=== PATIENT | male | born 1935 | race Caucasian/White ===

== ENCOUNTER 2022-10-13 12:07 | Outpatient (OUT) | payer MEDICARE, SELFPAY ==
[2022-10-13 13:53] LABS: Free T3 1.81 pg/mL (2.18-3.98); Thyroid Stimulating Hormone 1.445 uIU/mL (0.358-3.740)
== END 2022-10-13 12:08 | disposition home or self-care (01) ==
LOC: LAB 12:11
PROVIDERS: PCP Family Medicine; Visit Provider Family Medicine
DX: E03.9 Hypothyroidism, unspecified (principal)
CPT/HCPCS: 36415; 84436; 84443; 84481

== ENCOUNTER 2022-12-01 14:29 | Outpatient (OUT) | payer MEDICARE, SELFPAY ==
[2022-12-01 14:53] LABS: Hematocrit 41.9 % (42.0-54.0); Hemoglobin 13.8 g/dL (14.0-18.0); Mean Corpuscular HGB Conc 32.9 g/dL (29.9-35.2); Mean Corpuscular Hemoglobin 32.2 pg (25.9-34.0); Mean Corpuscular Volume 97.7 fL (80.0-94.0); Mean Platelet Volume 10.1 fL (9.5-13.5); Platelet Count 169 10^3/uL (150-450); Red Blood Count 4.29 10^6/uL (4.70-6.10); Red Cell Distribution Width 13.3 % (11.0-15.0); White Blood Count 6.1 10^3/uL (4.0-11.0)
[2022-12-01 15:03] LABS: Band Neutrophils Absolute 0.2 10^3/uL (0.0-0.3)
[2022-12-01 15:04] LABS: Eosinophils Absolute Manual 0.12 10^3/uL (0.00-0.70); Monocytes Absolute Manual 0.85 10^3/uL (0.30-0.80); Segmented Neut Absolute Manual 3.17 10^3/uL (1.4-6.5)
[2022-12-01 16:21] LABS: Alanine Aminotransferase 28 U/L (16-63); Albumin Globulin Ratio 0.9; Albumin Level 3.6 g/dL (3.4-5.0); Alkaline Phosphatase 71 U/L (46-116); Anion Gap 14.4; Aspartate Amino Transferase 17 U/L (15-37); BUN Creatinine Ratio 18.4; Bilirubin Total 0.7 mg/dL (0.2-1.0); Calcium 8.8 mg/dL (8.5-10.1); Carbon Dioxide 24.6 mmol/L (21.0-32.0); Chloride 104 mmol/L (98-107); Estimated GFR (African America >60 (>=60); Estimated GFR (Non-African Ame >60 (>=60); Globulin 3.9 g/dL; Glucose 80 mg/dL (74-106); Sodium 139 mmol/L (136-145); Thyroid Stimulating Hormone 0.729 uIU/mL (0.358-3.740); Total Protein 7.5 g/dL (6.4-8.2)
== END 2022-12-01 14:30 | disposition home or self-care (01) ==
LOC: LAB 14:29
PROVIDERS: PCP Family Medicine; Visit Provider Family Medicine
DX: E78.5 Hyperlipidemia, unspecified (principal); E03.9 Hypothyroidism, unspecified; I11.0 Hypertensive heart disease with heart failure; I50.30 Unspecified diastolic (congestive) heart failure
CPT/HCPCS: 36415; 80053; 83880; 84439; 84443; 85027

== ENCOUNTER 2023-01-19 14:24 | Outpatient (OUT) | payer MEDICARE, SELFPAY ==
[2023-01-19 14:51] LABS: Hematocrit 41.1 % (42.0-54.0); Mean Corpuscular HGB Conc 34.1 g/dL (29.9-35.2); Mean Corpuscular Hemoglobin 32.9 pg (25.9-34.0); Mean Corpuscular Volume 96.7 fL (80.0-94.0); Mean Platelet Volume 10.3 fL (9.5-13.5); Platelet Count 187 10^3/uL (150-450); Red Blood Count 4.25 10^6/uL (4.70-6.10); Red Cell Distribution Width 13.5 % (11.0-15.0); White Blood Count 6.5 10^3/uL (4.0-11.0)
[2023-01-19 15:13] LABS: Alanine Aminotransferase 27 U/L (16-63); Albumin Level 3.5 g/dL (3.4-5.0); Alkaline Phosphatase 73 U/L (46-116); Anion Gap 11.6; Aspartate Amino Transferase 19 U/L (15-37); BUN Creatinine Ratio 15.5; Bilirubin Total 0.6 mg/dL (0.2-1.0); Carbon Dioxide 25.6 mmol/L (21.0-32.0); Chloride 107 mmol/L (98-107); Estimated GFR (African America 57 (>=60); Estimated GFR (Non-African Ame 47 (>=60); Globulin 3.6 g/dL; Glucose 100 mg/dL (74-106); Potassium 4.2 mmol/L (3.5-5.1); Sodium 140 mmol/L (136-145); Total Protein 7.1 g/dL (6.4-8.2)
[2023-01-19 15:42] LABS: Erythrocyte Sedimentation Rate 37 mm/hr (<=20)
[2023-01-19 16:26] LABS: Band Neutrophils Absolute 0.1 10^3/uL (0.0-0.3); Metamyelocytes Absolute Manual 0.13; Monocytes Absolute Manual 0.32 10^3/uL (0.30-0.80); Segmented Neut Absolute Manual 4.55 10^3/uL (1.4-6.5)
== END 2023-01-19 14:25 | disposition home or self-care (01) ==
LOC: LAB 14:24
PROVIDERS: Visit Provider Internal Medicine Rheumatology
DX: M05.79 Rheumatoid arthritis with rheumatoid factor of multiple sites without organ or systems involvement (principal); M15.0 Primary generalized (osteo)arthritis; Z79.899 Other long term (current) drug therapy
CPT/HCPCS: 36415; 80053; 85027; 85652

== ENCOUNTER 2023-06-27 11:01 | Outpatient (OUT) | payer MEDICARE, SELFPAY ==
[2023-06-27 11:14] LABS: Hematocrit 44.4 % (42.0-54.0); Hemoglobin 14.4 g/dL (14.0-18.0); Mean Corpuscular HGB Conc 32.4 g/dL (29.9-35.2); Mean Corpuscular Hemoglobin 32.2 pg (25.9-34.0); Mean Corpuscular Volume 99.3 fL (80.0-94.0); Mean Platelet Volume 10.2 fL (9.5-13.5); Platelet Count 187 10^3/uL (150-450); Red Blood Count 4.47 10^6/uL (4.70-6.10); Red Cell Distribution Width 13.3 % (11.0-15.0); White Blood Count 6.4 10^3/uL (4.0-11.0)
[2023-06-27 11:23] LABS: Erythrocyte Sedimentation Rate 31 mm/hr (<=20)
[2023-06-27 12:11] LABS: Alanine Aminotransferase 29 U/L (16-63); Albumin Globulin Ratio 1.1; Albumin Level 3.7 g/dL (3.4-5.0); Alkaline Phosphatase 72 U/L (46-116); Anion Gap 14.2; Aspartate Amino Transferase 20 U/L (15-37); BUN Creatinine Ratio 19.6; Bilirubin Total 0.5 mg/dL (0.2-1.0); Calcium 9.2 mg/dL (8.5-10.1); Carbon Dioxide 24.9 mmol/L (21.0-32.0); Chloride 107 mmol/L (98-107); Creatine Kinase 217 U/L (39-308); Estimated GFR (African America >60 (>=60); Estimated GFR (Non-African Ame >60 (>=60); Globulin 3.5 g/dL; Glucose 80 mg/dL (74-106); Potassium 4.1 mmol/L (3.5-5.1); Sodium 142 mmol/L (136-145); Total Protein 7.2 g/dL (6.4-8.2)
[2023-06-27 13:31] LABS: Lymphocytes Absolute Manual 2.62 10^3/uL (1.20-3.80); Metamyelocytes Absolute Manual 0.12; Monocytes Absolute Manual 0.64 10^3/uL (0.30-0.80)
== END 2023-06-27 11:02 | disposition home or self-care (01) ==
LOC: LAB 11:01
PROVIDERS: Visit Provider Internal Medicine Rheumatology
DX: M15.0 Primary generalized (osteo)arthritis (principal); M48.10 Ankylosing hyperostosis [Forestier], site unspecified; Z79.899 Other long term (current) drug therapy
CPT/HCPCS: 36415; 80053; 82550; 85007; 85027; 85652

== ENCOUNTER 2023-07-10 13:02 | Inpatient (IN) | payer MEDICARE, SELFPAY ==
[2023-07-10] VITALS (28 sets, daily range): BP systolic 90–119; BP diastolic 57–73; PULSE 97–140; TEMP 36.2–36.7; O2SAT 87–98; BMI 25.0
--- OUTSIDE RECORDS SUMMARY | 2023-07-10 13:13 | XMS_ITS | CCD ---
Author Organization [facility] Care Team Providers Care Medical Scheduler Name Role Phone NATASHA, DR REAVES Consulting Unavailable KAUR, DR REAVES Attending Unavailable HOY ., DR PARRA Primary Care Unavailable KAUR, DR REAVES Admitting Unavailable MISC, DR GAINES Consulting Unavailable KAUR, DR REAVES Attending Unavailable KAUR, DR REAVES Admitting Unavailable HOY ., DR PARRA Primary Care Unavailable HOY ., DR PARRA Primary Care Unavailable HAY ., DR DESOUZA Admitting Unavailable HAY ., DR DESOUZA Consulting Unavailable HAY ., DR DESOUZA Attending Unavailable KNABE, CELESTE Consulting Unavailable KAUR, DR REAVES Attending Unavailable KAUR, DR JELLY Ruizitting Unavailable HOY ., DR PARRA Primary Care Unavailable KAUR, DR REAVES Attending Unavailable KAUR, DR REAVES Admitting Unavailable HOY ., DR PARRA Primary Care Unavailable KAUR, DR REAVES Consulting Unavailable Problems Active Problems Problem Classification Problem Date Documented Date Episodic/Chronic Chronic kidney disease (1 source) Chronic kidney disease, stage 2 (mild); Translations: [CHRONIC KIDNEY DISEASE STAGE 2 MILD] Onset: 2 Chronic Chronic obstructive pulmonary disease and bronchiectasis (1 source) Emphysema, unspecified; Translations: [EMPHYSEMA UNSPECIFIED] Onset: 2 Chronic Coronary atherosclerosis and other heart disease (2 sources) Old myocardial infarction; Translations: [Atherosclerotic heart disease of [place] coronary artery without angina pectoris] Onset: 2 Chronic Disorders of lipid metabolism (1 source) Pure hypercholesterolemia, unspecified; Translations: [PURE HYPERCHOLESTEROLEMIA UNSPEC] Onset: 2 Chronic Hyperplasia of prostate (1 source) Benign prostatic hyperplasia without lower urinary tract symptoms; Translations: [BENIGN PROSTATIC HYPRPLASIA WO LUTS] Onset: 2 Chronic Osteoarthritis (2 sources) Primary generalized (osteo)arthritis; Translations: [Unspecified osteoarthritis, unspecified site] Onset: 2 Chronic Other aftercare (1 source) Other long term care administrator (current) drug therapy; Translations: [OTH NURSE SANE CURRENT DRUG THERAPY] Onset: 3 Episodic Other ear and sense organ disorders (1 source) Unspecified hearing loss, right ear; Translations: [UNSPECIFIED HEARING LOSS RIGHT EAR] Onset: 2 Chronic Rheumatoid arthritis and related disease (5 sources) Rheumatoid arthritis with rheumatoid factor of multiple sites without organ or systems involvement; Translations: [Rheumatoid arthritis, unspecified] Onset: 2 Chronic Thyroid disorders (1 source) Hypothyroidism, unspecified; Translations: [HYPOTHYROIDISM UNSPECIFIED] Onset: 2 Chronic Past or Other Problems Problem Classification Problem Date Documented Da te Episodic/Chronic Coronary atherosclerosis and other heart disease (1 source) Presence of aortocoronary bypass graft; Translations: [PRESENCE AORTOCORONARY BYPASS GRAFT] Onset: 03-15-2022 Episodic Deficiency and other anemia (1 source) Iron deficiency anemia, unspecified; Translations: [IRON DEFICIENCY ANEMIA UNSPECIFIED] Onset: 03-15-2022 Episodic E Codes: Fall (1 source) Fall (on) (from) unspecified stairs and steps, initial encounter; Translations: [FALL ON FROM UNS STAIRS STEPS INIT] Onset: 03-15-2022 Episodic Other aftercare (1 source) USP (current) use of aspirin; Translations: [ASSISTED CURRENT USE OF ASPIRIN] Onset: 03-15-2022 Episodic Other non-traumatic joint disorders (3 sources) Pain in right knee; Translations: [PAIN IN RIGHT KNEE] Onset: 03-13-2022 Episodic Screening and history of mental health and substance abuse codes (1 source) Personal history of nicotine dependence; Translations: [PERSONAL HISTORY OF NICOTINE DEPEND] Onset: 03-15-2022 Episodic Superficial injury; contusion (2 sources) Contusion of right knee, initial encounter; Translations: [Abrasion, right knee, initial encounter] Onset: 03-15-2022 Episodic Results Test Name Value Interpretation Reference Range Facility CBC W MANUAL DIFFon 08-13-19 ATYPICAL LYMPH # Normal [facility] Comment on above: Performed By: #### C RUSS #### [facility] [address] [place] [address] Dr. Jasbir Ocampo ATYPICAL LYMPH % Normal [facility] Comment on above: Performed By: #### C BCKELLY #### [facility] [address] [place] [address] Dr. Jasbir Ocampo BAND # 0.0 103/ul Normal 0.0-0.3 [facility] Comment on above: Performed By: #### C BCKELLY #### [facility] [address] [place] [address] Dr. Jasbir Ocampo BAND % 0 % Normal 0-5 [facility] Comment on above: Performed By: #### C RUSS #### [facility] [address] [place] [address] Dr. Jasbir Ocampo BASOM # 0.00 103/ul Normal 0.00-0.10 [facility] Comment on above: Performed By: #### C RUSS #### [facility] [address] [place] [address] Dr. Jasbir Ocampo BASOM % 0.0 % Critically low 0.2-2.0 [facility] Comment on above: Performed By: #### C RUSS #### [facility] [address] [place] [address] Dr. Jasbir Ocampo BLAST # Normal [facility] Comment on above: Performed By: #### C RUSS #### [facility] [address] [place] [address] Dr. Jasbir Ocampo BLAST % Normal [facility] Comment on above: Performed By: #### C RUSS #### [facility] [address] [place] [address] Dr. Jasbir Ocampo CORRECTED WBC Normal 4.0-11.0 [facility] Comment on above: Performed By: #### C RUSS #### [facility] [address] [place] [address] Dr. Jasbir Ocampo EOS # 0.05 103/ul Normal 0.00-0.70 [facility] Comment on above: Performed By: #### C RUSS #### [facility] [address] [place] [address] Dr. Jasbir Ocampo EOS% 1.0 % Normal 0.9-7.0 [facility] Comment on above: Performed By: #### C RUSS #### [facility] [address] [address] [address] Jasbir Ocampo HCT 42.5 % Normal 42.0-54.0 [facility] Comment on above: Performed By: #### C RUSS #### [facility] [address] [address] [address] Jasbir Ocampo HGB 14.2 g/dl Normal 14.0-18.0 [facility] Comment on above: Performed By: #### C RUSS #### [facility] [address] [address] [address] Jasbir Ocampo LYMPHM # 2.02 103/ul Normal 1.20-3.80 [facility] Comment on above: Performed By: #### C RUSS #### [facility] [address] [place] [address] Dr. Jasbir Ocampo LYMPHM% 43.0 % Normal 20.5-60.0 [facility] Comment on above: Performed By: #### C RUSS #### [facility] [address] [place] [address] Dr. Jasbir Ocampo MCH 32.1 pg Normal 25.9-34.0 [facility] Comment on above: Performed By: #### C RUSS #### [facility] [address] [place] [address] Dr. Jasbir Ocampo MCHC 33.4 g/dl Normal 29.9-35.2 [facility] Comment on above: Performed By: #### C RUSS #### [facility] [address] [place] [address] Dr. Jasbir Ocampo MCV 96.2 fL Critically high 80.0-94.0 [facility] Comment on above: Performed By: #### C RUSS #### [facility] [address] [place] [address] Dr. Jasbir Ocampo METAMYELOCYTE # Normal [facility] Comment on above: Performed By: #### C RUSS #### [facility] [address] [place] [address] Dr. Jasbir Ocampo METAMYELOCYTE % Normal [facility] Comment on above: Performed By: #### C BCMAN #### [facility] [address] [address] [address] Jasbir Ocampo MONOM# 0.09 103/ul Critically low 0.30-0.80 [facility] Comment on above: Performed By: #### C BCMAN #### [facility] [address] [address] [address] Jasbir Ocampo MONOM% 2.0 % Normal 1.7-12.0 [facility] Comment on above: Performed By: #### C BCMAN #### [facility] [address] [address] [address] Jasbir Ocampo MPV 9.8 fL Normal 9.5-13.5 [facility] Comment on above: Performed By: #### C RUSS #### [facility] [address] [place] [address] Dr. Jasbir Ocampo MYELOCYTE # Normal [facility] Comment on above: Performed By: #### C BCKELLY #### [facility] [address] [address] [address] Jasbir Ocampo MYELOCYTE % Normal [facility] Comment on above: Performed By: #### C BCKELLY #### [facility] [address] [place] [address] Dr. Jasbir Ocampo NRBC Normal [facility] Comment on above: Performed By: #### C RUSS #### [facility] [address] [place] [address] Dr. Jasbir Ocampo PLT 171 103/ul Normal 150-450 [facility] Comment on above: Performed By: #### C BCMAN #### [facility] [address] [address] [address] Jasbir Ocampo RBC 4.42 106/ul Critically low 4.70-6.10 [facility] Comment on above: Performed By: #### C BCKELLY #### [facility] [address] [place] [address] Dr. Jasbir Ocampo RDW 13.4 % Normal 11.0-15.0 [facility] Comment on above: Performed By: #### C BCMAN #### [facility] [address] [address] [address] Jasbir Ocampo SEG # 2.54 103/ul Normal 1.40-6.50 [facility] Comment on above: Performed By: #### C BCMAN #### [facility] [address] [place] [address] Dr. Jasbir Ocampo SEG % 54.0 % Normal 43.0-75.0 [facility] Comment on above: Performed By: #### C BCMAN #### [facility] [address] [place] [address] Dr. Jasbir Ocampo WBC 4.7 103/ul Normal 4.0-11.0 [facility] Comment on above: Performed By: #### C RUSS #### [facility] [address] [place] [address] Dr. Jasbir Ocampo PROF 14(COMP METB)on 023 Albumin [Mass/Vol] 3.5 g/dL Normal 3.4-5.0 [facility] Comment on above: Performed By: #### C MP, CK #### [facility] [address] [place] [address] Dr. Jasbir Ocampo Albumin/Globulin [Mass ratio] 0.9 {ratio} Normal [facility] Comment on above: Performed By: #### C MP, CK #### [facility] [address] [place] [address] Dr. Jasbir Ocampo ALP [Catalytic activity/Vol] 71 U/L Normal 46-116 [facility] Comment on above: Performed By: #### C MP, CK #### [facility] [address] [place] [address] Dr. Jasbir Ocampo ALT [Catalytic activity/Vol] 32 U/L Normal 16-63 [facility] Comment on above: Performed By: #### C MP, CK #### [facility] [address] [place] [address] Dr. Jasbir Ocampo Anion gap [Moles/Vol] 11.2 mmol/L Normal [facility] Comment on above: Performed By: #### C MP, CK #### [facility] [address] [address] [address] Jasbir Ocampo AST [Catalytic activity/Vol] 21 U/L Normal 15-37 [facility] Comment on above: Performed By: #### C MP, CK #### [facility] [address] [address] [address] Jasbir Ocampo Bilirubin [Mass/Vol] 0.6 mg/dL Normal 0.2-1.0 [facility] Comment on above: Performed By: #### C MP, CK #### [facility] [address] [address] [address] Jasbir Ocampo Calcium [Mass/Vol] 8.7 mg/dL Normal 8.5-10.1 [facility] Comment on above: Performed By: #### C MP, CK #### [facility] [address] [address] [address] Jasbir Ocampo Chloride [Moles/Vol] 104 mmol/L Normal 98-107 [facility] Comment on above: Performed By: #### C MP, CK #### [facility] [address] [address] [address] Jasbir Ocampo CO2 [Moles/Vol] 26.9 mmol/L Normal 21.0-32.0 [facility] Comment on above: Performed By: #### C MP, CK #### [facility] [address] [address] [address] Jasbir Ocampo Creatinine [Mass/Vol] 1.21 mg/dL Normal 0.70-1.30 [facility] Comment on above: Performed By: #### C MP, CK #### [facility] [address] [address] [address] Jasbir Ocampo EGFR-AF SAO TOMEAN >60 Normal >=60 [facility] Comment on above: Performed By: #### C MP, CK #### [facility] [address] [address] [address] Jasbir Ocampo EGFR-NON AF SAO TOMEAN 57 mL/min/1.73m2 Critically low >=60 [facility] Comment on above: Performed By: #### C MP, CK #### [facility] [address] [address] [address] Jasbir Ocampo Globulin (S) [Mass/Vol] 3.7 g/dL Normal [facility] Comment on above: Performed By: #### C MP, CK #### [facility] [address] [address] [address] Jasbir Ocampo Glucose [Mass/Vol] 86 mg/dL Normal 74-106 [facility] Comment on above: Performed By: #### C MP, CK #### [facility] [address] [address] [address] Jasbir Ocampo Potassium [Moles/Vol] 4.1 mmol/L Normal 3.5-5.1 [facility] Comment on above: Performed By: #### C MP, CK #### [facility] [address] [address] [address] Jasbir Ocampo Protein [Mass/Vol] 7.2 g/dL Normal 6.4-8.2 [facility] Comment on above: Performed By: #### C MP, CK #### [facility] [address] [address] [address] Jasbir Ocampo Sodium [Moles/Vol] 138 mmol/L Normal 136-145 [facility] Comment on above: Performed By: #### C MP, CK #### [facility] [address] [address] [address] Jasbir Ocampo Urea nitrogen [Mass/Vol] 18.0 mg/dL Normal 7.0-18.0 [facility] Comment on above: Performed By: #### C MP, CK #### [facility] [address] [address] [address] Jasbir Ocampo Urea nitrogen/Creatinine [Mass ratio] 14.9 mg/mg Normal [facility] Comment on above: Performed By: #### C MP, CK #### [facility] [address] [address] [address] Jasbir Ocampo SED RATE [facility] 2022 SED RATE 13 mm/hr Normal <=20 [facility] Comment on above: Performed By: #### S EDR #### [facility] [address] [address] [address] Jasbir Ocampo XR KNEE RT 4V or >on 022 XR KNEE RT 4V or > EXAM: XR KNEE RT 4V or > HISTORY: Right knee injury. The technologist notes state pain and abrasion following a fall. COMPARISON: None. TECHNIQUE: 4 view right knee series performed. FINDINGS: The bony structures are osteopenic. There is no fracture. There is chondrocalcinosis and mild tricompartmental degenerative changes. There is no joint effusion at the knee. There is mild soft tissue swelling anterior to the knee. IMPRESSION: There is no acute fracture. Mild soft tissue swelling anterior to the knee. Electronically authenticated by: CELESTE CREWS Date: 2022-03-13 11:27 Normal [facility] CBC AUTO DIFFon 03-11-2022 BASO # 0.0 103/ul Normal 0.0-0.1 [facility] Comment on above: Performed By: #### C BC #### [facility] [address] [place] [address] Dr. Jasbir Ocampo Basophils/100 WBC (Bld) 0.5 % Normal 0.2-2.0 [facility] Comment on above: Performed By: #### C BC #### [facility] [address] [place] [address] Dr. Jasbir Ocampo EO # 0.2 103/ul Normal 0.0-0.7 [facility] Comment on above: Performed By: #### C BC #### [facility] [address] [place] [address] Dr. Jasbir Ocampo Eosinophils/100 WBC (Bld) 2.8 % Normal 0.9-7.0 [facility] Comment on above: Performed By: #### C BC #### [facility] [address] [place] [address] Dr. Jasbir Ocampo Erythrocyte distribution width (RBC) [Ratio] 14.0 % Normal 11.0-15.0 [facility] Comment on above: Performed By: #### C BC #### [facility] [address] [address] [address] Jasbir Ocampo Hematocrit (Bld) [Volume fraction] 42.8 % Normal 42.0-54.0 [facility] Comment on above: Performed By: #### C BC #### [facility] [address] [place] [address] Dr. Jasbir Ocampo Hemoglobin (Bld) [Mass/Vol] 14.1 g/dL Normal 14.0-18.0 [facility] Comment on above: Performed By: #### C BC #### [facility] [address] [place] [address] Dr. Jasbir Ocampo IG # 0.04 10e3/ul Critically high 0.00-0.03 [facility] Comment on above: Performed By: #### C BC #### [facility] [address] [place] [address] Dr. Jasbir Ocampo IG % 0.7 % Critically high 0.0-0.5 [facility] Comment on above: Performed By: #### C BC #### [facility] [address] [place] [address] Dr. Jasbir Ocampo LYMPH # 2.5 103/ul Normal 1.2-3.8 [facility] Comment on above: Performed By: #### C BC #### [facility] [address] [place] [address] Dr. Jasbir Ocampo Lymphocytes/100 WBC (Bld) 44.1 % Normal 20.5-60.0 [facility] Comment on above: Performed By: #### C BC #### [facility] [address] [place] [address] Dr. Jasbir Ocampo MANUAL DIFF REQ NO Normal [facility] Comment on above: Performed By: #### C BC #### [facility] [address] [place] [address] Dr. Jasbir Ocampo MCH (RBC) [Entitic mass] 31.2 pg Normal 25.9-34.0 [facility] Comment on above: Performed By: #### C BC #### [facility] [address] [place] [address] Dr. Jasbir Ocampo MCHC (RBC) [Mass/Vol] 32.9 g/dL Normal 29.9-35.2 [facility] Comment on above: Performed By: #### C BC #### [facility] [address] [place] [address] Dr. Jasbir Ocampo MCV (RBC) [Entitic vol] 94.7 fL Critically high 80.0-94.0 [facility] Comment on above: Performed By: #### C BC #### [facility] [address] [place] [address] Dr. Jasbir Ocampo MONO # 0.5 103/ul Normal 0.3-0.8 [facility] Comment on above: Performed By: #### C BC #### [facility] [address] [place] [address] Dr. Jasbir Ocampo Monocytes/100 WBC (Bld) 7.8 % Normal 1.7-12.0 [facility] Comment on above: Performed By: #### C BC #### [facility] [address] [place] [address] Dr. Jasbir Ocampo NEUT # 2.5 103/ul Normal 1.4-6.5 [facility] Comment on above: Performed By: #### C BC #### [facility] [address] [place] [address] Dr. Jasbir Ocampo Neutrophils/100 WBC (Bld) 44.1 % Normal 43.0-75.0 [facility] Comment on above: Performed By: #### C BC #### [facility] [address] [place] [address] Dr. Jasbir Ocampo Platelet mean volume (Bld) [Entitic vol] 10.3 fL Normal 9.5-13.5 [facility] Comment on above: Performed By: #### C BC #### [facility] [address] [place] [address] Dr. Jasbir Ocampo PLT 238 103/ul Normal 150-450 [facility] Comment on above: Performed By: #### C BC #### [facility] [address] [place] [address] Dr. Jasbir Ocampo RBC 4.52 106/ul Critically low 4.70-6.10 [facility] Comment on above: Performed By: #### C BC #### [facility] [address] [place] [address] Dr. Jasbir Ocampo WBC 5.7 103/ul Normal 4.0-11.0 [facility] Comment on above: Performed By: #### C BC #### [facility] [address] [place] [address] Dr. Jasbir Ocampo CPKon 03-11-2022 CK [Catalytic activity/Vol] 130 U/L Normal 39-308 [facility] Comment on above: Performed By: #### C MP, CK #### [facility] [address] [place] [address] Dr. Jasbir Ocampo PROF 14(COMP METB)on 022 Albumin [Mass/Vol] 3.3 g/dL Critically low 3.4-5.0 [facility] Comment on above: Performed By: #### C MP, CK #### [facility] [address] [place] [address] Dr. Jasbir Ocampo Albumin/Globulin [Mass ratio] 0.8 {ratio} [facility] Comment on above: Performed By: #### C MP, CK #### [facility] [address] [place] [address] Dr. Jasbir Ocampo ALP [Catalytic activity/Vol] 74 U/L Normal 46-116 [facility] Comment on above: Performed By: #### C MP, CK #### [facility] [address] [place] [address] Dr. Jasbir Ocampo ALT [Catalytic activity/Vol] 22 U/L Normal 16-63 [facility] Comment on above: Performed By: #### C MP, CK #### [facility] [address] [place] [address] Dr. Jasbir Ocampo Anion gap [Moles/Vol] 11.5 mmol/L Normal [facility] Comment on above: Performed By: #### C MP, CK #### [facility] [address] [place] [address] Dr. Jasbir Ocampo AST [Catalytic activity/Vol] 20 U/L Normal 15-37 [facility] Comment on above: Performed By: #### C MP, CK #### [facility] [address] [place] [address] Dr. Jasbir Ocampo Bilirubin [Mass/Vol] 0.5 mg/dL Normal 0.2-1.0 [facility] Comment on above: Performed By: #### C MP, CK #### [facility] [address] [place] [address] Dr. Jasbir Ocampo Calcium [Mass/Vol] 8.8 mg/dL Normal 8.5-10.1 [facility] Comment on above: Performed By: #### C MP, CK #### [facility] [address] [place] [address] Dr. Jasbir Ocampo Chloride [Moles/Vol] 102 mmol/L Normal 98-107 [facility] Comment on above: Performed By: #### C MP, CK #### [facility] [address] [place] [address] Dr. Jasbir Ocampo CO2 [Moles/Vol] 27.5 mmol/L Normal 21.0-32.0 [facility] Comment on above: Performed By: #### C MP, CK #### [facility] [address] [place] [address] Dr. Jasbir Ocampo Creatinine [Mass/Vol] 0.99 mg/dL Normal 0.70-1.30 [facility] Comment on above: Performed By: #### C MP, CK #### [facility] [address] [place] [address] Dr. Jasbir Ocampo EGFR-AF SAO TOMEAN >60 Normal >=60 [facility] Comment on above: Performed By: #### C MP, CK #### [facility] [address] [place] [address] Dr. Jasbir Ocampo EGFR-NON AF SAO TOMEAN >60 Normal >=60 [facility] Comment on above: Performed By: #### C MP, CK #### [facility] [address] [place] [address] Dr. Jasbir Ocampo Globulin (S) [Mass/Vol] 4.1 g/dL Normal [facility] Comment on above: Performed By: #### C MP, CK #### [facility] [address] [place] [address] Dr. Jasbir Ocampo Glucose [Mass/Vol] 90 mg/dL Normal 74-106 [facility] Comment on above: Performed By: #### C MP, CK #### [facility] [address] [address] [address] Jasbir Ocampo Potassium [Moles/Vol] 4.0 mmol/L Normal 3.5-5.1 [facility] Comment on above: Performed By: #### C MP, CK #### [facility] [address] [place] [address] Dr. Jasbir Ocampo Protein [Mass/Vol] 7.4 g/dL Normal 6.4-8.2 [facility] Comment on above: Performed By: #### C MP, CK #### [facility] [address] [place] [address] Dr. Jasbir Ocampo Sodium [Moles/Vol] 137 mmol/L Normal 136-145 [facility] Comment on above: Performed By: #### C MP, CK #### [facility] [address] [place] [address] Dr. Jasbir Ocampo Urea nitrogen [Mass/Vol] 21.0 mg/dL Critically high 7.0-18.0 [facility] Comment on above: Performed By: #### C MP, CK #### [facility] [address] [place] [address] Dr. Jasbir Ocampo Urea nitrogen/Creatinine [Mass ratio] 21.2 mg/mg Normal [facility] Comment on above: Performed By: #### C MP, CK #### [facility] [address] [place] [address] Dr. Jasbir Ocampo SED RATE [facility] 2021 SED RATE 43 mm/hr Critically high <=20 [facility] Comment on above: Performed By: #### S EDR #### [facility] [address] [place] [address] Dr. Jasbir Ocampo CBC AUTO DIFFon 10-28-2021 BASO # 0.0 103/ul Normal 0.0-0.1 [facility] Comment on above: Performed By: #### C MP, CK #### [facility] [address] [place] [address] Dr. Jasbir Ocampo Basophils/100 WBC (Bld) 0.6 % Normal 0.2-2.0 [facility] Comment on above: Performed By: #### C MP, CK #### [facility] [address] [place] [address] Dr. Jasbir Ocampo EO # 0.1 103/ul Normal 0.0-0.7 [facility] Comment on above: Performed By: #### C MP, CK #### [facility] [address] [place] [address] Dr. Jasbir Ocampo Eosinophils/100 WBC (Bld) 2.3 % Normal 0.9-7.0 [facility] Comment on above: Performed By: #### C MP, CK #### [facility] [address] [place] [address] Dr. Jasbir Ocampo Erythrocyte distribution width (RBC) [Ratio] 13.7 % Normal 11.0-15.0 [facility] Comment on above: Performed By: #### C MP, CK #### [facility] [address] [place] [address] Dr. Jasbir Ocampo Hematocrit (Bld) [Volume fraction] 41.8 % Critically low 42.0-54.0 [facility] Comment on above: Performed By: #### C MP, CK #### [facility] [address] [place] [address] Dr. Jasbir Ocampo Hemoglobin (Bld) [Mass/Vol] 13.8 g/dL Critically low 14.0-18.0 [facility] Comment on above: Performed By: #### C MP, CK #### [facility] [address] [place] [address] Dr. Jasbir Ocampo IG # 0.02 10e3/ul Normal 0.00-0.03 [facility] Comment on above: Performed By: #### C MP, CK #### [facility] [address] [place] [address] Dr. Jasbir Ocampo IG % 0.4 % Normal 0.0-0.5 [facility] Comment on above: Performed By: #### C MP, CK #### [facility] [address] [place] [address] Dr. Jasbir Ocampo LYMPH # 1.8 103/ul Normal 1.2-3.8 [facility] Comment on above: Performed By: #### C MP, CK #### [facility] [address] [place] [address] Dr. Jasbir Ocampo Lymphocytes/100 WBC (Bld) 36.7 % Normal 20.5-60.0 [facility] Comment on above: Performed By: #### C MP, CK #### [facility] [address] [place] [address] Dr. Jasbir Ocampo MANUAL DIFF REQ NO Normal [facility] Comment on above: Performed By: #### C MP, CK #### [facility] [address] [place] [address] Dr. Jasbir Ocampo MCH (RBC) [Entitic mass] 31.9 pg Normal 25.9-34.0 [facility] Comment on above: Performed By: #### C MP, CK #### [facility] [address] [place] [address] Dr. Jasbir Ocampo MCHC (RBC) [Mass/Vol] 33.0 g/dL Normal 29.9-35.2 [facility] Comment on above: Performed By: #### C MP, CK #### [facility] [address] [place] [address] Dr. Jasbir Ocampo MCV (RBC) [Entitic vol] 96.8 fL Critically high 80.0-94.0 [facility] Comment on above: Performed By: #### C MP, CK #### [facility] [address] [place] [address] Dr. Jasbir Ocampo MONO # 0.4 103/ul Normal 0.3-0.8 [facility] Comment on above: Performed By: #### C MP, CK #### [facility] [address] [address] [address] Jasbir Ocampo Monocytes/100 WBC (Bld) 9.0 % Normal 1.7-12.0 [facility] Comment on above: Performed By: #### C MP, CK #### [facility] [address] [address] [address] Jasbir Ocampo NEUT # 2.5 103/ul Normal 1.4-6.5 [facility] Comment on above: Performed By: #### C MP, CK #### [facility] [address] [place] [address] Dr. Jasbir Ocampo Neutrophils/100 WBC (Bld) 51.0 % Normal 43.0-75.0 [facility] Comment on above: Performed By: #### C MP, CK #### [facility] [address] [place] [address] Dr. Jasbir Ocampo Platelet mean volume (Bld) [Entitic vol] 10.0 fL Normal 9.5-13.5 [facility] Comment on above: Performed By: #### C MP, CK #### [facility] [address] [place] [address] Dr. Jasbir Ocampo PLT 192 103/ul Normal 150-450 [facility] Comment on above: Performed By: #### C MP, CK #### [facility] [address] [address] [address] Jasbir Ocampo RBC 4.32 106/ul Critically low 4.70-6.10 [facility] Comment on above: Performed By: #### C MP, CK #### [facility] [address] [place] [address] Dr. Jasbir Ocampo WBC 4.9 103/ul Normal 4.0-11.0 [facility] Comment on above: Performed By: #### C MP, CK #### [facility] [address] [place] [address] Dr. Jasbir Ocampo CPKon 10-28-2021 CK [Catalytic activity/Vol] 163 U/L Normal 39-308 [facility] Comment on above: Performed By: #### C MP, CK #### [facility] [address] [address] [address] Jasbir Ocampo PROF 14(COMP METB)on 022 Albumin [Mass/Vol] 3.6 g/dL Normal 3.4-5.0 [facility] Comment on above: Performed By: #### C MP, CK #### [facility] [address] [place] [address] Dr. Jasbir Ocampo Albumin/Globulin [Mass ratio] 1.1 {ratio} Normal [facility] Comment on above: Performed By: #### C MP, CK #### [facility] [address] [place] [address] Dr. Jasbir Ocampo ALP [Catalytic activity/Vol] 71 U/L Normal 46-116 [facility] Comment on above: Performed By: #### C MP, CK #### [facility] [address] [place] [address] Dr. Jasbir Ocampo ALT [Catalytic activity/Vol] 24 U/L Normal 16-63 [facility] Comment on above: Performed By: #### C MP, CK #### [facility] [address] [place] [address] Dr. Jasbir Ocampo Anion gap [Moles/Vol] 14.2 mmol/L Normal [facility] Comment on above: Performed By: #### C MP, CK #### [facility] [address] [place] [address] Dr. Jasbir Ocampo AST [Catalytic activity/Vol] 17 U/L Normal 15-37 [facility] Comment on above: Performed By: #### C MP, CK #### [facility] [address] [place] [address] Dr. Jasbir Ocampo Bilirubin [Mass/Vol] 0.6 mg/dL Normal 0.2-1.0 [facility] Comment on above: Performed By: #### C MP, CK #### [facility] [address] [place] [address] Dr. Jasbir Ocampo Calcium [Mass/Vol] 8.9 mg/dL Normal 8.5-10.1 [facility] Comment on above: Performed By: #### C MP, CK #### [facility] [address] [address] [address] Jasbir Ocampo Chloride [Moles/Vol] 105 mmol/L Normal 98-107 [facility] Comment on above: Performed By: #### C MP, CK #### [facility] [address] [address] [address] Jasbir Ocampo CO2 [Moles/Vol] 23.5 mmol/L Normal 21.0-32.0 [facility] Comment on above: Performed By: #### C MP, CK #### [facility] [address] [address] [address] Jasbir Ocampo Creatinine [Mass/Vol] 1.14 mg/dL Normal 0.70-1.30 [facility] Comment on above: Performed By: #### C MP, CK #### [facility] [address] [place] [address] Dr. Jasbir Ocampo EGFR-AF SAO TOMEAN >60 Normal >=60 [facility] Comment on above: Performed By: #### C MP, CK #### [facility] [address] [place] [address] Dr. Jasbir Ocampo EGFR-NON AF SAO TOMEAN >60 Normal >=60 [facility] Comment on above: Performed By: #### C MP, CK #### [facility] [address] [address] [address] Jasbir Ocampo Globulin (S) [Mass/Vol] 3.4 g/dL Normal [facility] Comment on above: Performed By: #### C MP, CK #### [facility] [address] [address] [address] Jasbir Ocampo Glucose [Mass/Vol] 91 mg/dL Normal 74-106 [facility] Comment on above: Performed By: #### C MP, CK #### [facility] [address] [address] [address] Jasbir Ocampo Potassium [Moles/Vol] 4.7 mmol/L Normal 3.5-5.1 [facility] Comment on above: Performed By: #### C MP, CK #### [facility] [address] [address] [address] Jasbir Ocampo Protein [Mass/Vol] 7.0 g/dL Normal 6.4-8.2 [facility] Comment on above: Performed By: #### C MP, CK #### [facility] [address] [address] [address] Jasbir Ocampo Sodium [Moles/Vol] 138 mmol/L Normal 136-145 [facility] Comment on above: Performed By: #### C MP, CK #### [facility] [address] [address] [address] Jasbir Ocampo Urea nitrogen [Mass/Vol] 20.0 mg/dL Critically high 7.0-18.0 [facility] Comment on above: Performed By: #### C MP, CK #### [facility] [address] [address] [address] Jasbir Ocampo Urea nitrogen/Creatinine [Mass ratio] 17.5 mg/mg Normal [facility] Comment on above: Performed By: #### C MP, CK #### [facility] [address] [address] [address] Jasbir Ocampo SED RATE [facility] 2021 SED RATE 11 mm/hr Normal <=20 [facility] Comment on above: Performed By: #### S EDR #### [facility] [address] [address] [address] Jasbir Ocampo Ambulatory Clinical Summaryo n 10-28-2020 Ambulatory Clinical Summary {[id number] Normal [facility] General Surgery Office/Clini c Noteon 10-28-2020 General Surgery Office/Clinic Note Chief Complaint post operative follow up HPI Staff 12 day post operative follow up post in-office excisional biopsy left axilla. Denies bleeding or drainage. Sutures intact. History of Present Illness 12 days s/p excision epidermal cyst left axilla, doing well; denies pain or drainage; pathology consistent with epidermal cyst. Review of Systems ROS - Provider Constitutional: no fever, no sweats, no weight loss. Eyes: yes glasses, no blurred vision, no visual loss. ENMT: no dentures, no hoarseness, no swallowing difficulties, no hearing loss, no ear infection(s), no nose bleeds. Cardiovascular: normal blood pressure, no chest pain, regular heartbeat, no heart murmur. Respiratory: no shortness of breath, no cough, no asthma, no wheezing. Gastrointestinal: no nausea, no vomiting, no diarrhea, no constipation, no blood in stool, no change in bowel habits, no abdominal pain, no hepatitis. Genitourinary: no kidney stones, no urine infection, no dysuria. Musculoskeletal: mild pain, no weakness. Skin: no changing moles, no rash, no skin lumps. Neurologic: no seizures, no epilepsy, no headache. Psychiatric: no emotional or psychiatric problem. Heme/Lymph: no bleeding problems, no anemia, no blood clots, no transfusions. Allergy/Immunologic: no swollen lymph nodes/glands, no IV drug abuse. Other: Additional ROS info: Except as noted in the above Review of Systems and in the History of Present Illness, all other systems have been reviewed and are negative or noncontributory. Physical Exam Vitals & Measurements T: 36.6 ?C (Temporal Artery) skin: incision healing well, no erythema or drainage. Assessment/Plan 1. Infected sebaceous cyst (L72.3: Sebaceous cyst) doing well, sutures removed, follow up as needed; call with problems/questions. Follow-up No qualifying data available Problem List/Past Medical History Ongoing Arteriosclerotic heart disease Back pain, thoracic Benign prostatic hyperplasia Cervicalgia COPD mixed type DJD (degenerative joint disease) Dysphagia Furuncle of left axilla Hearing loss Hyperlipidemia Hypothyroid Infected sebaceous cyst Ischemic cardiomyopathy Lupus arthritis Paroxysmal SVT (supraventricular tachycardia) Spondylosis, lumbosacral Trigger finger, left Historical Acute myocardial infarction Procedure/Surgical History Excisional biopsy (10/16/2020), Colonoscopy (03/24/2016), EGD (esophagogastroduodeno scopy) gastric outlet reduction (03/24/2016), Appendectomy, Arthroscopy of knee, Heart procedure, I and D, Inguinal hernia, Tonsillectomy. Medications aspirin 81 mg Chew Tab, 81 mg= 1 tab(s), Oral, Daily doxycycline monohydrate 100 mg oral tablet, 100 mg= 1 tab(s), Oral, BID Glucosamine Chondroitin, Oral, Daily levothyroxine 112 mcg (0.112 mg) oral capsule, 112 mcg= 1 cap(s), Oral, Daily Multi Vitamin+ pantoprazole 40 mg Oral EC Tab, 40 mg= 1 tab(s), Oral, Daily simvastatin 40 mg Tab, 40 mg= 1 tab(s), Oral, Once a day (at bedtime) Symbicort 160/4.5 inhalation aerosol with adapter, 2 puff(s), Inhalation, BID Ultram 50 mg Tab, 50 mg= 1 tab(s), Oral, q6hr, PRN Allergies No Known Allergies Social History Substance Abuse - Denies Substance Abuse, 10/10/2020 Tobacco Former smoker, quit more than 30 days ago Tobacco Use:. Never Smokeless Tobacco Use:. Cigarettes, 10/28/2020 Family History Family history is negative Normal [facility] Comment on above: Result Comment: Elec tronically Signed By: QING LAYTON, Wolf Rainey.karthikeyan\Date and Time Signed: 10/28/20 13:11 EDT Pathology Noteon 10-21-2020 Pathology Note [id number] 0CD:127 Normal [facility] Ambulatory Clinical Summaryo n 10-16-2020 Ambulatory Clinical Summary {[id number] Normal [facility] General Surgery Office/Clini c Noteon 10-16-2020 General Surgery Office/Clinic Note HPI Staff Presents for excisional biopsy sebaceous cyst left axilla. History of Present Illness patient here for excision of sebaceous cyst left axilla; no change since recent evaluation. Review of Systems ROS - Provider Constitutional: no fever, no sweats, no weight loss. Eyes: no glasses, no blurred vision, no visual loss. ENMT: no dentures, no hoarseness, no swallowing difficulties, no hearing loss, no ear infection(s), no nose bleeds. Cardiovascular: normal blood pressure, no chest pain, regular heartbeat, no heart murmur. Respiratory: no shortness of breath, no cough, no asthma, no wheezing. Gastrointestinal: no nausea, no vomiting, no diarrhea, no constipation, no blood in stool, no change in bowel habits, no abdominal pain, no hepatitis. Genitourinary: no kidney stones, no urine infection, no dysuria. Musculoskeletal: moderate pain, no weakness. Skin: no changing moles, no rash, yes skin lumps. Neurologic: no seizures, no epilepsy, no headache. Psychiatric: no emotional or psychiatric problem. Heme/Lymph: no bleeding problems, no anemia, no blood clots, no transfusions. Allergy/Immunologic: no swollen lymph nodes/glands, no IV drug abuse. Other: Additional ROS info: Except as noted in the above Review of Systems and in the History of Present Illness, all other systems have been reviewed and are negative or noncontributory. Physical Exam skin: 2 cm sebaceous cyst left axilla Procedure patient brought to the procedure room, placed in the supine position; area prepped and draped; area anesthetized with 1% lidocaine; lesion excised down to subcutaneous fat; total length 2.5 cm; closed with interrupted 4-0 nylon sutures; tolerated well; ebl<3 ml. Assessment/Plan 1. Infected sebaceous cyst (L72.3: Sebaceous cyst) Follow-up No qualifying data available Problem List/Past Medical History Ongoing Arteriosclerotic heart disease Back pain, thoracic Benign prostatic hyperplasia Cervicalgia COPD mixed type DJD (degenerative joint disease) Dysphagia Furuncle of left axilla Hearing loss Hyperlipidemia Hypothyroid Infected sebaceous cyst Ischemic cardiomyopathy Lupus arthritis Paroxysmal SVT (supraventricular tachycardia) Spondylosis, lumbosacral Trigger finger, left Historical Acute myocardial infarction Procedure/Surgical History Colonoscopy (03/24/2016), EGD (esophagogastroduodeno scopy) gastric outlet reduction (03/24/2016), Appendectomy, Arthroscopy of knee, Heart procedure, I and D, Inguinal hernia, Tonsillectomy. Medications aspirin 81 mg Chew Tab, 81 mg= 1 tab(s), Oral, Daily Cipro 500 mg Tab, 500 mg= 1 tab(s), Oral, q12hr doxycycline monohydrate 100 mg oral tablet, 100 mg= 1 tab(s), Oral, BID Glucosamine Chondroitin, Oral, Daily levothyroxine 112 mcg (0.112 mg) oral capsule, 112 mcg= 1 cap(s), Oral, Daily Multi Vitamin+ pantoprazole 40 mg Oral EC Tab, 40 mg= 1 tab(s), Oral, Daily simvastatin 40 mg Tab, 40 mg= 1 tab(s), Oral, Once a day (at bedtime) Symbicort 160/4.5 inhalation aerosol with adapter, 2 puff(s), Inhalation, BID Ultram 50 mg Tab, 50 mg= 1 tab(s), Oral, q6hr, PRN Allergies No Known Allergies Social History Substance Abuse - Denies Substance Abuse, 10/10/2020 Tobacco Former smoker, quit more than 30 days ago Tobacco Use:. Never Smokeless Tobacco Use:. Cigarettes, 10/10/2020 Family History Family history is negative [facility] Comment on above: Result Comment: Elec tronically Signed By: QING LAYTON, Wolf Rao\Date and Time Signed: 10/16/20 09:17 EDT Ambulatory Clinical Summaryo n 10-10-2020 Ambulatory Clinical Summary {[id number]}CD:[id number] [facility] Facesheeton 10-10-2020 Facesheet [id number] 0CD:127 [facility] Insurance Correspondence Off iceon 10-10-2020 Insurance Correspondence Office [id number]:127 [facility] Consultation Noteon 10-09-19 Consultation Note [id number] 0CD:127 [facility] Encounters Encounter Date Encounter Type Care Provider Facility Start: 08-12-2022 End: 08-13-[address] JELLY KAUR Facility:[facility] Start: 04-12-[address]UR [facility]y:[facility] Start: 03-13-2022 End: 03-13-[address] AIDA STACK . Facility:[facility] Start: 03-11-2022 End: 03-12-[address] DOCTOR SEYMOUR Facility:[facility] Start: 10-28-2021 End: 10-29-[address] JELLY KAUR Facility:[facility] Payers Date Payer Category Payer Medicare [id number] 1958 Private Health Insurance CLI [id number] Self-pay 1935 Unknown [id number] 1935 Unknown [id number] [id number] 1936 Unknown [id number] [id number] 1936 Unknown [id number] [id number] [id number] 1936 Unknown [id number] [id number] Clinical Note 10-10-2020 Note Date & Type Note Facility 10-10-2020 Note HPI Staff patient here from referral from Dr Stack for 7 day hx Lt axilla Furuncle pt said it opened and started draining Tuesday has been on antibiotics since Tuesday History of Present Illness 85 yo male with h/o CAD, COPD referred for draining cyst left axilla; present for many years; became sore and inflamed; had spontaneous drainage 3 days ago, on Cipro and Doxycycline for past 4 days. no fevers; pain has improved; on baby asa, no NSAIDs; Review of Systems ROS - Provider Constitutional: no fever, no sweats, no weight loss. Eyes: no glasses, no blurred vision, no visual loss. ENMT: no dentures, no hoarseness, no swallowing difficulties, no hearing loss, no ear infection(s), no nose bleeds. Cardiovascular: normal blood pressure, no chest pain, regular heartbeat, no heart murmur. Respiratory: no shortness of breath, no cough, no asthma, no wheezing. Gastrointestinal: no nausea, no vomiting, no diarrhea, no constipation, no blood in stool, no change in bowel habits, no abdominal pain, no hepatitis. Genitourinary: no kidney stones, no urine infection, no dysuria. Musculoskeletal: no pain, no weakness. Skin: no changing moles, no rash, yes skin lumps. Neurologic: no seizures, no epilepsy, no headache. Psychiatric: no emotional or psychiatric problem. Heme/Lymph: no bleeding problems, no anemia, no blood clots, no transfusions. Allergy/Immunologic: no swollen lymph nodes/glands, no IV drug abuse. Other: Additional ROS info: Except as noted in the above Review of Systems and in the History of Present Illness, all other systems have been reviewed and are negative or noncontributory. Physical Exam Vitals & Measurements T: 36 ?C (Oral) BP: 122/72 HT: 177 cm HT: 177.0 cm WT: 76.3 kg WT: 76.3 kg BMI: 24.35 HEENT: normal conjunctiva, sclera clear, no scleral icterus, EOM intact, PERRLA, oral mucosa moist without lesions. Neck: trachea midline, no mass, symmetric, no thyromegaly or nodules, no adenopathy Respiratory: lungs CTA, respirations non labored. Cardiovascular: regular rate and rhythm, no murmur, no pedal edema or varicosities. Gastrointestinal: soft, non distended, no tenderness, no masses, no palpable hernias, diastasis recti no, no hepatosplenomegaly; normal bs Lymphatic: no cervical adenopathy, no axillary adenopathy, Musculoskeletal: normal gait, digits and nails without infection, nodes, cyanosis, clubbing. Skin: no rashes, no lesions, no ulcers, 2 cm sebaceous cyst left axilla with 5 mm ulcerated area, no drainage or fluctuance, no cellulitis. Psychiatric/Neuro: oriented to time, place, person, judgement normal, affect appropriate for age, insight intact, no focal deficits. Tests: , review of old records completed, Discussed surgical options, risks, and possible complications with patient. Assessment/Plan 1. Infected sebaceous cyst (L72.3: Sebaceous cyst) complete course of antibiotics; schedule for excisional biopsy under local anesthesia in the office next week; call sooner if problems/questions. Follow-up No qualifying data available Problem List/Past Medical History Ongoing Arteriosclerotic heart disease Back pain, thoracic Benign prostatic hyperplasia Cervicalgia COPD mixed type DJD (degenerative joint disease) Dysphagia Furuncle of left axilla Hearing loss Hyperlipidemia Hypothyroid Infected sebaceous cyst Ischemic cardiomyopathy Lupus arthritis Paroxysmal SVT (supraventricular tachycardia) Spondylosis, lumbosacral Trigger finger, left Historical Acute myocardial infarction Procedure/Surgical History Colonoscopy (03/24/2016), EGD (esophagogastroduodenoscopy) gastric outlet reduction (03/24/2016), Appendectomy, Arthroscopy of knee, Heart procedure, I and D, Inguinal hernia, Tonsillectomy. Medications aspirin 81 mg Chew Tab, 81 mg= 1 tab(s), Oral, Daily Cipro 500 mg Tab, 500 mg= 1 tab(s), Oral, q12hr doxycycline monohydrate 100 mg oral tablet, 100 mg= 1 tab(s), Oral, BID Glucosamine Chondroitin, Oral, Daily levothyroxine 112 mcg (0.112 mg) oral capsule, 112 mcg= 1 cap(s), Oral, Daily Multi Vitamin+ pantoprazole 40 mg Oral EC Tab, 40 mg= 1 tab(s), Oral, Daily simvastatin 40 mg Tab, 40 mg= 1 tab(s), Oral, Once a day (at bedtime) Symbicort 160/4.5 inhalation aerosol with adapter, 2 puff(s), Inhalation, BID Ultram 50 mg Tab, 50 mg= 1 tab(s), Oral, q6hr, PRN Allergies No Known Allergies Social History Substance Abuse - Denies Substance Abuse, 10/10/2020 Tobacco Former smoker, quit more than 30 days ago Tobacco Use:. Never Smokeless Tobacco Use:. Cigarettes, 10/10/2020 Family History Family history is negative [facility] Comment on above: Result Comment: Elec tronically Signed By: QING LAYTON, Wolf Schuster\nicholas\Date and Time Signed: 10/10/20 09:30 EDT Summary Purpose Family History No Family History Records FoundNo Family History Records Found Advance Directives No Advanced Directives Records FoundNo Advanced Directives Records Found Additional Source Comments (unrecognized sect ion and content) No Status Records FoundNo Status Records Found INFORMATION SOURCE (unrecogn ized section and content) DATE CREATED AUTHOR 10/29/2020 [facility] DATE CREATED AUTHOR AUTHOR'S ORGANIZ ATION 08/19/[address] [facility] FOR RECORDS PERTAINING TO PATIENTS WHO ARE OR HAVE BEEN ENROLLED IN A CHEMICAL DEPENDENCY/SUBSTANCEABUSE PROGRAM, SOME INFORMATION MAY BE OMITTED. This clinical summary was aggregated from multiple sources. Caution should be exercised in using it in the provision of clinical care. This summary normalizes information from multiple sources, and as a consequence, information in this document may materially change the coding, format and clinical context of patient data. In addition, data may be omitted in some cases. CLINICAL DECISIONS SHOULD BE BASED ON THE PRIMARY CLINICAL RECORDS. [facility] [employer] [facility]. provides no warranty or guarantee of the accuracy or completeness of information in this document.
--- NOTE | 2023-07-10 13:54 | ECG_ITS ---
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
--- NOTE | 2023-07-10 13:59 | XR_ITS ---
[address] [address] Patient Name: BART FLETCHER MRN: [id number] date: 1935 Sex: M Assigned Patient Location: ER Current Patient Location: ER Accession/Order Number: [id number] Exam Date: 07/10/2023 14:08 Report Date: 07/10/2023 14:38 At the request of: KURT PHELAN Procedure: XR chest 1V EXAM: XR chest 1V INDICATION: sob. COMPARISON: Chest radiograph 06/11/2019. TECHNIQUE: Single frontal view of the chest FINDINGS: Post CABG. Normal cardiomediastinal contours. No acute infiltrative process. No pleural effusion or pneumothorax. No acute osseous abnormality. XR/XR chest 1V IMPRESSION: No acute cardiopulmonary process. Electronically authenticated by: LATRICE FULTON Date: 07/10/2023 14:38
[2023-07-10 14:13] LABS: Hematocrit 45.3 % (42.0-54.0); Hemoglobin 14.8 g/dL (14.0-18.0); Mean Corpuscular HGB Conc 32.7 g/dL (29.9-35.2); Mean Corpuscular Hemoglobin 32.5 pg (25.9-34.0); Mean Corpuscular Volume 99.6 fL (80.0-94.0); Mean Platelet Volume 10.5 fL (9.5-13.5); Platelet Count 147 10^3/uL (150-450); Red Blood Count 4.55 10^6/uL (4.70-6.10); Red Cell Distribution Width 13.9 % (11.0-15.0); White Blood Count 7.6 10^3/uL (4.0-11.0)
[2023-07-10] MEDS: IPRATROPIUM/ALBUTEROL SULFATE 3 ML AMPUL.NEB IH ×3 (14:14→20:21)
[2023-07-10] MEDS: METHYLPREDNISOLONE SOD SUCC PF 125 MG/2 ML VIAL IVP (14:16)
[2023-07-10 14:25] LABS: Influenza Virus A Antigen Positive; Influenza Virus B Antigen Negative; Internal Control Within Normal Limits; SARS-CoV-2 Ag NEGATIVE (NEGATIVE)
[2023-07-10 14:34] LABS: Lymphocytes Absolute Manual 1.52 10^3/uL (1.20-3.80); Macrocytosis 1+; Monocytes Absolute Manual 0.83 10^3/uL (0.30-0.80); Segmented Neut Absolute Manual 5.24 10^3/uL (1.4-6.5)
[2023-07-10 14:40] LABS: Alanine Aminotransferase 25 U/L (16-63); Albumin Globulin Ratio 1.1; Albumin Level 3.8 g/dL (3.4-5.0); Alkaline Phosphatase 72 U/L (46-116); Anion Gap 14.1; Aspartate Amino Transferase 21 U/L (15-37); BUN Creatinine Ratio 14.4; Bilirubin Total 1.1 mg/dL (0.2-1.0); Calcium 8.8 mg/dL (8.5-10.1); Carbon Dioxide 25.1 mmol/L (21.0-32.0); Chloride 105 mmol/L (98-107); Estimated GFR (African America 59 (>=60); Estimated GFR (Non-African Ame 48 (>=60); Globulin 3.6 g/dL; Glucose 103 mg/dL (74-106); Potassium 4.2 mmol/L (3.5-5.1); Sodium 140 mmol/L (136-145); Total Protein 7.4 g/dL (6.4-8.2)
--- NOTE | 2023-07-10 15:04 | ED.SOB1 ---
HPI - SOB/Dyspnea General Chief Complaint: Shortness of Breath/Dyspnea Stated Complaint: CHEST CONGESTION AND WEAKNESS Time Seen by Provider: 07/10/23 13:56 Source: patient Mode of arrival: Wheelchair History of Present Illness HPI Narrative: The patient is a 88 years old who lives by himself coming to the ER with a 24 hours history of shortness of breath at rest. 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 and he is exposed mostly to multiple people Also have a cough productive he quit smoking cigarettes long time ago No chest pain no nausea no vomiting Related Data Home Medications ?Medication ?Instructions ?Recorded ?Confirmed doxepin 25 mg capsule 50 mg PO .QHS insomnia 07/10/23 07/10/23 levothyroxine 112 mcg tablet 112 mcg PO .ACB 07/10/23 07/10/23 pantoprazole 40 mg tablet,delayed 40 mg PO .QD 07/10/23 07/10/23 release prednisone 5 mg tablet 5 mg PO .QOD 07/10/23 07/10/23 tramadol 50 mg tablet 50 mg PO BID PRN pain 07/11/23 07/11/23 Previous Rx's ?Medication ?Instructions ?Recorded levofloxacin 500 mg tablet 500 mg PO DAILY 7 days #7 tabs 07/13/23 prednisone 10 mg tablet 40 mg (4 x 10 mg) PO DAILY #32 tabs 07/13/23 tramadol 50 mg tablet 50 mg PO BID PRN pain #60 tabs 07/13/23 Allergies Allergy/AdvReac Type Severity Reaction Status Date / Time No Known Drug Allergies Allergy Verified 07/10/23 13:25 Review of Systems ROS Status of ROS 10 or more systems reviewed and unremarkable except as noted in history and below [facility] Medical History (Updated 07/17/23 @ 00:00 by ) Low back pain ?M54.50 - Low back pain, unspecified (ICD-10) Asthma exacerbation in COPD ?J44.1 - Chronic obstructive pulmonary disease with (acute) exacerbation (ICD-10) ?J45.901 - Unspecified asthma with (acute) exacerbation (ICD-10) Influenza A ?J10.1 - Influenza due to other identified influenza virus with other respiratory manifestations (ICD-10) Heart attack ?I21.9 - Acute myocardial infarction, unspecified (ICD-10) Coronary atherosclerosis of bypass graft ?I25.810 - Atherosclerosis of coronary artery bypass graft(s) without angina pectoris (ICD-10) Vertigo ?R42 - Dizziness and giddiness (ICD-10) Surgical History (Updated 07/10/23 @ 18:11 by Griselda Levi) H/O inguinal hernia repair ?Z98.890 - Other specified postprocedural states (ICD-10) ?Z87.19 - Personal history of other diseases of the digestive system (ICD-10) History of left knee replacement ?Z96.652 - Presence of left artificial knee joint (ICD-10) History of appendectomy ?Z90.49 - Acquired absence of other specified parts of digestive tract (ICD-10) Family History (Updated 07/10/23 @ 18:12 by Griselda Levi) Father Family history of cancer Social History (Updated 07/10/23 @ 18:13 by Griselda Levi) Within the past year, how often did you have a drink containing alcohol: never Score interpretation: A score less than 4 is consistent with normal alcohol consumption. Smoking status: Former smoker Non-prescribed substance use: denies use Highest level of school completed/degree received: Associate degree: occupational, technical, vocational program Exam Narrative Exam Narrative: Nurses notes and vital signs reviewed and patient is not hypoxic. General: Well-appearing and in no apparent distress. Skin: Warm, dry, no pallor noted. No rash. Head: Normocephalic, atraumatic. Neck: Supple, non-tender. Eye: Pupils are equal, round and EOMI. No scleral icterus. Ears, Nose, Mouth, and Throat: TM are clear, no nasal mucosal hypertrophy. Oral mucosa is moist, no posterior oropharynx erythema, uvula is mid-line Cardiovascular: Regular Rate and Rhythm without murmur, gallop or rub. Respiratory: The patient is tachypneic and the wheezing bilaterally expiratory wheezes can be heard in both lung [place], Back: No midline thoracic or lumbar vertebral tenderness. No CVA tenderness Musculoskeletal: normal ROM, no calf or popliteal tenderness, no lower extremity edema/swelling GI: Abdomen is soft, non-distended. Normal bowel sounds. No masses appreciated. No tenderness to palpation. No rebound, guarding, or rigidity noted. Neurological: A&O x4. No cranial nerve dysfunction observed. No truncal ataxia. Moves all extremities. Sensation intact. Psychiatric: Cooperative and interactive. Normal mood and affect. Constitutional Vital Signs, click to edit/add: Last Vital Signs Temp 97.6 F 07/13/23 11:31 Pulse 68 07/13/23 11:31 Resp 20 07/13/23 11:31 BP 133/71 07/13/23 11:31 Pulse Ox 91 L 07/13/23 11:31 O2 Del Method Room Air 07/13/23 11:31 O2 Flow Rate 1 07/13/23 04:00 Course Course Hospital Course: Patient presented to the emergency room with increasing cough and shortness of breath. Found to have influenza. Also acute exacerbation of COPD secondary to pneumonia. Patient was treated with IV antibiotics, aerosol treatments, steroids, Tamiflu. Very slow to improve. We did try IPV treatments yesterday which did seem to improve his oxygen saturation. This morning has been able to be weaned off of his supplemental oxygen. He is ambulating still with significant weakness in his bilateral lower extremities secondary to the overall illness and deconditioning. Patient in need of rehab. Patient stable for discharge to rehab today. Medications see list. I will follow-up with patient in the office after rehab. Vital Signs Vital signs: Vital Signs Temperature 98.1 F 07/10/23 13:21 Pulse Rate 109 H 07/10/23 13:21 Respiratory Rate 26 H 07/10/23 13:21 Blood Pressure 99/71 07/10/23 13:21 Pulse Oximetry 92 L 07/10/23 13:21 Temperature 97.6 F 07/13/23 11:31 Pulse Rate 68 07/13/23 11:31 Respiratory Rate 20 07/13/23 11:31 Blood Pressure 133/71 07/13/23 11:31 Pulse Oximetry 91 L 07/13/23 11:31 Oxygen Delivery Method Room Air 07/13/23 11:31 Oxygen Delivery Flow Rate 1 07/13/23 04:00 MDM - SOB/Dyspnea MDM Narrative Medical decision making narrative: The patient chest x-ray showed no acute pathology CBC and chemistry shows only elevated BUN Flu a is positive The patient is still wheezing after initial treatment as well as still tachypneic he will be admitted for further evaluation his pulse ox is 92% at room air Patient case discussed with Dr. Stack and he agreed with above-mentioned plan Lab Data Labs: Lab Results 03/31/24 Range/Units 14:00 WBC 7.6 (4.0-11.0) 10^3/uL RBC 4.55 L (4.70-6.10) 10^6/uL Hgb 14.8 (14.0-18.0) g/dL Hct 45.3 (42.0-54.0) % MCV 99.6 H (80.0-94.0) fL MCH 32.5 (25.9-34.0) pg MCHC 32.7 (29.9-35.2) g/dL RDW 13.9 (11.0-15.0) % Plt Count 147 L (150-450) 10^3/uL MPV 10.5 (9.5-13.5) fL Seg Neuts % (Manual) 69.0 Lymphocytes % (Manual) 20.0 L (20.5-60.0) % Monocytes % (Manual) 11.0 (1.7-12.0) % Eosinophils % (Manual) 0.0 L (0.9-7.0) % Basophils % (Manual) 0.0 L (0.2-2.0) % Neutrophils # (Manual) 5.24 (1.4-6.5) 10^3/uL Lymphocytes # (Manual) 1.52 (1.20-3.80) 10^3/uL Monocytes # (Manual) 0.83 H (0.30-0.80) 10^3/uL Eosinophils # (Manual) 0.00 (0.00-0.70) 10^3/uL Basophils # (Manual) 0.00 (0.00-0.10) 10^3/uL Macrocytosis 1+ Sodium 140 (136-145) mmol/L Potassium 4.2 (3.5-5.1) mmol/L Chloride 105 (98-107) mmol/L Carbon Dioxide 25.1 (21.0-32.0) mmol/L Anion Gap 14.1 BUN 20.0 H (7.0-18.0) mg/dL Creatinine 1.39 H (0.70-1.30) mg/dL Est GFR ( Amer) 59 L (>=60) Est GFR (Non-Af Amer) 48 L (>=60) BUN/Creatinine Ratio 14.4 Glucose 103 (74-106) mg/dL Lactate 1.6 (0.4-2.0) mmol/L Calcium 8.8 (8.5-10.1) mg/dL Magnesium 2.1 (1.8-2.4) mg/dL Total Bilirubin 1.1 H (0.2-1.0) mg/dL AST 21 (15-37) U/L ALT 25 (16-63) U/L Alkaline Phosphatase 72 (46-116) U/L Troponin I High Sens 13.0 (4.0-76.1) pg/mL NT-Pro-B Natriuret Pep 567.0 (<=1800.0) pg/mL Total Protein 7.4 (6.4-8.2) g/dL Albumin 3.8 (3.4-5.0) g/dL Globulin 3.6 g/dL Albumin/Globulin Ratio 1.1 Influenza Type A Ag Positive A Influenza Type B Ag Negative SARS-CoV-2 Ag (CV2AG) Negative (NEGATIVE) Discharge Plan Discharge Chief Complaint: Shortness of Breath/Dyspnea Clinical Impression: Influenza A, Asthma exacerbation in COPD Patient Disposition: Admitted as Observation Time of Disposition Decision: 15:07 Condition: Good Discharge Date/Time: 07/10/23 17:22
--- NOTE | 2023-07-10 15:19 | P.HP_ITS ---
HPI H&P: HPI History of Present Illness Chief complaint: CHEST CONGESTION AND WEAKNESS Narrative: Patient with a 2-day history of increasing cough and shortness of breath. In ER found to be influenza A positive however significant hypoxia with O2 saturation of 91% on 1.5 L, he does not wear oxygen at home. Checking room air saturation is pending, When I saw patient in the emergency room he still some mild conversational dyspnea. Persistent cough throughout the evaluation. Opioid HPI Opioid Management Most Recent Opioid Data: No Data to Display Review of Systems ROS Status of ROS 10 or more systems reviewed and unremark able except as noted in history and below Meds Home Medications and Allergies Allergies Allergy/AdvReac Type Severity Reaction Status Date / Time No Known Drug Allergies Allergy Verified 07/10/23 13:25 Exam Constitutional Vital Signs, click to edit/add: Last Vital Signs Temp 98.1 F 07/10/23 13:21 Pulse 105 H 07/10/23 14:15 Resp 20 07/10/23 14:15 BP 99/71 07/10/23 13:21 Pulse Ox 92 L 07/10/23 13:21 O2 Del Method Nasal Cannula 07/10/23 13:29 O2 Flow Rate 1.5 07/10/23 13:29 Documenting provider has reviewed patient's vital signs: yes Common normals: no apparent distress Chest Common normals: inspection of chest normal Respiratory Common normals: abnormal respiratory effort (MIld conversational dyspnea) Auscultation: rhonchi, wheezes and egophony right lower Cardio Common normals: regular rhythm; irregular rate Rate: tachycardic GI Common normals: Normal to inspection, nondistended, normoactive bowel sounds present, soft to palpation, non-tender and no masses Extremity Common normals: normal to inspection, full ROM and no clubbing, cyanosis or edema Results Labs Labs: Short CBC 07/10/23 Range/Units 14:00 WBC 7.6 (4.0-11.0) 10^3/uL Hgb 14.8 (14.0-18.0) g/dL Hct 45.3 (42.0-54.0) % Plt Count 147 L (150-450) 10^3/uL BMP 07/10/23 14:00 Sodium 140 Potassium 4.2 Chloride 105 Carbon Dioxide 25.1 BUN 20.0 H Creatinine 1.39 H Glucose 103 Calcium 8.8 Liver Function 07/10/23 Range/Units 14:00 Total Bilirubin 1.1 H (0.2-1.0) mg/dL AST 21 (15-37) U/L ALT 25 (16-63) U/L Alkaline Phosphatase 72 (46-116) U/L Albumin 3.8 (3.4-5.0) g/dL Assessment and Plan Assessment and Plan (1) Asthma exacerbation in COPD: (2) Influenza A: Plan Sinus tachycardia, respiratory distress, hypotension, blood cell count with left shift, consistent with bacterial process, relative hypoxia with O2 saturation of 91% on 1.5 L, patient does not wear supplemental oxygen at home, this is secondary to influenza A and likely right lower lobe pneumonia on exam causing acute exacerbation of COPD-aerosols, steroids, antibiotics, consider repeat chest x-ray. Nothing on x-ray may be consistent with mild dehydration. Acute kidney injury with creatinine 139% above baseline. Normal creatinine is 1.03 current creatinine 1.39 -IV fluids, gentle to prevent fluid overload Thrombocytopenia-likely secondary to above-monitor daily Inpatient criteria: Patient with likely right lower lobe pneumonia secondary to influenza A, complicated by acute exacerbation of COPD, with hypoxia, unable to improve patient over 2 midnight course, medically necessary treatment will span [address] patient to inpatient status
--- NOTE | 2023-07-10 15:24 | PC.NURSE ---
pt O2 87% Pt on O2 per NC
[2023-07-10] MEDS: OSELTAMIVIR PHOSPHATE 75 MG CAPSULE PO ×2 (15:40→21:28)
[2023-07-10] MEDS: 0.9 % SODIUM CHLORIDE 1,000 ML 500 ML IV (15:40)
[2023-07-10 16:01] LABS: Magnesium 2.1 mg/dL (1.8-2.4)
[2023-07-10 16:04] LABS: Lactate/Lactic Acid 1.6 mmol/L (0.4-2.0)
[2023-07-10] MEDS: CEFTRIAXONE 1,000 MG in 0.9 % SODIUM CHLORIDE 50 ML 100 MG IV (16:08)
--- OUTSIDE RECORDS SUMMARY | 2023-07-10 17:30 | XMS_ITS | CCD ---
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 Jasbir Ocampo ATYPICAL LYMPH % Normal [facility] Comment on above: Performed By: #### C BCKELLY #### [facility] [address] [place] [address] Dr. Jasbir Ocampo BAND # 0.0 103/ul Normal 0.0-0.3 [facility] Comment on above: Performed By: #### C BCKELLY #### [facility] [address] [place] [address] Dr. Jasbir Ocampo BAND % 0 % Normal 0-5 [facility] Comment on above: Performed By: #### C RUSS #### [facility] [address] [place] [address] Dr. Jasbir Ocampo BASOM # 0.00 103/ul Normal 0.00-0.10 [facility] Comment on above: Performed By: #### C RUSS #### [facility] [address] [place] [address] Dr. Jasbir Ocampo BASOM % 0.0 % Critically low 0.2-2.0 [facility] Comment on above: Performed By: #### C RUSS #### [facility] [address] [place] [address] Dr. Jasbir Ocampo BLAST # Normal [facility] Comment on above: Performed By: #### C RUSS #### [facility] [address] [place] [address] Dr. Jasbir Ocampo BLAST % Normal [facility] Comment on above: Performed By: #### C RUSS #### [facility] [address] [place] [address] Dr. Jasbir Ocampo CORRECTED WBC Normal 4.0-11.0 [facility] Comment on above: Performed By: #### C RUSS #### [facility] [address] [place] [address] Dr. Jasbir Ocampo EOS # 0.05 103/ul Normal 0.00-0.70 [facility] Comment on above: Performed By: #### C RUSS #### [facility] [address] [place] [address] Dr. Jasbir Ocampo EOS% 1.0 % Normal 0.9-7.0 [facility] Comment on above: Performed By: #### C RUSS #### [facility] [address] [address] [address] Jasbir Ocampo HCT 42.5 % Normal 42.0-54.0 [facility] Comment on above: Performed By: #### C RUSS #### [facility] [address] [address] [address] Jasbir Ocampo HGB 14.2 g/dl Normal 14.0-18.0 [facility] Comment on above: Performed By: #### C RUSS #### [facility] [address] [address] [address] Jasbir Ocampo LYMPHM # 2.02 103/ul Normal 1.20-3.80 [facility] Comment on above: Performed By: #### C RUSS #### [facility] [address] [place] [address] Dr. Jasbir Ocampo LYMPHM% 43.0 % Normal 20.5-60.0 [facility] Comment on above: Performed By: #### C RUSS #### [facility] [address] [place] [address] Dr. Jasbir Ocampo MCH 32.1 pg Normal 25.9-34.0 [facility] Comment on above: Performed By: #### C RUSS #### [facility] [address] [place] [address] Dr. Jasbir Ocampo MCHC 33.4 g/dl Normal 29.9-35.2 [facility] Comment on above: Performed By: #### C RUSS #### [facility] [address] [place] [address] Dr. Jasbir Ocampo MCV 96.2 fL Critically high 80.0-94.0 [facility] Comment on above: Performed By: #### C RUSS #### [facility] [address] [place] [address] Dr. Jasbir Ocampo METAMYELOCYTE # Normal [facility] Comment on above: Performed By: #### C RUSS #### [facility] [address] [place] [address] Dr. Jasbir Ocampo METAMYELOCYTE % Normal [facility] Comment on above: Performed By: #### C BCMAN #### [facility] [address] [address] [address] Jasbir Ocampo MONOM# 0.09 103/ul Critically low 0.30-0.80 [facility] Comment on above: Performed By: #### C BCMAN #### [facility] [address] [address] [address] Jasbir Ocampo MONOM% 2.0 % Normal 1.7-12.0 [facility] Comment on above: Performed By: #### C BCMAN #### [facility] [address] [address] [address] Jasbir Ocampo MPV 9.8 fL Normal 9.5-13.5 [facility] Comment on above: Performed By: #### C RUSS #### [facility] [address] [place] [address] Dr. Jasbir Ocampo MYELOCYTE # Normal [facility] Comment on above: Performed By: #### C BCKELLY #### [facility] [address] [address] [address] Jasbir Ocampo MYELOCYTE % Normal [facility] Comment on above: Performed By: #### C BCKELLY #### [facility] [address] [place] [address] Dr. Jasbir Ocampo NRBC Normal [facility] Comment on above: Performed By: #### C RUSS #### [facility] [address] [place] [address] Dr. Jasbir Ocampo PLT 171 103/ul Normal 150-450 [facility] Comment on above: Performed By: #### C BCMAN #### [facility] [address] [address] [address] Jasbir Ocampo RBC 4.42 106/ul Critically low 4.70-6.10 [facility] Comment on above: Performed By: #### C BCKELLY #### [facility] [address] [place] [address] Dr. Jasbir Ocampo RDW 13.4 % Normal 11.0-15.0 [facility] Comment on above: Performed By: #### C BCMAN #### [facility] [address] [address] [address] Jasbir Ocampo SEG # 2.54 103/ul Normal 1.40-6.50 [facility] Comment on above: Performed By: #### C BCMAN #### [facility] [address] [place] [address] Dr. Jasbir Ocampo SEG % 54.0 % Normal 43.0-75.0 [facility] Comment on above: Performed By: #### C BCMAN #### [facility] [address] [place] [address] Dr. Jasbir Ocampo WBC 4.7 103/ul Normal 4.0-11.0 [facility] Comment on above: Performed By: #### C RUSS #### [facility] [address] [place] [address] Dr. Jasbir Ocampo PROF 14(COMP METB)on 023 Albumin [Mass/Vol] 3.5 g/dL Normal 3.4-5.0 [facility] Comment on above: Performed By: #### C MP, CK #### [facility] [address] [place] [address] Dr. Jasbir Ocampo Albumin/Globulin [Mass ratio] 0.9 {ratio} Normal [facility] Comment on above: Performed By: #### C MP, CK #### [facility] [address] [place] [address] Dr. Jasbir Ocampo ALP [Catalytic activity/Vol] 71 U/L Normal 46-116 [facility] Comment on above: Performed By: #### C MP, CK #### [facility] [address] [place] [address] Dr. Jasbir Ocampo ALT [Catalytic activity/Vol] 32 U/L Normal 16-63 [facility] Comment on above: Performed By: #### C MP, CK #### [facility] [address] [place] [address] Dr. Jasbir Ocampo Anion gap [Moles/Vol] 11.2 mmol/L Normal [facility] Comment on above: Performed By: #### C MP, CK #### [facility] [address] [address] [address] Jasbir Ocampo AST [Catalytic activity/Vol] 21 U/L Normal 15-37 [facility] Comment on above: Performed By: #### C MP, CK #### [facility] [address] [address] [address] Jasbir Ocampo Bilirubin [Mass/Vol] 0.6 mg/dL Normal 0.2-1.0 [facility] Comment on above: Performed By: #### C MP, CK #### [facility] [address] [address] [address] Jasbir Ocampo Calcium [Mass/Vol] 8.7 mg/dL Normal 8.5-10.1 [facility] Comment on above: Performed By: #### C MP, CK #### [facility] [address] [address] [address] Jasbir Ocampo Chloride [Moles/Vol] 104 mmol/L Normal 98-107 [facility] Comment on above: Performed By: #### C MP, CK #### [facility] [address] [address] [address] Jasbir Ocampo CO2 [Moles/Vol] 26.9 mmol/L Normal 21.0-32.0 [facility] Comment on above: Performed By: #### C MP, CK #### [facility] [address] [address] [address] Jasbir Ocampo Creatinine [Mass/Vol] 1.21 mg/dL Normal 0.70-1.30 [facility] Comment on above: Performed By: #### C MP, CK #### [facility] [address] [address] [address] Jasbir Ocampo EGFR-AF DJIBOUTIAN >60 Normal >=60 [facility] Comment on above: Performed By: #### C MP, CK #### [facility] [address] [address] [address] Jasbir Ocampo EGFR-NON AF DJIBOUTIAN 57 mL/min/1.73m2 Critically low >=60 [facility] Comment on above: Performed By: #### C MP, CK #### [facility] [address] [address] [address] Jasbir Ocampo Globulin (S) [Mass/Vol] 3.7 g/dL Normal [facility] Comment on above: Performed By: #### C MP, CK #### [facility] [address] [address] [address] Jasbir Ocampo Glucose [Mass/Vol] 86 mg/dL Normal 74-106 [facility] Comment on above: Performed By: #### C MP, CK #### [facility] [address] [address] [address] Jasbir Ocampo Potassium [Moles/Vol] 4.1 mmol/L Normal 3.5-5.1 [facility] Comment on above: Performed By: #### C MP, CK #### [facility] [address] [address] [address] Jasbir Ocampo Protein [Mass/Vol] 7.2 g/dL Normal 6.4-8.2 [facility] Comment on above: Performed By: #### C MP, CK #### [facility] [address] [address] [address] Jasbir Ocampo Sodium [Moles/Vol] 138 mmol/L Normal 136-145 [facility] Comment on above: Performed By: #### C MP, CK #### [facility] [address] [address] [address] Jasbir Ocampo Urea nitrogen [Mass/Vol] 18.0 mg/dL Normal 7.0-18.0 [facility] Comment on above: Performed By: #### C MP, CK #### [facility] [address] [address] [address] Jasbir Ocampo Urea nitrogen/Creatinine [Mass ratio] 14.9 mg/mg Normal [facility] Comment on above: Performed By: #### C MP, CK #### [facility] [address] [address] [address] Jasbir Ocampo SED RATE [facility] 2022 SED RATE 13 mm/hr Normal <=20 [facility] Comment on above: Performed By: #### S EDR #### [facility] [address] [address] [address] Jasbir Ocampo XR KNEE RT 4V [...] CELESTE CREWS Date: 2022-03-13 11:27 Normal [facility] CBC AUTO DIFFon 03-11-2022 BASO # 0.0 103/ul Normal 0.0-0.1 [facility] Comment on above: Performed By: #### C BC #### [facility] [address] [place] [address] Dr. Jasbir Ocampo Basophils/100 WBC (Bld) 0.5 % Normal 0.2-2.0 [facility] Comment on above: Performed By: #### C BC #### [facility] [address] [place] [address] Dr. Jasbir Ocampo EO # 0.2 103/ul Normal 0.0-0.7 [facility] Comment on above: Performed By: #### C BC #### [facility] [address] [place] [address] Dr. Jasbir Ocampo Eosinophils/100 WBC (Bld) 2.8 % Normal 0.9-7.0 [facility] Comment on above: Performed By: #### C BC #### [facility] [address] [place] [address] Dr. Jasbir Ocampo Erythrocyte distribution width (RBC) [Ratio] 14.0 % Normal 11.0-15.0 [facility] Comment on above: Performed By: #### C BC #### [facility] [address] [address] [address] Jasbir Ocampo Hematocrit (Bld) [Volume fraction] 42.8 % Normal 42.0-54.0 [facility] Comment on above: Performed By: #### C BC #### [facility] [address] [place] [address] Dr. Jasbir Ocampo Hemoglobin (Bld) [Mass/Vol] 14.1 g/dL Normal 14.0-18.0 [facility] Comment on above: Performed By: #### C BC #### [facility] [address] [place] [address] Dr. Jasbir Ocampo IG # 0.04 10e3/ul Critically high 0.00-0.03 [facility] Comment on above: Performed By: #### C BC #### [facility] [address] [place] [address] Dr. Jasbir Ocampo IG % 0.7 % Critically high 0.0-0.5 [facility] Comment on above: Performed By: #### C BC #### [facility] [address] [place] [address] Dr. Jasbir Ocampo LYMPH # 2.5 103/ul Normal 1.2-3.8 [facility] Comment on above: Performed By: #### C BC #### [facility] [address] [place] [address] Dr. Jasbir Ocampo Lymphocytes/100 WBC (Bld) 44.1 % Normal 20.5-60.0 [facility] Comment on above: Performed By: #### C BC #### [facility] [address] [place] [address] Dr. Jasbir Ocampo MANUAL DIFF REQ NO Normal [facility] Comment on above: Performed By: #### C BC #### [facility] [address] [place] [address] Dr. Jasbir Ocampo MCH (RBC) [Entitic mass] 31.2 pg Normal 25.9-34.0 [facility] Comment on above: Performed By: #### C BC #### [facility] [address] [place] [address] Dr. Jasbir Ocampo MCHC (RBC) [Mass/Vol] 32.9 g/dL Normal 29.9-35.2 [facility] Comment on above: Performed By: #### C BC #### [facility] [address] [place] [address] Dr. Jasbir Ocampo MCV (RBC) [Entitic vol] 94.7 fL Critically high 80.0-94.0 [facility] Comment on above: Performed By: #### C BC #### [facility] [address] [place] [address] Dr. Jasbir Ocampo MONO # 0.5 103/ul Normal 0.3-0.8 [facility] Comment on above: Performed By: #### C BC #### [facility] [address] [place] [address] Dr. Jasbir Ocampo Monocytes/100 WBC (Bld) 7.8 % Normal 1.7-12.0 [facility] Comment on above: Performed By: #### C BC #### [facility] [address] [place] [address] Dr. Jasbir Ocampo NEUT # 2.5 103/ul Normal 1.4-6.5 [facility] Comment on above: Performed By: #### C BC #### [facility] [address] [place] [address] Dr. Jasbir Ocampo Neutrophils/100 WBC (Bld) 44.1 % Normal 43.0-75.0 [facility] Comment on above: Performed By: #### C BC #### [facility] [address] [place] [address] Dr. Jasbir Ocampo Platelet mean volume (Bld) [Entitic vol] 10.3 fL Normal 9.5-13.5 [facility] Comment on above: Performed By: #### C BC #### [facility] [address] [place] [address] Dr. Jasbir Ocampo PLT 238 103/ul Normal 150-450 [facility] Comment on above: Performed By: #### C BC #### [facility] [address] [place] [address] Dr. Jasbir Ocampo RBC 4.52 106/ul Critically low 4.70-6.10 [facility] Comment on above: Performed By: #### C BC #### [facility] [address] [place] [address] Dr. Jasbir Ocampo WBC 5.7 103/ul Normal 4.0-11.0 [facility] Comment on above: Performed By: #### C BC #### [facility] [address] [place] [address] Dr. Jasbir Ocampo CPKon 03-11-2022 CK [Catalytic activity/Vol] 130 U/L Normal 39-308 [facility] Comment on above: Performed By: #### C MP, CK #### [facility] [address] [place] [address] Dr. Jasbir Ocampo PROF 14(COMP METB)on 022 Albumin [Mass/Vol] 3.3 g/dL Critically low 3.4-5.0 [facility] Comment on above: Performed By: #### C MP, CK #### [facility] [address] [place] [address] Dr. Jasbir Ocampo Albumin/Globulin [Mass ratio] 0.8 {ratio} [facility] Comment on above: Performed By: #### C MP, CK #### [facility] [address] [place] [address] Dr. Jasbir Ocampo ALP [Catalytic activity/Vol] 74 U/L Normal 46-116 [facility] Comment on above: Performed By: #### C MP, CK #### [facility] [address] [place] [address] Dr. Jasbir Ocampo ALT [Catalytic activity/Vol] 22 U/L Normal 16-63 [facility] Comment on above: Performed By: #### C MP, CK #### [facility] [address] [place] [address] Dr. Jasbir Ocampo Anion gap [Moles/Vol] 11.5 mmol/L Normal [facility] Comment on above: Performed By: #### C MP, CK #### [facility] [address] [place] [address] Dr. Jasbir Ocampo AST [Catalytic activity/Vol] 20 U/L Normal 15-37 [facility] Comment on above: Performed By: #### C MP, CK #### [facility] [address] [place] [address] Dr. Jasbir Ocampo Bilirubin [Mass/Vol] 0.5 mg/dL Normal 0.2-1.0 [facility] Comment on above: Performed By: #### C MP, CK #### [facility] [address] [place] [address] Dr. Jasbir Ocampo Calcium [Mass/Vol] 8.8 mg/dL Normal 8.5-10.1 [facility] Comment on above: Performed By: #### C MP, CK #### [facility] [address] [place] [address] Dr. Jasbir Ocampo Chloride [Moles/Vol] 102 mmol/L Normal 98-107 [facility] Comment on above: Performed By: #### C MP, CK #### [facility] [address] [place] [address] Dr. Jasbir Ocampo CO2 [Moles/Vol] 27.5 mmol/L Normal 21.0-32.0 [facility] Comment on above: Performed By: #### C MP, CK #### [facility] [address] [place] [address] Dr. Jasbir Ocampo Creatinine [Mass/Vol] 0.99 mg/dL Normal 0.70-1.30 [facility] Comment on above: Performed By: #### C MP, CK #### [facility] [address] [place] [address] Dr. Jasbir Ocampo EGFR-AF DJIBOUTIAN >60 Normal >=60 [facility] Comment on above: Performed By: #### C MP, CK #### [facility] [address] [place] [address] Dr. Jasbir Ocampo EGFR-NON AF DJIBOUTIAN >60 Normal >=60 [facility] Comment on above: Performed By: #### C MP, CK #### [facility] [address] [place] [address] Dr. Jasbir Ocampo Globulin (S) [Mass/Vol] 4.1 g/dL Normal [facility] Comment on above: Performed By: #### C MP, CK #### [facility] [address] [place] [address] Dr. Jasbir Ocampo Glucose [Mass/Vol] 90 mg/dL Normal 74-106 [facility] Comment on above: Performed By: #### C MP, CK #### [facility] [address] [address] [address] Jasbir Ocampo Potassium [Moles/Vol] 4.0 mmol/L Normal 3.5-5.1 [facility] Comment on above: Performed By: #### C MP, CK #### [facility] [address] [place] [address] Dr. Jasbir Ocampo Protein [Mass/Vol] 7.4 g/dL Normal 6.4-8.2 [facility] Comment on above: Performed By: #### C MP, CK #### [facility] [address] [place] [address] Dr. Jasbir Ocampo Sodium [Moles/Vol] 137 mmol/L Normal 136-145 [facility] Comment on above: Performed By: #### C MP, CK #### [facility] [address] [place] [address] Dr. Jasbir Ocampo Urea nitrogen [Mass/Vol] 21.0 mg/dL Critically high 7.0-18.0 [facility] Comment on above: Performed By: #### C MP, CK #### [facility] [address] [place] [address] Dr. Jasbir Ocampo Urea nitrogen/Creatinine [Mass ratio] 21.2 mg/mg Normal [facility] Comment on above: Performed By: #### C MP, CK #### [facility] [address] [place] [address] Dr. Jasbir Ocampo SED RATE [facility] 2021 SED RATE 43 mm/hr Critically high <=20 [facility] Comment on above: Performed By: #### S EDR #### [facility] [address] [place] [address] Dr. Jasbir Ocampo CBC AUTO DIFFon 10-28-2021 BASO # 0.0 103/ul Normal 0.0-0.1 [facility] Comment on above: Performed By: #### C MP, CK #### [facility] [address] [place] [address] Dr. Jasbir Ocampo Basophils/100 WBC (Bld) 0.6 % Normal 0.2-2.0 [facility] Comment on above: Performed By: #### C MP, CK #### [facility] [address] [place] [address] Dr. Jasbir Ocampo EO # 0.1 103/ul Normal 0.0-0.7 [facility] Comment on above: Performed By: #### C MP, CK #### [facility] [address] [place] [address] Dr. Jasbir Ocampo Eosinophils/100 WBC (Bld) 2.3 % Normal 0.9-7.0 [facility] Comment on above: Performed By: #### C MP, CK #### [facility] [address] [place] [address] Dr. Jasbir Ocampo Erythrocyte distribution width (RBC) [Ratio] 13.7 % Normal 11.0-15.0 [facility] Comment on above: Performed By: #### C MP, CK #### [facility] [address] [place] [address] Dr. Jasbir Ocampo Hematocrit (Bld) [Volume fraction] 41.8 % Critically low 42.0-54.0 [facility] Comment on above: Performed By: #### C MP, CK #### [facility] [address] [place] [address] Dr. Jasbir Ocampo Hemoglobin (Bld) [Mass/Vol] 13.8 g/dL Critically low 14.0-18.0 [facility] Comment on above: Performed By: #### C MP, CK #### [facility] [address] [place] [address] Dr. Jasbir Ocampo IG # 0.02 10e3/ul Normal 0.00-0.03 [facility] Comment on above: Performed By: #### C MP, CK #### [facility] [address] [place] [address] Dr. Jasbir Ocampo IG % 0.4 % Normal 0.0-0.5 [facility] Comment on above: Performed By: #### C MP, CK #### [facility] [address] [place] [address] Dr. Jasbir Ocampo LYMPH # 1.8 103/ul Normal 1.2-3.8 [facility] Comment on above: Performed By: #### C MP, CK #### [facility] [address] [place] [address] Dr. Jasbir Ocampo Lymphocytes/100 WBC (Bld) 36.7 % Normal 20.5-60.0 [facility] Comment on above: Performed By: #### C MP, CK #### [facility] [address] [place] [address] Dr. Jasbir Ocampo MANUAL DIFF REQ NO Normal [facility] Comment on above: Performed By: #### C MP, CK #### [facility] [address] [place] [address] Dr. Jasbir Ocampo MCH (RBC) [Entitic mass] 31.9 pg Normal 25.9-34.0 [facility] Comment on above: Performed By: #### C MP, CK #### [facility] [address] [place] [address] Dr. Jasbir Ocampo MCHC (RBC) [Mass/Vol] 33.0 g/dL Normal 29.9-35.2 [facility] Comment on above: Performed By: #### C MP, CK #### [facility] [address] [place] [address] Dr. Jasbir Ocampo MCV (RBC) [Entitic vol] 96.8 fL Critically high 80.0-94.0 [facility] Comment on above: Performed By: #### C MP, CK #### [facility] [address] [place] [address] Dr. Jasbir Ocampo MONO # 0.4 103/ul Normal 0.3-0.8 [facility] Comment on above: Performed By: #### C MP, CK #### [facility] [address] [address] [address] Jasbir Ocampo Monocytes/100 WBC (Bld) 9.0 % Normal 1.7-12.0 [facility] Comment on above: Performed By: #### C MP, CK #### [facility] [address] [address] [address] Jasbir Ocampo NEUT # 2.5 103/ul Normal 1.4-6.5 [facility] Comment on above: Performed By: #### C MP, CK #### [facility] [address] [place] [address] Dr. Jasbir Ocampo Neutrophils/100 WBC (Bld) 51.0 % Normal 43.0-75.0 [facility] Comment on above: Performed By: #### C MP, CK #### [facility] [address] [place] [address] Dr. Jasbir Ocampo Platelet mean volume (Bld) [Entitic vol] 10.0 fL Normal 9.5-13.5 [facility] Comment on above: Performed By: #### C MP, CK #### [facility] [address] [place] [address] Dr. Jasbir Ocampo PLT 192 103/ul Normal 150-450 [facility] Comment on above: Performed By: #### C MP, CK #### [facility] [address] [address] [address] Jasbir Ocampo RBC 4.32 106/ul Critically low 4.70-6.10 [facility] Comment on above: Performed By: #### C MP, CK #### [facility] [address] [place] [address] Dr. Jasbir Ocampo WBC 4.9 103/ul Normal 4.0-11.0 [facility] Comment on above: Performed By: #### C MP, CK #### [facility] [address] [place] [address] Dr. Jasbir Ocampo CPKon 10-28-2021 CK [Catalytic activity/Vol] 163 U/L Normal 39-308 [facility] Comment on above: Performed By: #### C MP, CK #### [facility] [address] [address] [address] Jasbir Ocampo PROF 14(COMP METB)on 022 Albumin [Mass/Vol] 3.6 g/dL Normal 3.4-5.0 [facility] Comment on above: Performed By: #### C MP, CK #### [facility] [address] [place] [address] Dr. Jasbir Ocampo Albumin/Globulin [Mass ratio] 1.1 {ratio} Normal [facility] Comment on above: Performed By: #### C MP, CK #### [facility] [address] [place] [address] Dr. Jasbir Ocampo ALP [Catalytic activity/Vol] 71 U/L Normal 46-116 [facility] Comment on above: Performed By: #### C MP, CK #### [facility] [address] [place] [address] Dr. Jasbir Ocampo ALT [Catalytic activity/Vol] 24 U/L Normal 16-63 [facility] Comment on above: Performed By: #### C MP, CK #### [facility] [address] [place] [address] Dr. Jasbir Ocampo Anion gap [Moles/Vol] 14.2 mmol/L Normal [facility] Comment on above: Performed By: #### C MP, CK #### [facility] [address] [place] [address] Dr. Jasbir Ocampo AST [Catalytic activity/Vol] 17 U/L Normal 15-37 [facility] Comment on above: Performed By: #### C MP, CK #### [facility] [address] [place] [address] Dr. Jasbir Ocampo Bilirubin [Mass/Vol] 0.6 mg/dL Normal 0.2-1.0 [facility] Comment on above: Performed By: #### C MP, CK #### [facility] [address] [place] [address] Dr. Jasbir Ocampo Calcium [Mass/Vol] 8.9 mg/dL Normal 8.5-10.1 [facility] Comment on above: Performed By: #### C MP, CK #### [facility] [address] [address] [address] Jsabir Ocampo Chloride [Moles/Vol] 105 mmol/L Normal 98-107 [facility] Comment on above: Performed By: #### C MP, CK #### [facility] [address] [address] [address] Jasbir Ocampo CO2 [Moles/Vol] 23.5 mmol/L Normal 21.0-32.0 [facility] Comment on above: Performed By: #### C MP, CK #### [facility] [address] [address] [address] Jasbir Ocampo Creatinine [Mass/Vol] 1.14 mg/dL Normal 0.70-1.30 [facility] Comment on above: Performed By: #### C MP, CK #### [facility] [address] [place] [address] Dr. Jasbir Ocampo EGFR-AF DJIBOUTIAN >60 Normal >=60 [facility] Comment on above: Performed By: #### C MP, CK #### [facility] [address] [place] [address] Dr. Jasbir Ocampo EGFR-NON AF DJIBOUTIAN >60 Normal >=60 [facility] Comment on above: Performed By: #### C MP, CK #### [facility] [address] [address] [address] Jasbir Ocampo Globulin (S) [Mass/Vol] 3.4 g/dL Normal [facility] Comment on above: Performed By: #### C MP, CK #### [facility] [address] [address] [address] Jasbir Ocampo Glucose [Mass/Vol] 91 mg/dL Normal 74-106 [facility] Comment on above: Performed By: #### C MP, CK #### [facility] [address] [address] [address] Jasbir Ocampo Potassium [Moles/Vol] 4.7 mmol/L Normal 3.5-5.1 [facility] Comment on above: Performed By: #### C MP, CK #### [facility] [address] [address] [address] Jasbir Ocampo Protein [Mass/Vol] 7.0 g/dL Normal 6.4-8.2 [facility] Comment on above: Performed By: #### C MP, CK #### [facility] [address] [address] [address] Jasbir Ocampo Sodium [Moles/Vol] 138 mmol/L Normal 136-145 [facility] Comment on above: Performed By: #### C MP, CK #### [facility] [address] [address] [address] Jasbir Ocampo Urea nitrogen [Mass/Vol] 20.0 mg/dL Critically high 7.0-18.0 [facility] Comment on above: Performed By: #### C MP, CK #### [facility] [address] [address] [address] Jasbir Ocampo Urea nitrogen/Creatinine [Mass ratio] 17.5 mg/mg Normal [facility] Comment on above: Performed By: #### C MP, CK #### [facility] [address] [address] [address] Jasbir Ocampo SED RATE [facility] 2021 SED RATE 11 mm/hr Normal <=20 [facility] Comment on above: Performed By: #### S EDR #### [facility] [address] [address] [address] Jasbir Ocampo Ambulatory Clinical Summaryo n 10-28-2020 Ambulatory Clinical Summary {[id number]}CD:[id number] Normal [facility] General Surgery Office/Clini c Noteon 10-28-2020 General [...] Family History Family history is negative Normal [facility] Comment on above: Result Comment: Elec tronically Signed By: QING LAYTON, Wolf Rainey.[email or web address]\Date and Time Signed: 10/28/20 13:11 EDT Pathology Noteon 10-21-2020 Pathology Note [id number] 0CD:127 Normal [facility] Ambulatory Clinical Summaryo n 10-16-2020 Ambulatory Clinical Summary {[id number]}CD:[id number] Normal [facility] General Surgery Office/Clini c Noteon 10-16-2020 General [...] 10/10/2020 Family History Family history is negative [facility] Comment on above: Result Comment: Elec tronically Signed By: QING LAYTON, Wolf Rao\Date and Time Signed: 10/16/20 09:17 EDT Ambulatory Clinical Summaryo n 10-10-2020 Ambulatory Clinical Summary {[id number]}CD:[id number] [facility] Facesheeton 10-10-2020 Facesheet [id number] 0CD:[address] [facility] Insurance Correspondence Off iceon 10-10-2020 Insurance Correspondence Office [id number]:[address] [facility] Consultation Noteon 10-09-19 Consultation Note [id number] 0CD:[address] [facility] Encounters Encounter Date Encounter Type Care Provider Facility Start: 08-12-2022 End: 08-13-[address] JELLY KAUR Facility:[facility] Start: 04-12-[address] JELLY KAUR [facility] ity:[facility] Start: 03-13-2022 End: 03-13-[address] AIDA STACK . Facility:[facility] Start: 03-11-2022 End: 03-12-[address] DOCTOR SEYMOUR Facility:[facility] Start: 10-28-2021 End: 10-29-[address] JELLY KAUR Facility:[facility] Payers Date Payer Category Payer Medicare [id number] 1958 Private Health Insurance CLI [id number] 1958 Self-pay 1935 Unknown [id number] 1935 Unknown [id number] [id number] [id number] 1935 Unknown [id number] [id number] [id number] 1935 Unknown [id number] [id number] [id number] 1935 Unknown [id number] [id number] [id number] Clinical Note 10-10-2020 Note Date & Type [...] 10/10/2020 Family History Family history is negative [facility] Comment on above: Result Comment: Elec tronically [...] section and content) DATE CREATED AUTHOR 10/29/2020 [facility] DATE CREATED AUTHOR AUTHOR'S ORGANIZ ATION 08/19/2022 [facility] FOR RECORDS PERTAINING TO PATIENTS WHO ARE [...] BE BASED ON THE PRIMARY CLINICAL RECORDS. [facility]. provides no warranty or guarantee of the accuracy or completeness of information in this document.
[2023-07-10] MEDS: LACTATED RINGER'S SOLUTION 1,000 ML 100 ML IV (18:29)
[2023-07-10] MEDS: LEVOFLOXACIN IN DEXTROSE 5 % 750 MG/150 ML IV.SOLN 100 MG IV (18:29)
[2023-07-10] MEDS: ENSURE HP 237 ML LIQUID PO (21:27)
[2023-07-10] MEDS: METHYLPREDNISOLONE SOD SUCC PF 125 MG/2 ML VIAL 60 MG IVP (21:27)
[2023-07-10] MEDS: DOXEPIN HCL 25 MG CAPSULE 50 MG PO (21:28)
[2023-07-11] VITALS (21 sets, daily range): BP systolic 109–150; BP diastolic 58–87; PULSE 73–115; TEMP 36.3–36.8; O2SAT 91–95
[2023-07-11] MEDS: METHYLPREDNISOLONE SOD SUCC PF 125 MG/2 ML VIAL 60 MG IVP (02:07)
[2023-07-11] MEDS: LEVALBUTEROL HCL 0.63 MG/3 ML VIAL.NEB 0.630000000000000004 MG IH ×4 (04:22→22:48)
[2023-07-11] MEDS: LEVOTHYROXINE SODIUM 112 MCG TABLET PO (05:43)
[2023-07-11] MEDS: LACTATED RINGER'S SOLUTION 1,000 ML 100 ML IV ×2 (05:45→20:53)
[2023-07-11 05:49] LABS: Eosinophils Percent Auto 0.2 % (0.9-7.0); Hemoglobin 11.7 g/dL (14.0-18.0); Immature Granulocytes Pct Auto 10.4 % (0.0-0.5); Lymphocytes Absolute Auto 0.3 10^3/uL (1.2-3.8); Mean Corpuscular HGB Conc 32.5 g/dL (29.9-35.2); Mean Corpuscular Hemoglobin 32.1 pg (25.9-34.0); Mean Corpuscular Volume 98.6 fL (80.0-94.0); Mean Platelet Volume 10.9 fL (9.5-13.5); Monocytes Absolute Auto 0.1 10^3/uL (0.3-0.8); Monocytes Percent Auto 1.7 % (1.7-12.0); Neutrophils Absolute Auto 3.9 10^3/uL (1.4-6.5); Neutrophils Percent Auto 81.7 % (43.0-75.0); Platelet Count 133 10^3/uL (150-450); Red Blood Count 3.65 10^6/uL (4.70-6.10); Red Cell Distribution Width 13.7 % (11.0-15.0); White Blood Count 4.8 10^3/uL (4.0-11.0)
[2023-07-11 06:06] LABS: Alanine Aminotransferase 22 U/L (16-63); Albumin Globulin Ratio 0.8; Albumin Level 2.7 g/dL (3.4-5.0); Alkaline Phosphatase 56 U/L (46-116); Anion Gap 17.5; Aspartate Amino Transferase 20 U/L (15-37); BUN Creatinine Ratio 21.1; Bilirubin Total 0.4 mg/dL (0.2-1.0); Calcium 8.1 mg/dL (8.5-10.1); Carbon Dioxide 21.4 mmol/L (21.0-32.0); Chloride 104 mmol/L (98-107); Estimated GFR (African America 57 (>=60); Estimated GFR (Non-African Ame 47 (>=60); Globulin 3.4 g/dL; Glucose 203 mg/dL (74-106); Potassium 3.9 mmol/L (3.5-5.1); Sodium 139 mmol/L (136-145); Total Protein 6.1 g/dL (6.4-8.2)
[2023-07-11] MEDS: METHYLPREDNISOLONE SOD SUCC PF 125 MG/2 ML VIAL 40 MG IVP ×3 (08:57→21:25)
[2023-07-11] MEDS: INSULIN ASPART 300 UNIT/3 ML PEN SUBQ ×2 (08:57→17:01)
[2023-07-11] MEDS: ENSURE HP 237 ML LIQUID PO ×2 (08:58→21:25)
[2023-07-11] MEDS: OSELTAMIVIR PHOSPHATE 75 MG CAPSULE PO (08:58)
[2023-07-11] MEDS: OMEPRAZOLE 40 MG CAPSULE.DR PO (08:58)
--- NOTE | 2023-07-11 09:11 | P.PN_ITS ---
Progress Note: Subjective Subjective Interval history: Does not he feels much better, he started the treatment last evening. Exam Constitutional Vital Signs, click to edit/add: Last Vital Signs Temp 97.8 F 07/11/23 08:00 Pulse 87 07/11/23 08:00 Resp 20 07/11/23 08:00 BP 129/69 07/11/23 08:00 Pulse Ox 94 L 07/11/23 08:00 O2 Del Method Nasal Cannula 07/11/23 08:00 O2 Flow Rate 2 07/11/23 08:00 Documenting provider has reviewed patient's vital signs: yes Common normals: no apparent distress Chest Common normals: inspection of chest normal Respiratory Common normals: abnormal respiratory effort (MIld conversational dyspnea) Auscultation: rhonchi, wheezes and egophony right lower Cardio Common normals: regular rhythm; irregular rate Rate: tachycardic GI Common normals: Normal to inspection, nondistended, normoactive bowel sounds present, soft to palpation, non-tender and no masses Extremity Common normals: normal to inspection, full ROM and no clubbing, cyanosis or edema Progress Note: Objective Labs Labs: Short CBC 07/10/23 07/11/23 Range/Units 14:00 04:58 WBC 7.6 4.8 (4.0-11.0) 10^3/uL Hgb 14.8 11.7 L (14.0-18.0) g/dL Hct 45.3 36.0 L (42.0-54.0) % Plt Count 147 L 133 L (150-450) 10^3/uL BMP 07/10/23 07/11/23 14:00 04:58 Sodium 140 139 Potassium 4.2 3.9 Chloride 105 104 Carbon Dioxide 25.1 21.4 BUN 20.0 H 30.0 H Creatinine 1.39 H 1.42 H Glucose 103 203 H Calcium 8.8 8.1 L Liver Function 07/10/23 07/11/23 Range/Units 14:00 04:58 Total Bilirubin 1.1 H 0.4 (0.2-1.0) mg/dL AST 21 20 (15-37) U/L ALT 25 22 (16-63) U/L Alkaline Phosphatase 72 56 (46-116) U/L Albumin 3.8 2.7 L (3.4-5.0) g/dL Progress Note: A&P Assessment and Plan (1) Asthma exacerbation in COPD: (2) Influenza A: Plan Sinus tachycardia, acute hypoxia with O2 saturation of 87%, respiratory distress, hypotension, blood cell count with left shift, consistent with bacterial process, relative hypoxia with O2 saturation of 91% on 1.5 L, patient does not wear supplemental oxygen at home, this is secondary to influenza A and likely right lower lobe pneumonia on exam causing acute exacerbation of COPD- aerosols, steroids, antibiotics, repeat x-ray today. Acute kidney injury with creatinine 139% above baseline. Normal creatinine is 1.03 current creatinine 1.39 -up slightly today, will give fluid bolus. Thrombocytopenia-likely secondary to above-monitor daily-deteriorated today Hyperglycemia secondary to steroids-monitor daily Low back pain-Home medications Acute drop in hemoglobin-he is down 3 g, check occult blood Significant generalized weakness. He had difficulty standing up at home. Would be an excellent rehabilitation candidate. Inpatient criteria: Patient with likely right lower lobe pneumonia secondary to influenza A, complicated by acute exacerbation of COPD, with hypoxia, unable to improve patient over 2 midnight course, medically necessary treatment will span [address] patient to inpatient status ?
[2023-07-11] MEDS: CEFTRIAXONE 1,000 MG in 0.9 % SODIUM CHLORIDE 50 ML 100 MG IV (09:12)
--- NOTE | 2023-07-11 09:13 | XR_ITS ---
[address] [address] Patient Name: BART FLETCHER MRN: [id number] date: 1935 Sex: M Assigned Patient Location: [place] Current Patient Location: [place] Accession/Order Number: [id number] Exam Date: 07/11/2023 09:16 Report Date: 07/11/2023 10:14 At the request of: AIDA SIMS Procedure: XR chest 2V EXAMINATION: XR chest 2V HISTORY: pneumonia COMPARISON: XR chest 07/10/2023, 06/11/2019, 01/26/2017 FINDINGS: LUNGS: No significant pulmonary parenchymal abnormalities. VASCULATURE: No increased pulmonary vasculature. PLEURA: No pneumothorax, effusion, or pleural thickening. CARDIAC: No cardiomegaly or cardiac silhouette abnormality. MEDIASTINUM: Prior sternotomy. No visible mass or adenopathy. BONES: No fracture or visible bone lesion. OTHER: Negative. XR/XR chest 2V IMPRESSION: 1. No acute cardiopulmonary process. Stable chest. Electronically authenticated by: JULIA RAMIREZ Date: 07/11/2023 10:14
--- NOTE | 2023-07-11 09:21 | CM.NOTE ---
Rounds made with Dr. Stack, pt has increased work of breathing this AM and will repeat CXR this AM. PT and OT will evaluate pt for discharge recommendations.
--- NOTE | 2023-07-11 09:51 | CM.NOTE ---
Important Message From Medicare discussed with pt, pt verbalizes understanding and signs paper. Original given to pt and copy placed in pt's chart.
--- NOTE | 2023-07-11 10:12 | SWNOTE1 ---
CORTES met with pt to discuss dc needs. Pt lives at home by himself. He does not wear home oxygen, but is on 02 here currently. 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 Pt's daughter does help as needed, she works at [employer]. Pt does feel he needs rehab for a short time to get stronger. Pt would like to go to [facility]. Advised they have been full, but SW to contact them to see if any openings. CORTES spoke to Td and she does have an opening and to send referral. Referral sent to [facility]. Referral included face sheet, ED note, H&P, provider notes, case management report, wound, nursing notes, diagnostic imaging, med list. Will send PT/OT once documented.
[2023-07-11] MEDS: IPRATROPIUM BROMIDE 0.5 MG/2.5 ML VIAL.NEB IH ×3 (10:37→22:48)
[2023-07-11] MEDS: 0.9 % SODIUM CHLORIDE 1,000 ML 250 ML IV (10:42)
[2023-07-11 11:39] LABS: Glucometer 141 mg/dL (74-106)
--- NOTE | 2023-07-11 12:33 | SWNOTE1 ---
SW spoke to pt and daughter in room and they have decided they want pt to go to [facility] where pt's daughter and grand-daughter work. SW let [place] know and sent referral to [facility]. Referral sent to [facility]. Referral included face sheet, ED note, H&P, provider notes, case management report, wound consult, nursing notes, diagnostic imaging, med list. CORTES will send PT/OT once completed.
--- NOTE | 2023-07-11 14:09 | SWNOTE1 ---
SW received call from [facility] and they are able to accept pt once he is ready for discharge.
[2023-07-11 15:20] LABS: Occult Blood Negative
--- NOTE | 2023-07-11 16:13 | RESP.RT ---
Titrated down to 1L
[2023-07-11 16:28] LABS: Glucometer 152 mg/dL (74-106)
[2023-07-11 20:47] LABS: Glucometer 142 mg/dL (74-106)
[2023-07-11] MEDS: OSELTAMIVIR PHOSPHATE 30 MG CAPSULE PO (21:25)
[2023-07-11] MEDS: DOXEPIN HCL 25 MG CAPSULE 50 MG PO (21:25)
[2023-07-11] MEDS: ACETAMINOPHEN 500 MG TABLET 1000 MG PO (23:56)
[2023-07-12] VITALS (24 sets, daily range): BP systolic 122–156; BP diastolic 68–90; PULSE 69–118; TEMP 36.2–36.7; O2SAT 83–95
[2023-07-12] MEDS: METHYLPREDNISOLONE SOD SUCC PF 125 MG/2 ML VIAL 40 MG IVP ×4 (02:09→20:05)
[2023-07-12] MEDS: IPRATROPIUM BROMIDE 0.5 MG/2.5 ML VIAL.NEB IH ×4 (04:39→22:46)
[2023-07-12] MEDS: LEVALBUTEROL HCL 0.63 MG/3 ML VIAL.NEB 0.630000000000000004 MG IH ×4 (04:39→22:46)
[2023-07-12 04:56] LABS: Eosinophils Percent Auto 0.2 % (0.9-7.0); Hematocrit 35.8 % (42.0-54.0); Hemoglobin 11.8 g/dL (14.0-18.0); Immature Granulocytes Abs Auto 0.67 10^3/uL (0.00-0.03); Immature Granulocytes Pct Auto 7.5 % (0.0-0.5); Lymphocytes Absolute Auto 0.4 10^3/uL (1.2-3.8); Lymphocytes Percent Auto 4.6 % (20.5-60.0); Mean Corpuscular Hemoglobin 32.3 pg (25.9-34.0); Mean Corpuscular Volume 98.1 fL (80.0-94.0); Mean Platelet Volume 10.6 fL (9.5-13.5); Monocytes Absolute Auto 0.2 10^3/uL (0.3-0.8); Monocytes Percent Auto 2.4 % (1.7-12.0); Neutrophils Absolute Auto 7.7 10^3/uL (1.4-6.5); Neutrophils Percent Auto 85.3 % (43.0-75.0); Platelet Count 144 10^3/uL (150-450); Red Blood Count 3.65 10^6/uL (4.70-6.10); Red Cell Distribution Width 13.9 % (11.0-15.0)
[2023-07-12 05:20] LABS: Alanine Aminotransferase 36 U/L (16-63); Albumin Globulin Ratio 0.9; Albumin Level 2.7 g/dL (3.4-5.0); Alkaline Phosphatase 50 U/L (46-116); Anion Gap 12.7; Aspartate Amino Transferase 58 U/L (15-37); BUN Creatinine Ratio 27.3; Bilirubin Total 0.3 mg/dL (0.2-1.0); Calcium 8.5 mg/dL (8.5-10.1); Carbon Dioxide 23.6 mmol/L (21.0-32.0); Chloride 109 mmol/L (98-107); Estimated GFR (African America >60 (>=60); Estimated GFR (Non-African Ame >60 (>=60); Globulin 3.1 g/dL; Glucose 155 mg/dL (74-106); Potassium 4.3 mmol/L (3.5-5.1); Sodium 141 mmol/L (136-145); Total Protein 5.8 g/dL (6.4-8.2)
[2023-07-12] MEDS: LEVOTHYROXINE SODIUM 112 MCG TABLET PO (05:34)
[2023-07-12] MEDS: LACTATED RINGER'S SOLUTION 1,000 ML 100 ML IV (05:57)
--- NOTE | 2023-07-12 06:38 | PC.NURSE ---
Pt up to the bathroom Resp labored and audible wheezing noted. Pt returns to bed, O2 reapplied at 1L (had on prior to going to the bathroom and refused to leave it on when he got up) sat in the low 80s. O2 turned up to 2L and sats came up to low 90s.
[2023-07-12 07:42] LABS: Glucometer 156 mg/dL (74-106)
[2023-07-12] MEDS: INSULIN ASPART 300 UNIT/3 ML PEN SUBQ ×2 (09:33→16:48)
[2023-07-12] MEDS: OSELTAMIVIR PHOSPHATE 30 MG CAPSULE PO ×2 (09:34→21:45)
[2023-07-12] MEDS: TRAMADOL HCL 50 MG TABLET PO (09:34)
[2023-07-12] MEDS: OMEPRAZOLE 40 MG CAPSULE.DR PO (09:34)
[2023-07-12] MEDS: ENSURE HP 237 ML LIQUID PO ×2 (09:34→21:45)
[2023-07-12] MEDS: CEFTRIAXONE 1,000 MG in 0.9 % SODIUM CHLORIDE 50 ML 100 MG IV (09:34)
--- NOTE | 2023-07-12 10:57 | P.PN_ITS ---
Progress Note: Subjective Subjective Interval history: Other clinically appears improved he does not feel like he has had significant improvement, coughing is persisting. Exam Constitutional Vital Signs, click to edit/add: Last Vital Signs Temp 97.7 F 07/12/23 09:50 Pulse 70 07/12/23 10:45 Resp 16 07/12/23 10:45 BP 156/90 H 07/12/23 09:50 Pulse Ox 91 L 07/12/23 10:45 O2 Del Method Nasal Cannula 07/12/23 10:45 O2 Flow Rate 1 07/12/23 10:45 Documenting provider has reviewed patient's vital signs: yes Common normals: no apparent distress Chest Common normals: inspection of chest normal Respiratory Common normals: normal respiratory effort (Improved) Auscultation: rhonchi, wheezes and egophony right lower Cardio Common normals: regular rhythm; irregular rate Rate: tachycardic GI Common normals: Normal to inspection, nondistended, normoactive bowel sounds present, soft to palpation, non-tender and no masses Extremity Common normals: normal to inspection, full ROM and no clubbing, cyanosis or edema Progress Note: Objective Labs Labs: Short CBC 07/12/23 Range/Units 04:39 WBC 9.0 (4.0-11.0) 10^3/uL Hgb 11.8 L (14.0-18.0) g/dL Hct 35.8 L (42.0-54.0) % Plt Count 144 L (150-450) 10^3/uL BMP 07/12/23 04:39 Sodium 141 Potassium 4.3 Chloride 109 H Carbon Dioxide 23.6 BUN 27.0 H Creatinine 0.99 Glucose 155 H Calcium 8.5 Liver Function 07/12/23 Range/Units 04:39 Total Bilirubin 0.3 (0.2-1.0) mg/dL AST 58 H (15-37) U/L ALT 36 (16-63) U/L Alkaline Phosphatase 50 (46-116) U/L Albumin 2.7 L (3.4-5.0) g/dL Progress Note: A&P Assessment and Plan (1) Asthma exacerbation in COPD: (2) Influenza A: Plan Admisiuon Dx: Sinus tachycardia, acute hypoxia with O2 saturation of 87%, respiratory distress, hypotension, blood cell count with left shift, consistent with bacterial process, relative hypoxia with O2 saturation of 91% on 1.5 L, patient does not wear supplemental oxygen at home, this is secondary to influenza A and likely right lower lobe pneumonia on exam causing acute exacerbation of COPD-the do a trial of IPV's today. White blood cell count does have a significant left shift consistent with bacterial process but will maintain current antibiotics his white blood cell count is normal.. Acute kidney injury with creatinine 139% above baseline. Normal creatinine is 1.03 current creatinine 1.39 -up slightly today, will give fluid bolus. Thrombocytopenia-likely secondary to above-monitor daily-improved today Hyperglycemia secondary to steroids-monitor daily Low back pain-Home medications Acute drop in hemoglobin-he is down 3 g, check occult blood Significant generalized weakness. He had difficulty standing up at home. Would be an excellent rehabilitation candidate. Inpatient criteria: Patient with likely right lower lobe pneumonia secondary to influenza A, complicated by acute exacerbation of COPD, with hypoxia, unable to improve patient over 2 midnight course, medically necessary treatment will span [address] patient to inpatient status ?
--- NOTE | 2023-07-12 10:59 | CM.NOTE ---
Rounds made with Dr. Aquino, pt will discharge to [facility] when medically stable.
[2023-07-12 11:34] LABS: Glucometer 118 mg/dL (74-106)
--- NOTE | 2023-07-12 12:08 | PT.DAILY ---
Physical Therapy Daily Note PT Daily Note/Assess Start: 07/11/23 13:42 Freq: Status: Active Protocol: Document 07/12/23 11:20 ADEEL (Rec: 07/12/23 12:07 ADEEL [id number]) Physical Therapy Daily Note/Assessment Time In/Time Out Time In 11:20 Time Out 11:40 Subjective Subjective Patient is very motivated. Denies complaints. Therapeutic Exercise Time Therapeutic Exercise Minutes (minutes) 10 Therapeutic Exercise Units 0 Therapeutic Exercise Treatment Therapeutic Exercise Treatment Standing sink exercises 6 way (HR, mini squats, Marches, Hip abduction, Hip ext. and HS curls) 10x each with rest breaks as needed. Therapeutic Activity Time Therapeutic Activity Minutes (minutes) 10 Therapeutic Activity Units 1 Therapeutic Activity Treatment Chair Transfer Ability Standby Assistance Therapeutic Activity Comments 100' gait with IV poll SBA, did need assistance with O2 and IV line management to not get tangled up. 25'x2 gait without AD CGA to min assist. Patient was impulsive at times and became SOB by end of RX. Sit to stand 5x from various heights EOB SBA. Total Physical Therapy Time Total Therapy Minutes 20 Total Physical Therapy Units 1 Summary Daily Note Summary Impulsive with decrease safety awareness at times during gait, but does not have LOB. Progressed with standing exercises for strengthening. Patient becomes SOB very quickly requiring rest breaks throughout RX. Continue to recommend SNF [place] to regain functional strength and endurance.
[2023-07-12] MEDS: LEVOFLOXACIN IN DEXTROSE 5 % 750 MG/150 ML IV.SOLN 100 MG IV (15:33)
[2023-07-12] MEDS: SODIUM CHLORIDE 0.9% INHALATION 3 ML NEB 2 ML IH (16:41)
[2023-07-12 16:47] LABS: Glucometer 182 mg/dL (74-106)
[2023-07-12 21:43] LABS: Glucometer 82 mg/dL (74-106)
[2023-07-12] MEDS: DOXEPIN HCL 25 MG CAPSULE 50 MG PO (21:45)
[2023-07-12] MEDS: SODIUM CHLORIDE 0.9% INHALATION 3 ML NEB IH (22:47)
[2023-07-13] VITALS (10 sets, daily range): BP systolic 130–138; BP diastolic 67–76; PULSE 60–94; TEMP 36.4–36.6; O2SAT 90–94
[2023-07-13] MEDS: ACETAMINOPHEN 500 MG TABLET 1000 MG PO (00:29)
[2023-07-13] MEDS: METHYLPREDNISOLONE SOD SUCC PF 125 MG/2 ML VIAL 40 MG IVP (03:00)
[2023-07-13] MEDS: SODIUM CHLORIDE 0.9% INHALATION 3 ML NEB IH ×2 (04:54→10:52)
[2023-07-13] MEDS: IPRATROPIUM BROMIDE 0.5 MG/2.5 ML VIAL.NEB IH ×2 (04:54→10:51)
[2023-07-13] MEDS: LEVALBUTEROL HCL 0.63 MG/3 ML VIAL.NEB 0.630000000000000004 MG IH ×2 (04:54→10:51)
[2023-07-13 05:29] LABS: Eosinophils Percent Auto 0.3 % (0.9-7.0); Immature Granulocytes Abs Auto 0.58 10^3/uL (0.00-0.03); Immature Granulocytes Pct Auto 7.9 % (0.0-0.5); Lymphocytes Absolute Auto 0.5 10^3/uL (1.2-3.8); Lymphocytes Percent Auto 7.2 % (20.5-60.0); Mean Corpuscular HGB Conc 32.4 g/dL (29.9-35.2); Mean Corpuscular Hemoglobin 32.2 pg (25.9-34.0); Mean Corpuscular Volume 99.2 fL (80.0-94.0); Mean Platelet Volume 10.6 fL (9.5-13.5); Monocytes Absolute Auto 0.2 10^3/uL (0.3-0.8); Monocytes Percent Auto 2.6 % (1.7-12.0); Platelet Count 164 10^3/uL (150-450); Red Blood Count 3.73 10^6/uL (4.70-6.10); Red Cell Distribution Width 13.7 % (11.0-15.0); White Blood Count 7.3 10^3/uL (4.0-11.0)
[2023-07-13] MEDS: LEVOTHYROXINE SODIUM 112 MCG TABLET PO (05:30)
[2023-07-13 05:56] LABS: Alanine Aminotransferase 53 U/L (16-63); Albumin Globulin Ratio 0.9; Albumin Level 2.7 g/dL (3.4-5.0); Alkaline Phosphatase 45 U/L (46-116); Anion Gap 12.2; Aspartate Amino Transferase 62 U/L (15-37); BUN Creatinine Ratio 34.4; Bilirubin Total 0.3 mg/dL (0.2-1.0); Calcium 8.4 mg/dL (8.5-10.1); Carbon Dioxide 24.3 mmol/L (21.0-32.0); Chloride 109 mmol/L (98-107); Estimated GFR (African America >60 (>=60); Estimated GFR (Non-African Ame >60 (>=60); Glucose 128 mg/dL (74-106); Potassium 4.5 mmol/L (3.5-5.1); Sodium 141 mmol/L (136-145); Total Protein 5.7 g/dL (6.4-8.2)
[2023-07-13] MEDS: PREDNISONE 20 MG TABLET 40 MG PO (08:44)
[2023-07-13] MEDS: OMEPRAZOLE 40 MG CAPSULE.DR PO (08:44)
[2023-07-13] MEDS: ENSURE HP 237 ML LIQUID PO (08:44)
[2023-07-13] MEDS: OSELTAMIVIR PHOSPHATE 30 MG CAPSULE PO (08:44)
[2023-07-13] MEDS: CEFTRIAXONE 1,000 MG in 0.9 % SODIUM CHLORIDE 50 ML 100 MG IV (08:44)
--- NOTE | 2023-07-13 09:31 | P.DS_ITS ---
DS: Providers Provider Date of admission: 07/10/23 17:22 Primary care physician: Non-Staff Physician, Consults: 07/10/23 15:20 Consult to Pharmacy Routine Consulting Provider: Reason for consultation: Please [place] me when Med Rec is Updated Has provider been notified: No Occupational Therapy Eval and Treat Routine Reason for consultation: Only if needed for Rehab Has provider been notified: No Physical Therapy Eval and Treat Routine Reason for consultation: Eval and Treat Has provider been notified: No 07/11/23 09:13 Consult to Digital Designer Routine Reason for consult:: Correction Other reason:: placement willows DS: Diagnosis Discharge Diagnosis (1) Asthma exacerbation in COPD: (2) Influenza A: (3) Low back pain: Plan [place] Dx: Sinus tachycardia, acute hypoxia with O2 saturation of 87%, respiratory distress, hypotension, blood cell count with left shift, consistent with bacterial process, relative hypoxia with O2 saturation of 91% on 1.5 L, patient does not wear supplemental oxygen at home, this is secondary to influenza A and likely right lower lobe pneumonia on exam causing acute exacerbation of COPD-the do a trial of IPV's today. White blood cell count does have a significant left shift consistent with bacterial process but will maintai n current antibiotics his white blood cell count is normal.. Acute kidney injury with creatinine 139% above baseline. Normal creatinine is 1.03 current creatinine 1.39 -up slightly today, will give fluid bolus. Thrombocytopenia-likely secondary to above-monitor daily-improved today Hyperglycemia secondary to steroids-monitor daily Low back pain-Home medications Acute drop in hemoglobin-he is down 3 g, check occult blood Significant generalized weakness. He had difficulty standing up at home. Would be an excellent rehabilitation candidate. Inpatient criteria: Patient with likely right lower lobe pneumonia secondary to influenza A, complicated by acute exacerbation of COPD, with hypoxia, unable to improve patient over 2 midnight course, medically necessary treatment will span [address] patient to inpatient status ? ? DS: Summary Hospital Course Hospital Course: Patient presented to the emergency room with increasing cough and shortness of breath. Found to have influenza. Also acute exacerbation of COPD secondary to pneumonia. Patient was treated with IV antibiotics, aerosol treatments, steroids, Tamiflu. Very slow to improve. We did try IPV treatments yesterday which did seem to improve his oxygen saturation. This morning has been able to be weaned off of his supplemental oxygen. He is ambulating still with significant weakness in his bilateral lower extremities secondary to the overall illness and deconditioning. Patient in need of rehab. Patient stable for discharge to rehab today. Medications see list. I will follow-up with patient in the office after rehab. Time Spent with Patient Time attestation: Total time spent providing and/or coordinating discharge services: Exam Constitutional Vital Signs, click to edit/add: Last Vital Signs Temp 97.8 F 07/13/23 08:00 Pulse 70 07/13/23 08:00 Resp 20 07/13/23 08:00 BP 131/67 07/13/23 08:00 Pulse Ox 90 L 07/13/23 08:00 O2 Del Method Room Air 07/13/23 08:00 O2 Flow Rate 1 07/13/23 04:00 Documenting provider has reviewed patient's vital signs: yes Common normals: no apparent distress Chest Common normals: inspection of chest normal Respiratory Common normals: normal respiratory effort (Improved) Auscultation: rhonchi, wheezes and egophony right lower Cardio Common normals: regular rhythm; irregular rate Rate: tachycardic GI Common normals: Normal to inspection, nondistended, normoactive bowel sounds present, soft to palpation, non-tender and no masses Extremity Common normals: normal to inspection, full ROM and no clubbing, cyanosis or edema DS: Data Data Completed and Pending Labs on day of discharge: Labs from last 24 hours 07/13/23 07/12/23 07/12/23 04:55 21:42 16:46 WBC 7.3 RBC 3.73 L Hgb 12.0 L Hct 37.0 L MCV 99.2 H MCH 32.2 MCHC 32.4 RDW 13.7 Plt Count 164 MPV 10.6 Neut % (Auto) 82.0 H Lymph % (Auto) 7.2 L Kidder % (Auto) 2.6 Eos % (Auto) 0.3 L Baso % (Auto) 0.0 L Neut # (Auto) 6.0 Lymph # (Auto) 0.5 L Kidder # (Auto) 0.2 L Eos # (Auto) 0.0 Baso # (Auto) 0.0 Abs Immat Gran (auto) 0.58 H Imm/Tot Granulo (auto) 7.9 H Sodium 141 Potassium 4.5 Chloride 109 H Carbon Dioxide 24.3 Anion Gap 12.2 BUN 32.0 H Creatinine 0.93 Est GFR ( Amer) >60 Est GFR (Non-Af Amer) >60 BUN/Creatinine Ratio 34.4 Glucose 128 H Calcium 8.4 L Total Bilirubin 0.3 AST 62 H ALT 53 Alkaline Phosphatase 45 L Total Protein 5.7 L Albumin 2.7 L Globulin 3.0 Albumin/Globulin Ratio 0.9 POC Glucose 82 182 H 07/12/23 11:33 WBC RBC Hgb Hct MCV MCH MCHC RDW Plt Count MPV Neut % (Auto) Lymph % (Auto) Kidder % (Auto) Eos % (Auto) Baso % (Auto) Neut # (Auto) Lymph # (Auto) Kidder # (Auto) Eos # (Auto) Baso # (Auto) Abs Immat Gran (auto) Imm/Tot Granulo (auto) Sodium Potassium Chloride Carbon Dioxide Anion Gap BUN Creatinine Est GFR ( Amer) Est GFR (Non-Af Amer) BUN/Creatinine Ratio Glucose Calcium Total Bilirubin AST ALT Alkaline Phosphatase Total Protein Albumin Globulin Albumin/Globulin Ratio POC Glucose 118 H Preliminary micro results at discharge 07/10/23 15:59 - Preliminary Blood NO GROWTH AT 36-48 HOURS. FINAL TO FOLLOW. 07/10/23 15:58 Blood Culture Result 1 - Preliminary Blood - Right NO GROWTH AT 36-48 HOURS. FINAL TO FOLLOW. Discharge Plan Discharge Disposition: Xfer SNF Condition: Good Discharge Medications: New tramadol 50 mg Tablet 50 mg PO BID PRN (Reason: pain) Qty: 60 0RF prednisone 10 mg tablet 40 mg PO DAILY Qty: 32 0RF Rx Instructions: 5/day for 3 days. 4/day for 3 days, 3/day for 3 days, 2/day for 3 days, 1/day for 3 days, 1/2 /day for 4 days levofloxacin 500 mg tablet 500 mg PO DAILY 7 Days Qty: 7 0RF Continued doxepin 25 mg capsule 50 mg PO .QHS levothyroxine 112 mcg tablet 112 mcg PO .ACB pantoprazole 40 mg tablet,delayed release (DR/EC) 40 mg PO .QD prednisone 5 mg tablet 5 mg PO .QOD tramadol 50 mg tablet 50 mg PO BID PRN (Reason: pain) Print Language: Togolese Planning Consultant/Catering Attendant Instructions: Discharge to [facility] skilled Forms: Portal Instructions Discharge Date/Time: 07/13/23 12:41
--- NOTE | 2023-07-13 09:33 | CM.NOTE ---
Rounds made with Dr. Stack, pt will discharge to [facility] today for skilled therapy. [facility] [address] Stack wants pt to keep this appt.
--- NOTE | 2023-07-13 09:51 | CM.NOTE ---
2nd Notice of Important Message From Medicare discussed with pt, pt denies any questions or concerns.
--- NOTE | 2023-07-13 10:28 | SWNOTE1 ---
Pt is going to [facility] today.
--- NOTE | 2023-07-13 10:45 | SWNOTE1 ---
SW completed HENS.
--- NOTE | 2023-07-13 10:51 | SWNOTE1 ---
in med rec sent to [facility].
[2023-07-13 11:02] LABS: Glucometer 127 mg/dL (74-106)
[2023-07-13] MEDS: TRAMADOL HCL 50 MG TABLET PO (12:00)
--- NOTE | 2023-07-13 12:10 | SWNOTE1 ---
Discharge order is in, dc med rec has been sent to [facility]. [facility] called [facility] and notified them pt's daughter is brining him some time around 1-1:30. [facility] updated packet and HENS is completed. Nursing is aware that daughter is transporting. [t is goign to [facility].
--- NOTE | 2023-07-13 12:18 | PC.NURSE ---
[place] called and left message for them to call back for report. called twice with no one picking up phone
--- NOTE | 2023-07-13 12:28 | PC.NURSE ---
[facility] nurse called back and report given at this time
== END 2023-07-13 12:41 | DRG 194 ==
LOC: ER 15:07 → MS 17:28
PROVIDERS: Admitting Provider Family Medicine; Emergency Provider Emergency Medicine; Visit Provider Family Medicine
DX: J10.00 Influenza due to other identified influenza virus with unspecified type of pneumonia (principal); J44.0 Chronic obstructive pulmonary disease with (acute) lower respiratory infection; J45.901 Unspecified asthma with (acute) exacerbation; N17.9 Acute kidney failure, unspecified; J44.1 Chronic obstructive pulmonary disease with (acute) exacerbation; D69.6 Thrombocytopenia, unspecified; R00.0 Tachycardia, unspecified; I95.9 Hypotension, unspecified; R09.02 Hypoxemia; R06.03 Acute respiratory distress; R73.9 Hyperglycemia, unspecified; T38.0X5A Adverse effect of glucocorticoids and synthetic analogues, initial encounter; M54.50 Low back pain, unspecified; R53.1 Weakness; R79.89 Other specified abnormal findings of blood chemistry; Z87.891 Personal history of nicotine dependence
CPT/HCPCS: 36415; 71045; 71046; 80053; 82948; 83605; 83735; 83880; 84484; 85007; 85025; 85027; 87040; 87070; 87804; 87811; 93005; 94640; 94667; 94668; 94761; 96361; 96365; 96366; 96367; 96375; 96376; 97161; 97165; 97530; 97535; 99285; G0328; J2919; J2930

== ENCOUNTER 2023-08-08 19:29 | Emergency (ER) | payer MEDICARE, SELFPAY ==
[2023-08-08 19:33] VITALS: BP 119/73; PULSE 109; TEMP 36.9; O2SAT 91; BMI 24.8
--- OUTSIDE RECORDS SUMMARY | 2023-08-08 19:48 | XMS_ITS | CCD ---
Author Organization [facility] Care Team Providers Care Camp Coordinator Name Role Phone NATASHA, DR REAVES Consulting Unavailable NATASHA, DR REAVES Attending Unavailable HOY ., DR PARRA Primary Care Unavailable KAUR, DR REAVES Admitting Unavailable MISC, DR GAINES Consulting Unavailable NATASHA, DR REAVES Attending Unavailable NATASHA, DR REAVES Admitting Unavailable HOY ., DR PARRA Primary Care Unavailable HOY ., DR PARRA Primary Care Unavailable HAY ., DR DESOUZA Admitting Unavailable HAY ., DR DESOUZA Consulting Unavailable HAY ., DR DESOUZA Attending Unavailable KNABE, CELESTE Consulting Unavailable NATASHA, DR REAVES Attending Unavailable NATASHA, DR REAVES Admitting Unavailable HOY ., DR PARRA Primary Care Unavailable KAUR, DR REAVES Attending Unavailable KAUR, DR REAVES Admitting Unavailable HOY ., DR PARRA Primary Care Unavailable NATASHA, DR REAVES Consulting Unavailable Ike Sims MD Primary Care Provider [phone] Medications Current Medications Medication Drug Class(es) Dates Sig (Normalized) Sig (Original) aspirin 81 mg delayed release oral tablet (1 source) Platelet Aggregation Inhibitor, Nonsteroidal Anti-inflammatory Drug take 81 mg by mouth once daily aspirin 81 mg Take 81 mg by mouth daily. 0 Active cholecalciferol 0.025 mg oral capsule (1 source) Vitamin D take 2 capsules by mouth once daily cholecalciferol, vitamin D3, (VITAMIN D3) 1,000 unit capsule Take 2,000 Units by mouth daily. 0 Active chondroitin sulfates 400 mg / glucosamine hydrochloride 500 mg oral capsule (1 source) glucosamine-jayna matthew it-vit C-Mn (GLUCOSAMINE 1500 COMPLEX) 500-400 mg capsule Take 1,500 mg by mouth daily. 0 Active 60 actuat formoterol fumarate 0.005 mg/actuat / mometasone furoate 0.2 mg/actuat metered dose inhaler (1 source) Corticosteroid, beta2-Adrenergic Agonist take 2 puff(s) by inhalation twice daily mometasone-formoter ol (DULERA) 200-5 mcg/actuation inhaler Inhale 2 puffs 2 (two) times a day. 0 Active levothyroxine sodium 0.112 mg oral tablet (1 source) l-Thyroxine take 1 tablet by mouth once daily levothyroxine (SYNTHROID, LEVOTHROID) 112 MCG tablet Take 112 mcg by mouth daily. 0 Active MULTIVIT-MINERALS/FERR OUS FUM (MULTI VITAMIN ORAL) (1 source) MULTIVIT-MINERAL S/F ERROUS FUM (MULTI VITAMIN ORAL) Take by mouth. 0 Active pantoprazole 20 mg delayed release oral tablet (1 source) Proton Pump Inhibitor take 1 tablet by mouth once daily pantoprazole (PROTONIX) 20 mg EC tablet Take 20 mg by mouth daily. 0 Active simvastatin 20 mg oral tablet (1 source) HMG-CoA Reductase Inhibitor take 1 tablet by mouth once daily simvastatin (ZOCOR) 20 mg tablet Take 20 mg by mouth nightly. 0 Active traMADol hydrochloride 50 mg oral tablet (1 source) Opioid Agonist take 1 tablet by mouth every six hours as needed for pain traMADol (ULTRAM) 50 mg tablet Take 50 mg by mouth every 6 (six) hours as needed for pain. 0 Active Problems Active Problems Problem Classification Problem Date Documented Date Episodic/Chronic Asthma (2 sources) Exacerbation of severe persistent asthma; Translations: [Severe persistent asthma with (acute) exacerbation] Onset: 07-15-2023 07-15-2023 Chronic Chronic kidney disease (3 sources) Chronic kidney disease, stage 2 (mild); Translations: [Chronic kidney disease stage 3] Onset: 03-15-2022 07-15-2023 Chronic Chronic obstructive pulmonary disease and bronchiectasis (3 sources) Emphysema, unspecified; Translations: [Chronic obstructive lung disease] Onset: 03-15-2022 07-15-2023 Chronic Coagulation and hemorrhagic disorders (2 sources) Thrombocytopenic disorder; Translations: [Thrombocytopenia, unspecified] Onset: 07-15-2023 07-15-2023 Chronic Complication of device; implant or graft (2 sources) Arteriosclerosis of autologous vein coronary artery bypass graft; Translations: [Atherosclerosis of coronary artery bypass graft(s) without angina pectoris] Onset: 07-15-2023 07-15-2023 Chronic Coronary atherosclerosis and other heart disease (2 sources) Old myocardial infarction; Translations: [Atherosclerotic heart disease of [place] coronary artery without angina pectoris] Onset: 03-15-2022 Chronic Disorders of lipid metabolism (3 sources) Pure hypercholesterolemia, unspecified; Translations: [Hyperlipidemia] Onset: 03-15-2022 07-15-2023 Chronic Esophageal disorders (2 sources) Gastroesophageal reflux disease; Translations: [Gastro-esophageal reflux disease without esophagitis] Onset: 07-15-2023 07-15-2023 Chronic Hyperplasia of prostate (1 source) Benign prostatic hyperplasia without lower urinary tract symptoms; Translations: [BENIGN PROSTATIC HYPRPLASIA WO LUTS] Onset: 03-15-2022 Chronic Influenza (3 sources) Influenza due to Influenza A virus; Translations: [Influenza due to other identified influenza virus with other respiratory manifestations] Onset: 07-15-2023 07-15-2023 Episodic Osteoarthritis (2 sources) Primary generalized (osteo)arthritis; Translations: [Unspecified osteoarthritis, unspecified site] Onset: 03-15-2022 Chronic Other aftercare (1 source) Other chcf (current) drug therapy; Translations: [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] Onset: 08-18-2022 Episodic Other ear and sense organ disorders (1 source) Unspecified hearing loss, right ear; Translations: [UNSPECIFIED HEARING LOSS RIGHT EAR] Onset: 03-15-2022 Chronic Other nervous system disorders (2 sources) Abnormal gait; Translations: [Unspecified abnormalities of gait and mobility] Onset: 07-15-2023 07-15-2023 Episodic Other non-traumatic joint disorders (2 sources) Joint pain; Translations: [Pain in unspecified joint] Onset: 07-15-2023 07-15-2023 Episodic Residual codes; unclassified (2 sources) Edema of foot; Translations: [Localized edema] Onset: 07-15-2023 07-15-2023 Episodic Rheumatoid arthritis and related disease (5 sources) Rheumatoid arthritis with rheumatoid factor of multiple sites without organ or systems involvement; Translations: [Rheumatoid arthritis, unspecified] Onset: 03-15-2022 Chronic Thyroid disorders (3 sources) Hypothyroidism, unspecified; Translations: [Hypothyroidism] Onset: 03-15-2022 07-15-2023 Chronic Past or Other Problems Problem Classification [...] Onset: 03-15-2022 Episodic Other aftercare (1 source) penitentiary (current) use of aspirin; Translations: [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 Jasbir Ocampo ATYPICAL LYMPH % Normal [facility] Comment on above: Performed By: #### C RUSS #### [facility] [address] [place] [address] Dr. Jasbir Ocampo BAND # 0.0 103/ul Normal 0.0-0.3 [facility] Comment on above: Performed By: #### C RUSS #### [facility] [address] [place] [address] Dr. Jasbir Ocampo BAND % 0 % Normal 0-5 [facility] Comment on above: Performed By: #### C RUSS #### [facility] [address] [place] [address] Dr. Jasbir Ocampo BASOM # 0.00 103/ul Normal 0.00-0.10 [facility] Comment on above: Performed By: #### C RUSS #### [facility] [address] [address] [address] Jasbir Ocampo BASOM % 0.0 % Critically low 0.2-2.0 [facility] Comment on above: Performed By: #### C RUSS #### [facility] [address] [place] [address] Dr. Jasbir Ocampo BLAST # Normal [facility] Comment on above: Performed By: #### C BCKELLY #### [facility] [address] [place] [address] Dr. Jasbir Ocampo BLAST % Normal [facility] Comment on above: Performed By: #### C RUSS #### [facility] [address] [place] [address] Dr. Jasbir Ocampo CORRECTED WBC Normal 4.0-11.0 [facility] Comment on above: Performed By: #### C RUSS #### [facility] [address] [place] [address] Dr. Jasbir Ocampo EOS # 0.05 103/ul Normal 0.00-0.70 [facility] Comment on above: Performed By: #### C RUSS #### [facility] [address] [place] [address] Dr. Jasbir Ocampo EOS% 1.0 % Normal 0.9-7.0 [facility] Comment on above: Performed By: #### C RUSS #### [facility] [address] [place] [address] Dr. Jasbir Ocampo HCT 42.5 % Normal 42.0-54.0 [facility] Comment on above: Performed By: #### C RUSS #### [facility] [address] [place] [address] Dr. Jasbir Ocampo HGB 14.2 g/dl Normal 14.0-18.0 [facility] Comment on above: Performed By: #### C RUSS #### [facility] [address] [place] [address] Dr. Jasbir Ocampo LYMPHM # 2.02 103/ul Normal 1.20-3.80 [facility] Comment on above: Performed By: #### C RUSS #### [facility] [address] [place] [address] Dr. Jasbir Ocampo LYMPHM% 43.0 % Normal 20.5-60.0 [facility] Comment on above: Performed By: #### C RUSS #### [facility] [address] [place] [address] Dr. Jasbir Ocampo MCH 32.1 pg Normal 25.9-34.0 [facility] Comment on above: Performed By: #### C RUSS #### [facility] [address] [place] [address] Dr. Jasbir Ocampo MCHC 33.4 g/dl Normal 29.9-35.2 [facility] Comment on above: Performed By: #### C RUSS #### [facility] [address] [place] [address] Dr. Jasbir Ocampo MCV 96.2 fL Critically high 80.0-94.0 [facility] Comment on above: Performed By: #### C RUSS #### [facility] [address] [place] [address] Dr. Jasbir Ocampo METAMYELOCYTE # Normal [facility] Comment on above: Performed By: #### C RUSS #### [facility] [address] [place] [address] Dr. Jasbir Ocampo METAMYELOCYTE % Normal [facility] Comment on above: Performed By: #### C RUSS #### [facility] [address] [place] [address] Dr. Jasbir Ocampo MONOM# 0.09 103/ul Critically low 0.30-0.80 [facility] Comment on above: Performed By: #### C RUSS #### [facility] [address] [place] [address] Dr. Jasbir Ocampo MONOM% 2.0 % Normal 1.7-12.0 [facility] Comment on above: Performed By: #### C RUSS #### [facility] [address] [place] [address] Dr. Jasbir Ocampo MPV 9.8 fL Normal 9.5-13.5 [facility] Comment on above: Performed By: #### C RUSS #### [facility] [address] [place] [address] Dr. Jasbir Ocampo MYELOCYTE # Normal [facility] Comment on above: Performed By: #### C RUSS #### [facility] [address] [place] [address] Dr. Jasbir Ocampo MYELOCYTE % Normal [facility] Comment on above: Performed By: #### C RUSS #### [facility] [address] [place] [address] Dr. Jasbir Ocampo NRBC Normal [facility] Comment on above: Performed By: #### C RUSS #### [facility] [address] [place] [address] Dr. Jasbir Ocampo PLT 171 103/ul Normal 150-450 [facility] Comment on above: Performed By: #### C RUSS #### [facility] [address] [place] [address] Dr. Jasbir Ocampo RBC 4.42 106/ul Critically low 4.70-6.10 [facility] Comment on above: Performed By: #### C RUSS #### [facility] [address] [place] [address] Dr. Jasbir Ocampo RDW 13.4 % Normal 11.0-15.0 [facility] Comment on above: Performed By: #### C RUSS #### [facility] [address] [place] [address] Dr. Jasbir Ocampo SEG # 2.54 103/ul Normal 1.40-6.50 [facility] Comment on above: Performed By: #### C RUSS #### [facility] [address] [place] [address] Dr. Jasbir Ocampo SEG % 54.0 % Normal 43.0-75.0 [facility] Comment on above: Performed By: #### C RUSS #### [facility] [address] [place] [address] Dr. Jasbir Ocampo WBC 4.7 103/ul Normal 4.0-11.0 [facility] Comment on above: Performed By: #### C RUSS #### [facility] [address] [place] [address] Dr. Jasbir Ocampo PROF 14(COMP METB)on 023 Albumin [Mass/Vol] 3.5 g/dL Normal 3.4-5.0 [facility] Comment on above: Performed By: #### C MP, CK #### [facility] [address] [place] [address] Dr. Jasbir Ocampo Albumin/Globulin [Mass ratio] 0.9 {ratio} Normal [facility] Comment on above: Performed By: #### C MP, CK #### [facility] [address] [place] [address] Dr. Jasbir Ocampo ALP [Catalytic activity/Vol] 71 U/L Normal 46-116 [facility] Comment on above: Performed By: #### C MP, CK #### [facility] [address] [place] [address] Dr. Jasbir Ocampo ALT [Catalytic activity/Vol] 32 U/L Normal 16-63 [facility] Comment on above: Performed By: #### C MP, CK #### [facility] [address] [place] [address] Dr. Jasbir Ocampo Anion gap [Moles/Vol] 11.2 mmol/L Normal [facility] Comment on above: Performed By: #### C MP, CK #### [facility] [address] [place] [address] Dr. Jasbir Ocampo AST [Catalytic activity/Vol] 21 U/L Normal 15-37 [facility] Comment on above: Performed By: #### C MP, CK #### [facility] [address] [place] [address] Dr. Jasbir Ocampo Bilirubin [Mass/Vol] 0.6 mg/dL Normal 0.2-1.0 [facility] Comment on above: Performed By: #### C MP, CK #### [facility] [address] [place] [address] Dr. Jasbir Ocampo Calcium [Mass/Vol] 8.7 mg/dL Normal 8.5-10.1 [facility] Comment on above: Performed By: #### C MP, CK #### [facility] [address] [address] [address] Jasbir Ocampo Chloride [Moles/Vol] 104 mmol/L Normal 98-107 [facility] Comment on above: Performed By: #### C MP, CK #### [facility] [address] [address] [address] Jasbir Ocampo CO2 [Moles/Vol] 26.9 mmol/L Normal 21.0-32.0 [facility] Comment on above: Performed By: #### C MP, CK #### [facility] [address] [place] [address] Dr. Jasbir Ocampo Creatinine [Mass/Vol] 1.21 mg/dL Normal 0.70-1.30 [facility] Comment on above: Performed By: #### C MP, CK #### [facility] [address] [place] [address] Dr. Jasbir Ocampo EGFR-AF CANADIAN >60 Normal >=60 [facility] Comment on above: Performed By: #### C MP, CK #### [facility] [address] [place] [address] Dr. Jasbir Ocampo EGFR-NON AF CANADIAN 57 mL/min/1.73m2 Critically low >=60 [facility] Comment on above: Performed By: #### C MP, CK #### [facility] [address] [address] [address] Jasbir Ocampo Globulin (S) [Mass/Vol] 3.7 g/dL Normal [facility] Comment on above: Performed By: #### C MP, CK #### [facility] [address] [place] [address] Dr. Jasbir Ocampo Glucose [Mass/Vol] 86 mg/dL Normal 74-106 [facility] Comment on above: Performed By: #### C MP, CK #### [facility] [address] [place] [address] Dr. Jasbir Ocampo Potassium [Moles/Vol] 4.1 mmol/L Normal 3.5-5.1 [facility] Comment on above: Performed By: #### C MP, CK #### [facility] [address] [place] [address] Dr. Jasbir Ocampo Protein [Mass/Vol] 7.2 g/dL Normal 6.4-8.2 [facility] Comment on above: Performed By: #### C MP, CK #### [facility] [address] [address] [address] Jasbir Ocampo Sodium [Moles/Vol] 138 mmol/L Normal 136-145 [facility] Comment on above: Performed By: #### C MP, CK #### [facility] [address] [place] [address] Dr. Jasbir Ocampo Urea nitrogen [Mass/Vol] 18.0 mg/dL Normal 7.0-18.0 [facility] Comment on above: Performed By: #### C MP, CK #### [facility] [address] [place] [address] Dr. Jasbir Ocampo Urea nitrogen/Creatinine [Mass ratio] 14.9 mg/mg Normal [facility] Comment on above: Performed By: #### C MP, CK #### [facility] [address] [place] [address] Dr. Jasbir Ocampo SED RATE [facility] 2022 SED RATE 13 mm/hr Normal <=20 [facility] Comment on above: Performed By: #### S EDR #### [facility] [address] [place] [address] Dr. Jasbir Ocampo XR KNEE RT 4V [...] CELESTE CREWS Date: 2022-03-13 11:27 Normal [facility] CBC AUTO DIFFon 03-11-2022 BASO # 0.0 103/ul Normal 0.0-0.1 [facility] Comment on above: Performed By: #### C BC #### [facility] [address] [address] [address] Jasbir Ocampo Basophils/100 WBC (Bld) 0.5 % Normal 0.2-2.0 [facility] Comment on above: Performed By: #### C BC #### [facility] [address] [address] [address] Jasbir Ocampo EO # 0.2 103/ul Normal 0.0-0.7 [facility] Comment on above: Performed By: #### C BC #### [facility] [address] [address] [address] Jasbir Ocampo Eosinophils/100 WBC (Bld) 2.8 % Normal 0.9-7.0 [facility] Comment on above: Performed By: #### C BC #### [facility] [address] [address] [address] Jasbir Ocampo Erythrocyte distribution width (RBC) [Ratio] 14.0 % Normal 11.0-15.0 [facility] Comment on above: Performed By: #### C BC #### [facility] [address] [address] [address] Jasbir Ocampo Hematocrit (Bld) [Volume fraction] 42.8 % Normal 42.0-54.0 [facility] Comment on above: Performed By: #### C BC #### [facility] [address] [address] [address] Jasbir Ocampo Hemoglobin (Bld) [Mass/Vol] 14.1 g/dL Normal 14.0-18.0 [facility] Comment on above: Performed By: #### C BC #### [facility] [address] [address] [address] Jasbir Ocampo IG # 0.04 10e3/ul Critically high 0.00-0.03 [facility] Comment on above: Performed By: #### C BC #### [facility] [address] [address] [address] Jasbir Ocampo IG % 0.7 % Critically high 0.0-0.5 [facility] Comment on above: Performed By: #### C BC #### [facility] [address] [place] [address] Dr. Jasbir Ocampo LYMPH # 2.5 103/ul Normal 1.2-3.8 [facility] Comment on above: Performed By: #### C BC #### [facility] [address] [place] [address] Dr. Jasbir Ocampo Lymphocytes/100 WBC (Bld) 44.1 % Normal 20.5-60.0 [facility] Comment on above: Performed By: #### C BC #### [facility] [address] [place] [address] Dr. Jasbir Ocampo MANUAL DIFF REQ NO Normal [facility] Comment on above: Performed By: #### C BC #### [facility] [address] [place] [address] Dr. Jasbir Ocampo MCH (RBC) [Entitic mass] 31.2 pg Normal 25.9-34.0 [facility] Comment on above: Performed By: #### C BC #### [facility] [address] [place] [address] Dr. Jasbir Ocampo MCHC (RBC) [Mass/Vol] 32.9 g/dL Normal 29.9-35.2 [facility] Comment on above: Performed By: #### C BC #### [facility] [address] [place] [address] Dr. Jasbir Ocampo MCV (RBC) [Entitic vol] 94.7 fL Critically high 80.0-94.0 [facility] Comment on above: Performed By: #### C BC #### [facility] [address] [place] [address] Dr. Jasbir Ocampo MONO # 0.5 103/ul Normal 0.3-0.8 [facility] Comment on above: Performed By: #### C BC #### [facility] [address] [address] [address] Jasbir Ocampo Monocytes/100 WBC (Bld) 7.8 % Normal 1.7-12.0 [facility] Comment on above: Performed By: #### C BC #### [facility] [address] [address] [address] Jasbir Ocampo NEUT # 2.5 103/ul Normal 1.4-6.5 [facility] Comment on above: Performed By: #### C BC #### [facility] [address] [address] [address] Jasbir Ocampo Neutrophils/100 WBC (Bld) 44.1 % Normal 43.0-75.0 [facility] Comment on above: Performed By: #### C BC #### [facility] [address] [place] [address] Dr. Jasbir Ocampo Platelet mean volume (Bld) [Entitic vol] 10.3 fL Normal 9.5-13.5 [facility] Comment on above: Performed By: #### C BC #### [facility] [address] [place] [address] Dr. Jasbir Ocampo PLT 238 103/ul Normal 150-450 [facility] Comment on above: Performed By: #### C BC #### [facility] [address] [place] [address] Dr. Jasbir Ocampo RBC 4.52 106/ul Critically low 4.70-6.10 [facility] Comment on above: Performed By: #### C BC #### [facility] [address] [place] [address] Dr. Jasbir Ocampo WBC 5.7 103/ul Normal 4.0-11.0 [facility] Comment on above: Performed By: #### C BC #### [facility] [address] [place] [address] Dr. Jasbir Ocampo CPKon 03-11-2022 CK [Catalytic activity/Vol] 130 U/L Normal 39-308 [facility] Comment on above: Performed By: #### C MP, CK #### [facility] [address] [address] [address] Jasbir Ocampo PROF 14(COMP METB)on 022 Albumin [Mass/Vol] 3.3 g/dL Critically low 3.4-5.0 [facility] Comment on above: Performed By: #### C MP, CK #### [facility] [address] [address] [address] Jasbir Ocampo Albumin/Globulin [Mass ratio] 0.8 {ratio} Normal [facility] Comment on above: Performed By: #### C MP, CK #### [facility] [address] [address] [address] Jasbir Ocampo ALP [Catalytic activity/Vol] 74 U/L Normal 46-116 [facility] Comment on above: Performed By: #### C MP, CK #### [facility] [address] [place] [address] Dr. Jasbir Ocampo ALT [Catalytic activity/Vol] 22 U/L Normal 16-63 [facility] Comment on above: Performed By: #### C MP, CK #### [facility] [address] [place] [address] Dr. Jasbir Ocampo Anion gap [Moles/Vol] 11.5 mmol/L Normal [facility] Comment on above: Performed By: #### C MP, CK #### [facility] [address] [place] [address] Dr. Jasbir Ocampo AST [Catalytic activity/Vol] 20 U/L Normal 15-37 [facility] Comment on above: Performed By: #### C MP, CK #### [facility] [address] [address] [address] Jasbir Ocampo Bilirubin [Mass/Vol] 0.5 mg/dL Normal 0.2-1.0 [facility] Comment on above: Performed By: #### C MP, CK #### [facility] [address] [address] [address] Jasbir Ocampo Calcium [Mass/Vol] 8.8 mg/dL Normal 8.5-10.1 [facility] Comment on above: Performed By: #### C MP, CK #### [facility] [address] [address] [address] Jasbir Ocampo Chloride [Moles/Vol] 102 mmol/L Normal 98-107 [facility] Comment on above: Performed By: #### C MP, CK #### [facility] [address] [place] [address] Dr. Jasbir Ocampo CO2 [Moles/Vol] 27.5 mmol/L Normal 21.0-32.0 [facility] Comment on above: Performed By: #### C MP, CK #### [facility] [address] [place] [address] Dr. Jasbir Ocampo Creatinine [Mass/Vol] 0.99 mg/dL Normal 0.70-1.30 [facility] Comment on above: Performed By: #### C MP, CK #### [facility] [address] [place] [address] Dr. Jasbir Ocampo EGFR-AF CANADIAN >60 Normal >=60 [facility] Comment on above: Performed By: #### C MP, CK #### [facility] [address] [place] [address] Dr. Jasbir Ocampo EGFR-NON AF CANADIAN >60 Normal >=60 [facility] Comment on above: Performed By: #### C MP, CK #### [facility] [address] [place] [address] Dr. Jasbir Ocampo Globulin (S) [Mass/Vol] 4.1 g/dL Normal [facility] Comment on above: Performed By: #### C MP, CK #### [facility] [address] [place] [address] Dr. Jasbir Ocampo Glucose [Mass/Vol] 90 mg/dL Normal 74-106 [facility] Comment on above: Performed By: #### C MP, CK #### [facility] [address] [place] [address] Dr. Jasbir Ocampo Potassium [Moles/Vol] 4.0 mmol/L Normal 3.5-5.1 [facility] Comment on above: Performed By: #### C MP, CK #### [facility] [address] [place] [address] Dr. Jasbir Ocampo Protein [Mass/Vol] 7.4 g/dL Normal 6.4-8.2 [facility] Comment on above: Performed By: #### C MP, CK #### [facility] [address] [address] [address] Jasbir Ocampo Sodium [Moles/Vol] 137 mmol/L Normal 136-145 [facility] Comment on above: Performed By: #### C MP, CK #### [facility] [address] [place] [address] Dr. Jasbir Ocampo Urea nitrogen [Mass/Vol] 21.0 mg/dL Critically high 7.0-18.0 [facility] Comment on above: Performed By: #### C MP, CK #### [facility] [address] [place] [address] Dr. Jasbir Ocampo Urea nitrogen/Creatinine [Mass ratio] 21.2 mg/mg Normal [facility] Comment on above: Performed By: #### C MP, CK #### [facility] [address] [place] [address] Dr. Jasbir [facility]camp[facility] 43 mm/hr Critically high <=20 [facility] Comment on above: Performed By: #### S EDR #### [facility] [address] [place] [address] Dr. Jasbir Ocampo CBC AUTO DIFFon 10-28-2021 BASO # 0.0 103/ul Normal 0.0-0.1 [facility] Comment on above: Performed By: #### C MP, CK #### [facility] [address] [place] [address] Dr. Jasbir Ocampo Basophils/100 WBC (Bld) 0.6 % Normal 0.2-2.0 [facility] Comment on above: Performed By: #### C MP, CK #### [facility] [address] [place] [address] Dr. Jasbir Ocampo EO # 0.1 103/ul Normal 0.0-0.7 [facility] Comment on above: Performed By: #### C MP, CK #### [facility] [address] [place] [address] Dr. Jasbir Ocampo Eosinophils/100 WBC (Bld) 2.3 % Normal 0.9-7.0 [facility] Comment on above: Performed By: #### C MP, CK #### [facility] [address] [place] [address] Dr. Jasbir Ocampo Erythrocyte distribution width (RBC) [Ratio] 13.7 % Normal 11.0-15.0 [facility] Comment on above: Performed By: #### C MP, CK #### [facility] [address] [place] [address] Dr. Jasbir Ocampo Hematocrit (Bld) [Volume fraction] 41.8 % Critically low 42.0-54.0 [facility] Comment on above: Performed By: #### C MP, CK #### [facility] [address] [place] [address] Dr. Jasbir Ocampo Hemoglobin (Bld) [Mass/Vol] 13.8 g/dL Critically low 14.0-18.0 [facility] Comment on above: Performed By: #### C MP, CK #### [facility] [address] [place] [address] Dr. Jasbir Ocampo IG # 0.02 10e3/ul Normal 0.00-0.03 [facility] Comment on above: Performed By: #### C MP, CK #### [facility] [address] [place] [address] Dr. Jasbir Ocampo IG % 0.4 % Normal 0.0-0.5 [facility] Comment on above: Performed By: #### C MP, CK #### [facility] [address] [place] [address] Dr. Jasbir Ocampo LYMPH # 1.8 103/ul Normal 1.2-3.8 [facility] Comment on above: Performed By: #### C MP, CK #### [facility] [address] [place] [address] Dr. Jasbir Ocampo Lymphocytes/100 WBC (Bld) 36.7 % Normal 20.5-60.0 [facility] Comment on above: Performed By: #### C MP, CK #### [facility] [address] [place] [address] Dr. Jasbir cOampo MANUAL DIFF REQ NO Normal [facility] Comment on above: Performed By: #### C MP, CK #### [facility] [address] [place] [address] Dr. Jasbir Ocampo MCH (RBC) [Entitic mass] 31.9 pg Normal 25.9-34.0 [facility] Comment on above: Performed By: #### C MP, CK #### [facility] [address] [place] [address] Dr. Jasbir Ocampo MCHC (RBC) [Mass/Vol] 33.0 g/dL Normal 29.9-35.2 [facility] Comment on above: Performed By: #### C MP, CK #### [facility] [address] [place] [address] Dr. Jasbir Ocampo MCV (RBC) [Entitic vol] 96.8 fL Critically high 80.0-94.0 [facility] Comment on above: Performed By: #### C MP, CK #### [facility] [address] [place] [address] Dr. Jasbir Ocampo MONO # 0.4 103/ul Normal 0.3-0.8 [facility] Comment on above: Performed By: #### C MP, CK #### [facility] [address] [place] [address] Dr. Jasbir Ocampo Monocytes/100 WBC (Bld) 9.0 % Normal 1.7-12.0 [facility] Comment on above: Performed By: #### C MP, CK #### [facility] [address] [place] [address] Dr. Jasbir Ocampo NEUT # 2.5 103/ul Normal 1.4-6.5 [facility] Comment on above: Performed By: #### C MP, CK #### [facility] [address] [place] [address] Dr. Jasbir Ocampo Neutrophils/100 WBC (Bld) 51.0 % Normal 43.0-75.0 [facility] Comment on above: Performed By: #### C MP, CK #### [facility] [address] [place] [address] Dr. Jasbir Ocampo Platelet mean volume (Bld) [Entitic vol] 10.0 fL Normal 9.5-13.5 [facility] Comment on above: Performed By: #### C MP, CK #### [facility] [address] [place] [address] Dr. Jasbir Ocampo PLT 192 103/ul Normal 150-450 [facility] Comment on above: Performed By: #### C MICHELA, CK #### [facility] [address] [place] [address] Dr. Jasbir Ocampo RBC 4.32 106/ul Critically low 4.70-6.10 [facility] Comment on above: Performed By: #### C MICHELA, CK #### [facility] [address] [place] [address] Dr. Jasbir Ocampo WBC 4.9 103/ul Normal 4.0-11.0 [facility] Comment on above: Performed By: #### C MICHELA, CK #### [facility] [address] [place] [address] Dr. Jasbir Ocampo CPKon 10-28-2021 CK [Catalytic activity/Vol] 163 U/L Normal 39-308 [facility] Comment on above: Performed By: #### C MICHELA, CK #### [facility] [address] [place] [address] Dr. Jasbir Ocampo PROF 14(COMP METB)on 022 Albumin [Mass/Vol] 3.6 g/dL Normal 3.4-5.0 [facility] Comment on above: Performed By: #### C MP, CK #### [facility] [address] [place] [address] Dr. Jasbir Ocampo Albumin/Globulin [Mass ratio] 1.1 {ratio} Normal [facility] Comment on above: Performed By: #### C MP, CK #### [facility] [address] [address] [address] Jasbir Ocampo ALP [Catalytic activity/Vol] 71 U/L Normal 46-116 [facility] Comment on above: Performed By: #### C MP, CK #### [facility] [address] [place] [address] Dr. Jasbir Ocampo ALT [Catalytic activity/Vol] 24 U/L Normal 16-63 [facility] Comment on above: Performed By: #### C MP, CK #### [facility] [address] [address] [address] Jasbir Ocampo Anion gap [Moles/Vol] 14.2 mmol/L Normal [facility] Comment on above: Performed By: #### C MP, CK #### [facility] [address] [place] [address] Dr. Jasbir Ocampo AST [Catalytic activity/Vol] 17 U/L Normal 15-37 [facility] Comment on above: Performed By: #### C MP, CK #### [facility] [address] [place] [address] Dr. Jasbir cOampo Bilirubin [Mass/Vol] 0.6 mg/dL Normal 0.2-1.0 [facility] Comment on above: Performed By: #### C MP, CK #### [facility] [address] [place] [address] Dr. Jasbir Ocampo Calcium [Mass/Vol] 8.9 mg/dL Normal 8.5-10.1 [facility] Comment on above: Performed By: #### C MP, CK #### [facility] [address] [place] [address] Dr. Jasbir Ocampo Chloride [Moles/Vol] 105 mmol/L Normal 98-107 [facility] Comment on above: Performed By: #### C MP, CK #### [facility] [address] [place] [address] Dr. Jasbir Ocampo CO2 [Moles/Vol] 23.5 mmol/L Normal 21.0-32.0 [facility] Comment on above: Performed By: #### C MP, CK #### [facility] [address] [place] [address] Dr. Jasbir Ocampo Creatinine [Mass/Vol] 1.14 mg/dL Normal 0.70-1.30 [facility] Comment on above: Performed By: #### C MP, CK #### [facility] [address] [place] [address] Dr. Jasbir Ocampo EGFR-AF CANADIAN >60 Normal >=60 [facility] Comment on above: Performed By: #### C MP, CK #### [facility] [address] [place] [address] Dr. Jasbir Ocampo EGFR-NON AF CANADIAN >60 Normal >=60 [facility] Comment on above: Performed By: #### C MP, CK #### [facility] [address] [place] [address] Dr. Jasbir Ocampo Globulin (S) [Mass/Vol] 3.4 g/dL Normal [facility] Comment on above: Performed By: #### C MP, CK #### [facility] [address] [place] [address] Dr. Jasbir Ocampo Glucose [Mass/Vol] 91 mg/dL Normal 74-106 [facility] Comment on above: Performed By: #### C MP, CK #### [facility] [address] [place] [address] Dr. Jasbir Ocampo Potassium [Moles/Vol] 4.7 mmol/L Normal 3.5-5.1 [facility] Comment on above: Performed By: #### C MP, CK #### [facility] [address] [place] [address] Dr. Jasbir Ocampo Protein [Mass/Vol] 7.0 g/dL Normal 6.4-8.2 [facility] Comment on above: Performed By: #### C MP, CK #### [facility] [address] [place] [address] Dr. Jasbir Ocamop Sodium [Moles/Vol] 138 mmol/L Normal 136-145 [facility] Comment on above: Performed By: #### C MP, CK #### [facility] [address] [place] [address] Dr. Jasbir Ocampo Urea nitrogen [Mass/Vol] 20.0 mg/dL Critically high 7.0-18.0 [facility] Comment on above: Performed By: #### C MP, CK #### [facility] [address] [address] [address] Jasbir Ocampo Urea nitrogen/Creatinine [Mass ratio] 17.5 mg/mg Normal [facility] Comment on above: Performed By: #### C MP, CK #### [facility] [address] [address] [address] Jasbir Ocampo SED RATE [facility] 2021 SED RATE 11 mm/hr Normal <=20 [facility] Comment on above: Performed By: #### S EDR #### [facility] [address] [address] [address] Jasbir Ocampo Ambulatory Clinical Summaryo n 10-28-2020 Ambulatory Clinical Summary {[id number]}CD:[id number] Normal [facility] General Surgery Office/Clini c Noteon 10-28-2020 [...] Family History Family history is negative Normal [facility] Comment on above: Result Comment: Elec tronically Signed By: QING LAYTON, Wolf Rao\Date and Time Signed: 10/28/20 13:11 EDT Pathology Noteon 10-21-2020 Pathology Note [id number] 0CD:127 Normal [facility] Ambulatory Clinical Summaryo n 10-16-2020 Ambulatory Clinical Summary {[id number]}CD:[id number] Normal [facility] General Surgery Office/Clini c Noteon 10-16-2020 [...] 10/10/2020 Family History Family history is negative [facility] Comment on above: Result Comment: Elec tronically Signed By: QING LAYTON, Wolf Rao\Date and Time Signed: 10/16/20 09:17 EDT Ambulatory Clinical Summaryo n 10-10-2020 Ambulatory Clinical Summary {[id number]}CD:[id number] Normal [facility] Facesheeton 10-10-2020 Facesheet [id number] 0CD:127 [facility] Insurance Correspondence Off iceon 10-10-2020 Insurance Correspondence Office [id number]:127 [facility] Consultation Noteon 10-09-19 Consultation Note [id number] 0CD:127 [facility] Vital Signs Date Time Vital Sign Value Performing Clinician Facility 07-15-2023 15:35-0400 Body height 177.8 cm Podcast Ready DO Work Phone: [facility] 07-15-2023 15:35-0400 Body mass index (BMI) [Ratio] 24.88 kg/m2 Podcast Ready DO Work Phone: [facility] 07-15-2023 15:35-0400 Body temperature 98.01 [degF] Podcast Ready [facility] 07-15-2023 15:35-0400 Body weight 78.65 kg Podcast Ready DO Work Phone: [facility] 07-15-2023 15:35-0400 Diastolic blood pressure 91 mm[Hg] Podcast Ready DO Work Phone[facility] 07-15-2023 15:35-0400 Heart rate 74 /min Naresh Altman DO Work Phone: [facility] 07-15-2023 15:35-0400 Respiratory rate 16 /min Naresh Altman DO Work Phone: [facility] 07-15-2023 15:35-0400 SaO2% (BldA) [Mass fraction] 94 % Naresh Altman DO Work Phone: [facility] 07-15-2023 15:35-0400 Systolic blood pressure 151 mm[Hg] Naresh Altman DO Work Phone: [facility] Encounters Encounter Date Encounter Type Care Provider Facility Start: 07-15-2023 ambulatory Naresh rebolledo DO Work Phone: [facility] Comment on above: Influenza A (Primary Dx); Pneumonia due to influenza A virus; Chronic obstructive pulmonary disease, unspecified COPD type ([facility] Thrombocytopenia ([facility]); Stage 3 chronic kidney disease, unspecified whether stage 3a or 3b CKD (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 Facility:[facility] Start: 03-11-2022 End: 03-12-[address] DOCTOR SEYMOUR Facility:[facility] Start: 10-28-2021 End: 10-29-[address] JELLY KAUR Facility:[facility] Plan of Treatment Date Care Activity Detail Author Start: 12-11-2023 Influenza vaccination Influenza Vaccine [facility] Start: 01-26-2001 Fall Risk Screening Fall Risk Screening [facility] Start: 01-26-1986 Administration of varicella zoster vaccine Zoster (Shingles) Vaccine (1 of 2) [facility] Start: 01-26-1955 DTaP,Tdap and Td Vaccines (1 - Tdap) DTaP,Tdap and Td Vaccines (1 - Tdap) [facility] Start: 01-26-1954 Adult BMI Screening Adult BMI Screening [facility] Start: 1948 Depression Screening Depression Screening [facility] Start: 1948 Tobacco Screening Tobacco Screening [facility] Start: 1936 Medicare Annual Wellness Visit Medicare Annual Wellness Visit [facility] Payers Date Payer Category Payer Private Health Insurance [facility] AARP SUPPLEMENT [id number] 2016-Present [phone] [address] [place] [address] [id number] 2001 Medicare MEDICARE MEDICAR E PART A & B [id number] 2001-Present [phone] [address] [place] [address] [id number] 1959 Medicare [id number] 1959 Private Health Insurance CLI [id number] 1959 Self-pay 1936 Unknown [id number] 1936 Unknown [id number] 1936 Unknown [id number] 1936 Unknown [id number] 1936 Unknown [id number] Social History Date Type Detail Facility Start: 07-15-2023 Tobacco smoking stat us NHIS Ex-smoker [facility] End: 04-11-1994 History of tobacco use Current smoker [facility] End: 04-11-1994 History of tobacco use Cigarette Smoker [facility] Start: 05-22-2020 End: 07-15-2023 Cigarettes smoked current (pack per day) - Reported 1 [facility] Start: 07-15-2023 Tobacco use and exposure Smokeless tobacco non-user [facility] Start: 07-15-2023 Alcohol intake Current drinke r of alcohol (finding) [facility] Start: 05-22-2020 End: 07-15-2023 Tobacco use panel [facility] Childcare Unknown [facility] Start: 1935 Sex Assigned At Not on file [facility] History of Present illness Narrative 07-15-2023 Naresh Altman, DO - 07/15/2023 3:35 PM EDT Note Date & Type Note Facility 07-15-2023 History of Present illness Narrative Patient Name: Adams Noble Date of : 1935 Date of Service: 07/15/2023 Facility: [facility] Type of Visit: Admission H&P Subjective Adams Noble is a 88 y.o. male seen today at snf facility for admission H&P. Adams presents to [facility] for therapies. He was recently admitted to [facility] for influenza A pneumonia. He also has known COPD. He spent a couple days there and was sent here for therapies. He is weak. He was ambulating on own without assistive devices but now needs a walker. He is hoping to go home without any assistive devices. He has a few steps to get into house. His washer and dryer and shower is in the basement. He lives alone. He fell recently at home and was able to get up himself but it was difficult. He is still coughing but it is nonproductive. He is SOB. The nebulizer helps. He was taking fluticasone inhaler 250 mcg 2 puffs BID from the [place] but has not been taking it. He would like to restart it. 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 He takes plaquenil, tylenol and tramadol for pain. He is only getting tramadol now and would like the other 2. He is also having a lot of swelling in his legs. He doesn't have any known heart failure. He had a CABG in 1998-double bypass. He also has a lot of bruising on arms and legs. Dr. Sims prescribes tramadol and [facility] Past Medical History: Diagnosis Date Arthritis Hypercholesterolemia Hypothyroid Past Surgical History: Procedure Laterality Date APPENDECTOMY CARDIAC SURGERY DOUBLE BYPASS COLONOSCOPY HERNIA REPAIR REPLACEMENT TOTAL KNEE Left TONSILLECTOMY VASECTOMY Family History Problem Relation Age of Onset Prostate cancer Father Allergies: Patient has no known allergies. Code Status: FULL CODE The following portions of the patient's history were reviewed and updated as appropriate: allergies, current medications, past family history, past medical history, past social history, past surgical history, problem list, and medication reconciliation was completed including current medication and post discharge medication. Review of Systems Constitutional: Positive for activity change. Negative for appetite change. HENT: Positive for hearing loss. Eyes: Negative. Respiratory: Positive for cough, shortness of breath and wheezing. Cardiovascular: Positive for leg swelling. Negative for chest pain and palpitations. Gastrointestinal: Negative. Genitourinary: Negative. Musculoskeletal: Positive for arthralgias and gait problem. Skin: Positive for color change (bruises on arms and legs). Neurological: Positive for weakness. Psychiatric/Behavioral: Positive for sleep disturbance. Objective BP (!) 151/91 Pulse 74 Temp 36.7 C (98 F) Resp 16 Ht 177.8 cm (5' 10 ) Wt 78.7 kg (173 lb 6.4 oz) SpO2 94% BMI 24.88 kg/m Physical Exam Vitals reviewed. Exam conducted with a transformation analyst present (daughter and grand-daughter). Constitutional: General: He is not in acute distress. Appearance: He is normal weight. HENT: Head: Normocephalic. Eyes: General: No scleral icterus. Extraocular Movements: Extraocular movements intact. Conjunctiva/sclera: Conjunctivae normal. Cardiovascular: Rate and Rhythm: Normal rate and regular rhythm. Heart sounds: Normal heart sounds. No murmur heard. Pulmonary: Effort: No respiratory distress. Breath sounds: Wheezing and rhonchi present. No rales. Abdominal: General: Bowel sounds are normal. Palpations: Abdomen is soft. Tenderness: There is no abdominal tenderness. Musculoskeletal: Right lower le+ Pitting Edema present. Left lower le+ Pitting Edema present. Skin: General: Skin is warm. Findings: Bruising present. Neurological: General: No focal deficit present. Mental Status: He is alert and oriented to person, place, and time. Cranial Nerves: Cranial nerves 2-12 are intact. Gait: Gait abnormal. Psychiatric: Attention and Perception: Attention normal. Mood and Affect: Mood and affect normal. Speech: Speech normal. Behavior: Behavior normal. Behavior is cooperative. Thought Content: Thought content normal. Cognition and Memory: Cognition normal. Judgment: Judgment normal. Assessment/Plan Summary / Assessment / Plan 1. Influenza A 2. Pneumonia due to influenza A virus 3. Chronic obstructive pulmonary disease, unspecified COPD type ([facility]) 4. Thrombocytopenia ([facility]) 5. Stage 3 chronic kidney disease, unspecified whether stage 3a or 3b CKD ([facility]) 6. Gastroesophageal reflux disease, unspecified whether esophagitis present 7. Hypothyroidism, unspecified type 8. Hyperlipidemia, unspecified hyperlipidemia type 9. Abnormality of gait and mobility 10. Severe persistent asthma with exacerbation 11. 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 Arthralgia, unspecified joint Admit for therapies. Will rx knee high compression hose 20-30 mm Hg daily. Restart plaquenil 200mg BID, fluticasone 250 mcg 2 puffs BID and tylenol 325mg 2 Q6hrs prn pain. Check CBC and CMP. Full code. Fair to good rehab potential. ELECTRONICALLY SIGNED BY: Naresh Altman DO documented in this encounter [facility] Clinical Note 10-10-2020 Note Date & Type Note Facility 10-10-2020 Note HPI Staff patient here from referral from Dr Sims for 7 day hx Lt axilla Furuncle [...] 10/10/2020 Family History Family history is negative [facility] Comment on above: Result Comment: Elec tronically Signed By: QING LAYTON, Wolf Rao\Date and Time Signed: 10/10/20 09:30 EDT Evaluation note Note Date & Type Note Facility Evaluation note Diagnosis Influenza A- Primary Influenza with other respiratory manifestations Pneumonia due to influenza A virus Chronic obstructive pulmonary disease, unspecified COPD type ([facility]) Thrombocytopenia ([facility]) Unspecified thrombocytopenia Stage 3 chronic kidney disease, unspecified whether stage 3a or 3b CKD (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 Arthralgia, unspecified joint Pedal edema Edema documented in this encounter [facility] Health System Instructions Note Date & Type Note Facility Instructions Not on filedocumented in this en counter [facility] Summary Purpose Family History No Family History Records FoundNo Family History Records Found Advance Directives No Advanced Directives Records FoundNo Advanced Directives Records Found Additional Source Comments (unrecognized sect ion and content) No Status Records FoundNo Status Records Found INFORMATION SOURCE (unrecogn ized section and content) DATE CREATED AUTHOR 10/29/2020 [facility] DATE CREATED AUTHOR AUTHOR'S ORGANIZ ATION 08/19/2022 [facility] Care Teams (unrecognized sec tion and content) Camp Coordinator Relationship Specialty Start Date End Date Ike Sims MD [address] [place] [address] PCP - General 01/26/17 FOR RECORDS PERTAINING TO PATIENTS WHO ARE [...] BE BASED ON THE PRIMARY CLINICAL RECORDS. [facility]. provides no warranty or guarantee of the accuracy or completeness of information in this document.
--- NOTE | 2023-08-08 19:49 | XR_ITS ---
The [address] [address] Patient Name: BART FLETCHER MRN: [id number] date: 1935 Sex: M Assigned Patient Location: ER Current Patient Location: ER Accession/Order Number: [id number] Exam Date: 08/08/2023 21:30 Report Date: 08/08/2023 22:31 At the request of: IJEOMA VELASCO Procedure: XR foot LT min 3V EXAM: XR foot LT min 3V HISTORY: The patient is an 88-year-old male, swelling COMPARISON: None. FINDINGS: The left foot is radiographically negative with no evidence of fracture, dislocation, joint space narrowing, osteophytes, or other osseous or articular abnormalities. There are no areas of bone destruction, periosteal reaction, or soft tissue gas to radiographically suggest osteomyelitis. XR/XR foot LT min 3V IMPRESSION: Negative. Electronically authenticated by: ROBERTO PATTERSON Date: 08/08/2023 22:31
--- NOTE | 2023-08-08 19:49 | XR_ITS ---
The [address] [address] Patient Name: BART FLETCHER MRN: [id number] date: 1935 Sex: M Assigned Patient Location: ER Current Patient Location: ER Accession/Order Number: [id number] Exam Date: 08/08/2023 21:30 Report Date: 08/08/2023 22:30 At the request of: IJEOMA VELASCO Procedure: XR hip LT 2V w/ pelvis EXAM: XR hip LT 2V w/ pelvis HISTORY: The patient is an 88-year-old male, swelling COMPARISON: None. FINDINGS: No displaced fractures are seen within the proximal left femur or elsewhere throughout the bony pelvis. The widths and alignment of both hip joints are maintained. The sacroiliac joints are maintained. The pubic symphysis is maintained. 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 This may contribute to the patient's hip symptoms and could be better evaluated with dedicated lumbar spine imaging. XR/XR hip LT 2V w/ pelvis IMPRESSION: Radiographically negative left hip and pelvis. Electronically authenticated by: ROBERTO PATTERSON Date: 08/08/2023 22:30
--- NOTE | 2023-08-08 19:49 | US_ITS ---
The [address] [address] Patient Name: BRAT FLETCHER MRN: [id number] date: 1935 Sex: M Assigned Patient Location: ER Current Patient Location: ER Accession/Order Number: [id number] Exam Date: 08/08/2023 20:25 Report Date: 08/08/2023 21:54 At the request of: IJEOMA VELASCO Procedure: US venous doppler LE LT ULTRASOUND OF THE LOWER EXTREMITY VENOUS LEFT HISTORY: Extremity edema and pain. COMPARISON: None. TECHNIQUE: Multiple sonographic images are performed of the extremity venous system with both color Doppler and grayscale Doppler. Doppler spectral analysis and color flow were performed of the extremity. FINDINGS: There is no evidence of thrombus within the visualized veins. There is adequate phasic and spontaneous flow. There is adequate compression. There is adequate augmentation. No evidence of DVT within the visualized veins of the visualized extremity. No popliteal fluid collection. US/US venous doppler LE LT IMPRESSION: No evidence of DVT within visualized veins. Electronically authenticated by: BLESSING GILMORE Date: 08/08/2023 21:54
--- NOTE | 2023-08-08 19:51 | ED_ITS ---
HPI HPI - General Adult General Chief complaint: Extremity Problem, Nontraumatic Stated complaint: LOWER EXTREMITY PAIN Time Seen by Provider: 08/08/23 19:30 Source: patient Mode of arrival: Wheelchair Limitations: no limitations History of Present Illness HPI narrative: Patient is an 88-year-old male who presents to the emergency department at his daughter's concern for hip fracture. Patient was recently in rehab facility after being diagnosed with influenza a last month. He is continuing to improve from a respiratory status, but while at the [facility] at the [place] today, his daughter noticed that his left foot was swollen and bruised. He states he takes a baby aspirin daily. He denies any specific fall or injury, but his daughter states that he slid out of bed onto his bottom several days ago. Today his left hip was stiff, this has now resolved at this time, but the patient's daughter was concerned that he may have broken something even though he is able to walk. Patient has no focal medical complaints at this time. He is awake, alert, conversive. He has no pain, he is able to ambulate. Related Data Home Medications ?Medication ?Instructions ?Recorded ?Confirmed doxepin 25 mg capsule 50 mg PO .QHS insomnia 07/10/23 08/08/23 levothyroxine 112 mcg tablet 112 mcg PO .ACB 07/10/23 08/08/23 pantoprazole 40 mg tablet,delayed 40 mg PO .QD 07/10/23 08/08/23 release prednisone 5 mg tablet 5 mg PO .QOD 07/10/23 07/10/23 tramadol 50 mg tablet 50 mg PO BID PRN pain 07/11/23 08/08/23 aspirin 81 mg tablet,delayed 81 mg PO DAILY 08/08/23 08/08/23 release fluocinonide 0.05 % topical topical 08/08/23 ointment glucosamine sulfate 750 mg tablet 1,500 mg PO DAILY 08/08/23 08/08/23 simvastatin 40 mg tablet mg 08/08/23 Previous Rx's ?Medication ?Instructions ?Recorded levofloxacin 500 mg tablet 500 mg PO DAILY 7 days #7 tabs 07/13/23 prednisone 10 mg tablet 40 mg (4 x 10 mg) PO DAILY #32 tabs 07/13/23 tramadol 50 mg tablet 50 mg PO BID PRN pain #60 tabs 07/13/23 Allergies Allergy/AdvReac Type Severity Reaction Status Date / Time No Known Drug Allergies Allergy Verified 08/08/23 19:40 Opioid HPI Opioid Management Most Recent Opioid Data: Last Pain Scale 7 07/13/23 12:00 Last Pain Intensity 0 07/11/23 13:42 Last ORT Total Score 0 07/10/23 17:45 Last ORT Risk Category Low Risk 07/10/23 17:45 Review of Systems ROS Constitutional Denies: fever or chills Ears, nose, mouth, and throat Denies: throat pain or nasal congestion Cardiovascular Denies: chest pain Respiratory Reports: shortness of breath and cough Gastrointestinal Denies: nausea or vomiting Musculoskeletal Reports: extremity pain and extremity swelling; Denies: back pain or neck pain Integumentary/Breast Denies: rash Hematologic/Lymphatic Denies: easy bruising or easy bleeding PFSH PFSH Medical History (Updated 08/08/23 @ 22:34 by HENRY Molina) Low back pain ?M54.50 - Low back pain, unspecified (ICD-10) Asthma exacerbation in COPD ?J44.1 - Chronic obstructive pulmonary disease with (acute) exacerbation (ICD-10) ?J45.901 - Unspecified asthma with (acute) exacerbation (ICD-10) Influenza A ?J10.1 - Influenza due to other identified influenza virus with other respiratory manifestations (ICD-10) Heart attack ?I21.9 - Acute myocardial infarction, unspecified (ICD-10) Coronary atherosclerosis of bypass graft ?I25.810 - Atherosclerosis of coronary artery bypass graft(s) without angina pectoris (ICD-10) Vertigo ?R42 - Dizziness and giddiness (ICD-10) Surgical History (Updated 07/10/23 @ 18:11 by Griselda Levi) H/O inguinal hernia repair ?Z98.890 - Other specified postprocedural states (ICD-10) ?Z87.19 - Personal history of other diseases of the digestive system (ICD-10) History of left knee replacement ?Z96.652 - Presence of left artificial knee joint (ICD-10) History of appendectomy ?Z90.49 - Acquired absence of other specified parts of digestive tract (ICD- 10) Family History (Updated 07/10/23 @ 18:12 by Griselda Levi) Father Family history of cancer Social History Within the past year, how often did you have a drink containing alcohol: never Score interpretation: A score less than 4 is consistent with normal alcohol consumption. Smoking status: Former smoker Non-prescribed substance use: denies use Highest level of school completed/degree received: Associate degree: occupati onal, technical, vocational program Exam Narrative Exam Narrative: Gen.: Awake, alert, in no distress Head: Normocephalic, atraumatic ENT: Moist mucous membranes Respiratory: No respiratory distress, Speaks in full sentences, no wheezing Cardio: Regular rate and rhythm Extremities: Moves extremities equally, Healing ecchymosis noted to the dorsum of the bilateral feet, worse on the left. Left foot is diffusely swollen on the dorsal aspect. 2+ DP pulses bilaterally. Left distal calf is diffusely mildly edematous with no pitting edema. No erythema or tenderness of the calves bilaterally. Patient with no bony tenderness of the left foot, left knee or left hip. Normal hip flexion at the left hip, no bony tenderness. Psych: Normal mood and affect Neuro: No focal neuro deficit Skin: Warm, dry, intact Constitutional Vital Signs, click to edit/add: Last Vital Signs Temp 98.4 F 08/08/23 19:33 Pulse 109 H 08/08/23 19:33 Resp 18 08/08/23 19:33 BP 119/73 08/08/23 19:33 Pulse Ox 91 L 08/08/23 19:33 O2 Del Method Room Air 08/08/23 19:33 Course Vital Signs Vital signs: Vital Signs Temperature 98.4 F 08/08/23 19:33 Pulse Rate 109 H 08/08/23 19:33 Respiratory Rate 18 08/08/23 19:33 Blood Pressure 119/73 08/08/23 19:33 Pulse Oximetry 91 L 08/08/23 19:33 Oxygen Delivery Method Room Air 08/08/23 19:33 Temperature 98.4 F 08/08/23 19:33 Pulse Rate 109 H 08/08/23 19:33 Respiratory Rate 18 08/08/23 19:33 Blood Pressure 119/73 08/08/23 19:33 Pulse Oximetry 91 L 08/08/23 19:33 Oxygen Delivery Method Room Air 08/08/23 19:33 Medical Decision Making MDM Narrative Medical decision making narrative: Patient with no complaints of pain in the ER, lab studies are stable with stable blood counts, normal coagulation, normal BNP and kidney function. Ultrasound with no evidence of DVT. X-rays obtained of the foot and hip with pelvis. Medical Records Medical records reviewed: Yes I reviewed the patient's medical records Lab Data Lab results reviewed: Yes I reviewed the patient's lab results Labs: Lab Results 08/08/23 Range/Units 20:11 WBC 5.9 (4.0-11.0) 10^3/uL RBC 4.08 L (4.70-6.10) 10^6/uL Hgb 13.0 L (14.0-18.0) g/dL Hct 39.1 L (42.0-54.0) % MCV 95.8 H (80.0-94.0) fL MCH 31.9 (25.9-34.0) pg MCHC 33.2 (29.9-35.2) g/dL RDW 13.2 (11.0-15.0) % Plt Count 192 (150-450) 10^3/uL MPV 10.5 (9.5-13.5) fL Seg Neuts % (Manual) 81.0 Band Neutrophils % 1.0 (0-5) % Lymphocytes % (Manual) 10.0 L (20.5-60.0) % Atypical Lymphs % (Man) 2.0 % Monocytes % (Manual) 5.0 (1.7-12.0) % Eosinophils % (Manual) 1.0 (0.9-7.0) % Basophils % (Manual) 0.0 L (0.2-2.0) % Neutrophils # (Manual) 4.77 (1.4-6.5) 10^3/uL Band Neutrophils # 0.1 (0.0-0.3) 10^3/uL Lymphocytes # (Manual) 0.59 L (1.20-3.80) 10^3/uL Abs Atypical Lymphs Man 0.11 Monocytes # (Manual) 0.29 L (0.30-0.80) 10^3/uL Eosinophils # (Manual) 0.05 (0.00-0.70) 10^3/uL Basophils # (Manual) 0.00 (0.00-0.10) 10^3/uL Hypersegmented Neuts 2+ Schistocytes 2+ PT 10.9 (9.0-11.6) sec INR 1.03 Sodium 137 (136-145) mmol/L Potassium 4.3 (3.5-5.1) mmol/L Chloride 101 (98-107) mmol/L Carbon Dioxide 22.7 (21.0-32.0) mmol/L Anion Gap 17.6 BUN 25.0 H (7.0-18.0) mg/dL Creatinine 1.56 H (0.70-1.30) mg/dL Est GFR ( Amer) 51 L (>=60) Est GFR (Non-Af Amer) 42 L (>=60) BUN/Creatinine Ratio 16.0 Glucose 98 (74-106) mg/dL Calcium 8.7 (8.5-10.1) mg/dL NT-Pro-B Natriuret Pep 522.0 (<=1800.0) pg/mL Imaging Data Venous US: Attestation: I have reviewed the pertinent imaging results. Radiologist's impression: ITS Impressions Venous Doppler Study 08/08/23 19:49 IMPRESSION: No evidence of DVT within visualized veins. Electronically authenticated by: BLESSING GILMORE Date: 08/08/2023 21:54 XR hip: Attestation: I have reviewed the pertinent imaging results. Radiologist's impression: ITS Impressions Hip/Pelvis X-Ray 08/08/23 19:49 IMPRESSION: Radiographically negative left hip and pelvis. Electronically authenticated by: ROBERTO PATTERSON Date: 08/08/2023 22:30 Venous Doppler Study 08/08/23 19:49 IMPRESSION: No evidence of DVT within visualized veins. Electronically authenticated by: BLESSING GILMORE Date: 08/08/2023 21:54 XR foot: Attestation: I have reviewed the pertinent imaging results. Radiologist's impression: ITS Impressions Hip/Pelvis X-Ray 08/08/23 19:49 IMPRESSION: Radiographically negative left hip and pelvis. Electronically authenticated by: ROBERTO PATTERSON Date: 08/08/2023 22:30 Venous Doppler Study 08/08/23 19:49 IMPRESSION: No evidence of DVT within visualized veins. Electronically authenticated by: BLESSING GILMORE Date: 08/08/2023 21:54 Discharge Plan Discharge Stand Alone Forms: Portal Instructions Chief Complaint: Extremity Problem, Nontraumatic Clinical Impression: Left leg swelling Patient Disposition: Home, Self-Care Time of Disposition Decision: 22:34 Condition: Good Prescriptions / Home Meds: No Action doxepin 25 mg capsule 50 mg PO .QHS levothyroxine 112 mcg tablet 112 mcg PO .ACB pantoprazole 40 mg tablet,delayed release (DR/EC) 40 mg PO .QD prednisone 5 mg tablet 5 mg PO .QOD tramadol 50 mg tablet 50 mg PO BID PRN (Reason: pain) tramadol 50 mg Tablet 50 mg PO BID PRN (Reason: pain) Qty: 60 0RF prednisone 10 mg tablet 40 mg PO DAILY Qty: 32 0RF Rx Instructions: 5/day for 3 days. 4/day for 3 days, 3/day for 3 days, 2/day for 3 days, 1/day for 3 days, 1/2 /day for 4 days levofloxacin 500 mg tablet 500 mg PO DAILY 7 Days Qty: 7 0RF fluocinonide 0.05 % ointment TOPICAL simvastatin 40 mg tablet aspirin 81 mg tablet,delayed release (DR/EC) 81 mg PO DAILY glucosamine sulfate 750 mg tablet 1,500 mg PO DAILY Rx Instructions: administer with a meal Print Language: Swiss Instructions: Edema (ED), Ecchymosis (ED) Referrals: Physician,Non-Staff, [Physician] - 1 week
[2023-08-08 20:18] LABS: Hematocrit 39.1 % (42.0-54.0); Mean Corpuscular HGB Conc 33.2 g/dL (29.9-35.2); Mean Corpuscular Hemoglobin 31.9 pg (25.9-34.0); Mean Corpuscular Volume 95.8 fL (80.0-94.0); Mean Platelet Volume 10.5 fL (9.5-13.5); Platelet Count 192 10^3/uL (150-450); Red Blood Count 4.08 10^6/uL (4.70-6.10); Red Cell Distribution Width 13.2 % (11.0-15.0); White Blood Count 5.9 10^3/uL (4.0-11.0)
[2023-08-08 20:32] LABS: INR 1.03; Prothrombin Time 10.9 sec (9.0-11.6)
[2023-08-08 20:38] LABS: Atypical Lymphocytes Abs Man 0.11; Band Neutrophils Absolute 0.1 10^3/uL (0.0-0.3); Eosinophils Absolute Manual 0.05 10^3/uL (0.00-0.70); Hypersegmented Neutrophils 2+; Lymphocytes Absolute Manual 0.59 10^3/uL (1.20-3.80); Monocytes Absolute Manual 0.29 10^3/uL (0.30-0.80); Schistocytes 2+; Segmented Neut Absolute Manual 4.77 10^3/uL (1.4-6.5)
[2023-08-08 20:40] LABS: Anion Gap 17.6; Calcium 8.7 mg/dL (8.5-10.1); Carbon Dioxide 22.7 mmol/L (21.0-32.0); Chloride 101 mmol/L (98-107); Estimated GFR (African America 51 (>=60); Estimated GFR (Non-African Ame 42 (>=60); Glucose 98 mg/dL (74-106); Potassium 4.3 mmol/L (3.5-5.1); Sodium 137 mmol/L (136-145)
[2023-08-08 22:51] VITALS: BP 120/68; PULSE 88; O2SAT 93
== END 2023-08-08 22:52 | disposition home or self-care (01) ==
PROVIDERS: Physician Assistant; Emergency Provider Student in an Organized Health Care Education/Training Program; PCP Family Medicine
DX: M79.89 Other specified soft tissue disorders (principal); J44.9 Chronic obstructive pulmonary disease, unspecified; I25.810 Atherosclerosis of coronary artery bypass graft(s) without angina pectoris; R06.02 Shortness of breath; I25.2 Old myocardial infarction; Z90.49 Acquired absence of other specified parts of digestive tract; Z96.652 Presence of left artificial knee joint; Z87.891 Personal history of nicotine dependence; Z79.82 Long term (current) use of aspirin; Z79.899 Other long term (current) drug therapy; Z79.890 Hormone replacement therapy
CPT/HCPCS: 36415; 73502; 73630; 80048; 83880; 85007; 85027; 85610; 93971; 99285

== ENCOUNTER 2023-09-17 05:33 | Emergency (ER) | payer MEDICARE, SELFPAY ==
[2023-09-17 05:44] VITALS: BP 123/74; PULSE 66; TEMP 36.6; O2SAT 95; BMI 24.4
--- NOTE | 2023-09-17 05:56 | PC.NURSE ---
PT C/O SWELLING TO LEFT ELBOW X 1 MONTH. PT STATES HAS NOT SEEN PCP FOR IT. PT DENIES ANY PAIN
--- OUTSIDE RECORDS SUMMARY | 2023-09-17 05:56 | XMS_ITS | CCD ---
Author Organization [facility] Care Team Providers Care Dispatcher Service Chief Name Role Phone NATASHA, DR REAVES Consulting [...] Care Unavailable NATASHA, DR REAVES Consulting Unavailable Sreekanth LAYTON, Ike Marks Primary Care Provider [phone] Medications Current Medications Medication Drug Class(es) Dates [...] myocardial infarction; Translations: [Atherosclerotic heart disease of [place] coronary artery without angina pectoris] Onset: 03-15-2022 [...] 03-15-2022 Chronic Other aftercare (1 source) Other nursing home (current) drug therapy; Translations: [[employer] CURRENT DRUG THERAPY] Onset: 08-18-2022 Episodic Other [...] Onset: 03-15-2022 Episodic Other aftercare (1 source) 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 [address] [place] [address] Dr. Jasbir Ocampo ATYPICAL LYMPH % Normal [facility] Comment on above: Performed By: #### C RUSS #### [facility] [address] [place] [address] Dr. Jasbir Ocampo BAND # 0.0 103/ul Normal 0.0-0.3 [facility] Comment on above: Performed By: #### C RUSS #### [facility] [address] [place] [address] Dr. Jasbir Ocampo BAND % 0 % Normal 0-5 [facility] Comment on above: Performed By: #### C RUSS #### [facility] [address] [place] [address] Dr. Jasbir Ocampo BASOM # 0.00 103/ul Normal 0.00-0.10 [facility] Comment on above: Performed By: #### C RUSS #### [facility] [address] [address] [address] Jasibr Ocampo BASOM % 0.0 % Critically low 0.2-2.0 [facility] Comment on above: Performed By: #### C RUSS #### [facility] [address] [place] [address] Dr. Jasbir Ocampo BLAST # Normal [facility] Comment on above: Performed By: #### C RUSS #### [facility] [address] [place] [address] Dr. Jasbir Ocampo BLAST % Normal [facility] Comment on above: Performed By: #### C RUSS #### [facility] [address] [place] [address] Dr. Jasbir Ocampo CORRECTED WBC Normal 4.0-11.0 [facility] Comment on above: Performed By: #### C RUSS #### [facility] [address] [place] [address] Dr. Jasbir Ocampo EOS # 0.05 103/ul Normal 0.00-0.70 [facility] Comment on above: Performed By: #### C RUSS #### [facility] [address] [place] [address] Dr. Jasbir Ocampo EOS% 1.0 % Normal 0.9-7.0 [facility] Comment on above: Performed By: #### C RUSS #### [facility] [address] [place] [address] Dr. Jasbir Ocampo HCT 42.5 % Normal 42.0-54.0 [facility] Comment on above: Performed By: #### C RUSS #### [facility] [address] [place] [address] Dr. Jasbir Ocampo HGB 14.2 g/dl Normal 14.0-18.0 [facility] Comment on above: Performed By: #### C RUSS #### [facility] [address] [place] [address] Dr. Jasbir Ocampo LYMPHM # 2.02 103/ul Normal 1.20-3.80 [facility] Comment on above: Performed By: #### C RUSS #### [facility] [address] [place] [address] Dr. Jasbir cOampo LYMPHM% 43.0 % Normal 20.5-60.0 [facility] Comment on above: Performed By: #### C RUSS #### [facility] [address] [place] [address] Dr. Jasbir Ocampo MCH 32.1 pg Normal 25.9-34.0 [facility] Comment on above: Performed By: #### C RUSS #### [facility] [address] [place] [address] Dr. Jasbir Ocampo MCHC 33.4 g/dl Normal 29.9-35.2 [facility] Comment on above: Performed By: #### C RUSS #### [facility] [address] [place] [address] Dr. Jasbir Ocampo MCV 96.2 fL Critically high 80.0-94.0 [facility] Comment on above: Performed By: #### C RUSS #### [facility] [address] [place] [address] Dr. Jasbir Ocampo METAMYELOCYTE # Normal [facility] Comment on above: Performed By: #### C RUSS #### [facility] [address] [place] [address] Dr. Jasbir Ocampo METAMYELOCYTE % Normal [facility] Comment on above: Performed By: #### C RUSS #### [facility] [address] [place] [address] Dr. Jasbir Ocampo MONOM# 0.09 103/ul Critically low 0.30-0.80 [facility] Comment on above: Performed By: #### C RUSS #### [facility] [address] [place] [address] Dr. Jasbir Ocampo MONOM% 2.0 % Normal 1.7-12.0 [facility] Comment on above: Performed By: #### C RUSS #### [facility] [address] [place], [place] [id number] Dr. Jasbir Ocampo MPV 9.8 fL Normal 9.5-13.5 [facility] Comment on above: Performed By: #### C RUSS #### [facility] [address] [place] [address] Dr. Jasbir Ocampo MYELOCYTE # Normal [facility] Comment on above: Performed By: #### C RUSS #### [facility] [address] [place] [address] Dr. Jasbir Ocampo MYELOCYTE % Normal [facility] Comment on above: Performed By: #### C RUSS #### [facility] [address] [place] [address] Dr. Jasbir Ocampo NRBC Normal [facility] Comment on above: Performed By: #### C RUSS #### [facility] [address] [place] [address] Dr. Jasbir Ocampo PLT 171 103/ul Normal 150-450 [facility] Comment on above: Performed By: #### C RUSS #### [facility] [address] [place] [address] Dr. Jasbir Ocampo RBC 4.42 106/ul Critically low 4.70-6.10 [facility] Comment on above: Performed By: #### C RUSS #### [facility] [address] [place] [address] Dr. Jasbir Ocampo RDW 13.4 % Normal 11.0-15.0 [facility] Comment on above: Performed By: #### C RUSS #### [facility] [address] [place] [address] Dr. Jasbir Ocampo SEG # 2.54 103/ul Normal 1.40-6.50 [facility] Comment on above: Performed By: #### C RUSS #### [facility] [address] [place] [address] Dr. Jasbir Ocampo SEG % 54.0 % Normal 43.0-75.0 [facility] Comment on above: Performed By: #### C RUSS #### [facility] [address] [place] [address] Dr. Jasbir Ocampo WBC 4.7 103/ul Normal 4.0-11.0 [facility] Comment on above: Performed By: #### C RUSS #### [facility] [address] [place] [address] Dr. Jasbir Ocampo PROF 14(COMP METB)on 023 Albumin [Mass/Vol] 3.5 g/dL Normal 3.4-5.0 [facility] Comment on above: Performed By: #### C MP, CK #### [facility] [address] [place] [address] Dr. Jasbir Ocampo Albumin/Globulin [Mass ratio] 0.9 {ratio} Normal [facility] Comment on above: Performed By: #### C MP, CK #### [facility] [address] [place] [address] Dr. Jasbir Ocampo ALP [Catalytic activity/Vol] 71 U/L Normal 46-116 [facility] Comment on above: Performed By: #### C MP, CK #### [facility] [address] [place] [address] Dr. Jasbir Ocampo ALT [Catalytic activity/Vol] 32 U/L Normal 16-63 [facility] Comment on above: Performed By: #### C MP, CK #### [facility] [address] [place] [address] Dr. Jasbir Ocampo Anion gap [Moles/Vol] 11.2 mmol/L Normal [facility] Comment on above: Performed By: #### C MP, CK #### [facility] [address] [place] [address] Dr. Jasbir Ocampo AST [Catalytic activity/Vol] 21 U/L Normal 15-37 [facility] Comment on above: Performed By: #### C MP, CK #### [facility] [address] [place] [address] Dr. Jasbir Ocampo Bilirubin [Mass/Vol] 0.6 mg/dL Normal 0.2-1.0 [facility] Comment on above: Performed By: #### C MP, CK #### [facility] [address] [place] [address] Dr. Jasbir Ocampo Calcium [Mass/Vol] 8.7 mg/dL Normal 8.5-10.1 [facility] Comment on above: Performed By: #### C MP, CK #### [facility] [address] [place] [address] Dr. Jasbir Ocampo Chloride [Moles/Vol] 104 mmol/L Normal 98-[address] [facility] Comment on above: Performed By: #### C MP, CK #### [facility] [address] [address] [address] Jasbir Ocampo CO2 [Moles/Vol] 26.9 mmol/L Normal 21.0-32.0 [facility] Comment on above: Performed By: #### C MP, CK #### [facility] [address] [place] [address] Dr. Jasbir Ocampo Creatinine [Mass/Vol] 1.21 mg/dL Normal 0.70-1.[address] [facility] Comment on above: Performed By: #### C MP, CK #### [facility] [address] [place] [address] Dr. Jasbir Ocampo EGFR-AF [place] >60 Normal >=60 [facility] Comment on above: Performed By: #### C MP, CK #### [facility] [address] [place] [address] Dr. Jasbir Ocampo EGFR-NON AF [place] 57 mL/min/1.73m2 Critically low >=[address] [facility] Comment on above: Performed By: #### C MP, CK #### [facility] [address] [place] [address] Dr. Jasbir Ocampo Globulin (S) [Mass/Vol] 3.7 g/dL Normal [facility] Comment on above: Performed By: #### C MP, CK #### [facility] [address] [place] [address] Dr. Jasbir Ocampo Glucose [Mass/Vol] 86 mg/dL Normal 74-106 [facility] Comment on above: Performed By: #### C MP, CK #### [facility] [address] [place] [address] Dr. Jasbir Ocampo Potassium [Moles/Vol] 4.1 mmol/L Normal 3.5-5.1 [facility] Comment on above: Performed By: #### C MP, CK #### [facility] [address] [place] [address] Dr. Jasbir Ocampo Protein [Mass/Vol] 7.2 g/dL Normal 6.4-8.2 [facility] Comment on above: Performed By: #### C MP, CK #### [facility] [address] [address] [address] Jasbir Ocampo Sodium [Moles/Vol] 138 mmol/L Normal 136-145 [facility] Comment on above: Performed By: #### C MP, CK #### [facility] [address] [place] [address] Dr. Jasbir Ocampo Urea nitrogen [Mass/Vol] 18.0 mg/dL Normal 7.0-18.0 [facility] Comment on above: Performed By: #### C MP, CK #### [facility] [address] [place] [address] Dr. Jasbir Ocampo Urea nitrogen/Creatinine [Mass ratio] 14.9 mg/mg Normal [facility] Comment on above: Performed By: #### C MP, CK #### [facility] [address] [place] [address] Dr. Jasbir Ocampo SED RATE [facility] 2022 SED RATE 13 mm/hr Normal <=20 [facility] Comment on above: Performed By: #### S EDR #### [facility] [address] [place] [address] Dr. Jasbir Ocampo XR KNEE RT 4V [...] CELESTE CREWS Date: 2022-03-13 11:[address] [facility] CBC AUTO DIFFon 03-11-2022 BASO # 0.0 103/ul Normal 0.0-0.1 [facility] Comment on above: Performed By: #### C BC #### [facility] [address] [address] [address] Jasbir Ocampo Basophils/100 WBC (Bld) 0.5 % Normal 0.2-2.0 [facility] Comment on above: Performed By: #### C BC #### [facility] [address] [address] [address] Jasbir Ocampo EO # 0.2 103/ul Normal 0.0-0.7 [facility] Comment on above: Performed By: #### C BC #### [facility] [address] [address] [address] Jasbir Ocampo Eosinophils/100 WBC (Bld) 2.8 % Normal 0.9-7.0 [facility] Comment on above: Performed By: #### C BC #### [facility] [address] [address] [address] Jasbir Ocampo Erythrocyte distribution width (RBC) [Ratio] 14.0 % Normal 11.0-15.0 [facility] Comment on above: Performed By: #### C BC #### [facility] [address] [place] [address] Dr. Jasbir Ocampo Hematocrit (Bld) [Volume fraction] 42.8 % Normal 42.0-54.0 [facility] Comment on above: Performed By: #### C BC #### [facility] [address] [address] [address] Jasbir Ocampo Hemoglobin (Bld) [Mass/Vol] 14.1 g/dL Normal 14.0-18.0 [facility] Comment on above: Performed By: #### C BC #### [facility] [address] [place] [address] Dr. Jasbir Ocampo IG # 0.04 10e3/ul Critically high 0.00-0.03 [facility] Comment on above: Performed By: #### C BC #### [facility] [address] [place] [address] Dr. Jasbir Ocampo IG % 0.7 % Critically high 0.0-0.5 [facility] Comment on above: Performed By: #### C BC #### [facility] [address] [place] [address] Dr. Jasbir Ocampo LYMPH # 2.5 103/ul Normal 1.2-3.8 [facility] Comment on above: Performed By: #### C BC #### [facility] [address] [place] [address] Dr. Jasbir Ocampo Lymphocytes/100 WBC (Bld) 44.1 % Normal 20.5-60.0 [facility] Comment on above: Performed By: #### C BC #### [facility] [address] [place] [address] Dr. Jasbir Ocampo MANUAL DIFF REQ NO Normal [facility] Comment on above: Performed By: #### C BC #### [facility] [address] [place] [address] Dr. Jasbir Ocampo MCH (RBC) [Entitic mass] 31.2 pg Normal 25.9-34.0 [facility] Comment on above: Performed By: #### C BC #### [facility] [address] [place] [address] Dr. Jasbir Ocampo MCHC (RBC) [Mass/Vol] 32.9 g/dL Normal 29.9-35.2 [facility] Comment on above: Performed By: #### C BC #### [facility] [address] [place] [address] Dr. Jasbir Ocampo MCV (RBC) [Entitic vol] 94.7 fL Critically high 80.0-94.0 [facility] Comment on above: Performed By: #### C BC #### [facility] [address] [place] [address] Dr. Jasbir Ocampo MONO # 0.5 103/ul Normal 0.3-0.8 [facility] Comment on above: Performed By: #### C BC #### [facility] [address] [address] [address] Jasbir Ocampo Monocytes/100 WBC (Bld) 7.8 % Normal 1.7-12.0 [facility] Comment on above: Performed By: #### C BC #### [facility] [address] [address] [address] Jasbir Ocampo NEUT # 2.5 103/ul Normal 1.4-6.5 [facility] Comment on above: Performed By: #### C BC #### [facility] [address] [address] [address] Jasbir Ocampo Neutrophils/100 WBC (Bld) 44.1 % Normal 43.0-75.0 [facility] Comment on above: Performed By: #### C BC #### [facility] [address] [place] [address] Dr. Jasbir Ocampo Platelet mean volume (Bld) [Entitic vol] 10.3 fL Normal 9.5-13.5 [facility] Comment on above: Performed By: #### C BC #### [facility] [address] [place] [address] Dr. Jasbir Ocampo PLT 238 103/ul Normal 150-[address] [facility] Comment on above: Performed By: #### C BC #### [facility] [address] [place] [address] Dr. Jasbir Ocampo RBC 4.52 106/ul Critically low 4.70-6.10 [facility] Comment on above: Performed By: #### C BC #### [facility] [address] [address] [address] Jasbir Ocampo WBC 5.7 103/ul Normal 4.0-11.[address] [facility] Comment on above: Performed By: #### C BC #### [facility] [address] [place] [address] Dr. Jasbir Ocampo CPKon 03-11-2022 CK [Catalytic activity/Vol] 130 U/L Normal 39-[address] [facility] Comment on above: Performed By: #### C MP, CK #### [facility] [address] [address] [address] Jasbir Ocampo PROF 14(COMP METB)on 022 Albumin [Mass/Vol] 3.3 g/dL Critically low 3.4-5.0 [facility] Comment on above: Performed By: #### C MP, CK #### [facility] [address] [address] [address] Jasbir Ocampo Albumin/Globulin [Mass ratio] 0.8 {ratio} Normal [facility] Comment on above: Performed By: #### C MP, CK #### [facility] [address] [address] [address] Jasbir Ocampo ALP [Catalytic activity/Vol] 74 U/L Normal 46-116 [facility] Comment on above: Performed By: #### C MP, CK #### [facility] [address] [place] [address] Dr. Jasbir Ocampo ALT [Catalytic activity/Vol] 22 U/L Normal 16-63 [facility] Comment on above: Performed By: #### C MP, CK #### [facility] [address] [address] [address] Jasbir Ocampo Anion gap [Moles/Vol] 11.5 mmol/L Normal [facility] Comment on above: Performed By: #### C MP, CK #### [facility] [address] [address] [address] Jasbir Ocampo AST [Catalytic activity/Vol] 20 U/L Normal 15-37 [facility] Comment on above: Performed By: #### C MP, CK #### [facility] [address] [place] [address] Dr. Jasbir Ocampo Bilirubin [Mass/Vol] 0.5 mg/dL Normal 0.2-1.0 [facility] Comment on above: Performed By: #### C MP, CK #### [facility] [address] [address] [address] Jasbir Ocampo Calcium [Mass/Vol] 8.8 mg/dL Normal 8.5-10.1 [facility] Comment on above: Performed By: #### C MP, CK #### [facility] [address] [address] [address] Jasbir Ocampo Chloride [Moles/Vol] 102 mmol/L Normal 98-[address] [facility] Comment on above: Performed By: #### C MP, CK #### [facility] [address] [address] [address] Jasbir Ocampo CO2 [Moles/Vol] 27.5 mmol/L Normal 21.0-32.0 [facility] Comment on above: Performed By: #### C MP, CK #### [facility] [address] [address] [address] Jasbir Ocampo Creatinine [Mass/Vol] 0.99 mg/dL Normal 0.70-1.[address] [facility] Comment on above: Performed By: #### C MP, CK #### [facility] [address] [address] [address] Jasbir Ocampo EGFR-AF [place] >60 Normal >=60 [facility] Comment on above: Performed By: #### C MP, CK #### [facility] [address] [address] [address] Jasbir Ocampo EGFR-NON AF [place] >60 Normal >=[address] [facility] Comment on above: Performed By: #### C MP, CK #### [facility] [address] [address] [address] Jasbir Ocampo Globulin (S) [Mass/Vol] 4.1 g/dL Normal [facility] Comment on above: Performed By: #### C MP, CK #### [facility] [address] [address] [address] Jasbir Ocampo Glucose [Mass/Vol] 90 mg/dL Normal 74-106 [facility] Comment on above: Performed By: #### C MP, CK #### [facility] [address] [address] [address] Jasbir Ocampo Potassium [Moles/Vol] 4.0 mmol/L Normal 3.5-5.[address] [facility] Comment on above: Performed By: #### C MP, CK #### [facility] [address] [address] [address] Jasbir Ocampo Protein [Mass/Vol] 7.4 g/dL Normal 6.4-8.2 [facility] Comment on above: Performed By: #### C MP, CK #### [facility] [address] [place] [address] Dr. Jasbir Ocampo Sodium [Moles/Vol] 137 mmol/L Normal 136-145 [facility] Comment on above: Performed By: #### C MP, CK #### [facility] [address] [place] [address] Dr. aJsbir Ocampo Urea nitrogen [Mass/Vol] 21.0 mg/dL Critically high 7.0-18.0 [facility] Comment on above: Performed By: #### C MP, CK #### [facility] [address] [place] [address] Dr. Jasbir Ocampo Urea nitrogen/Creatinine [Mass ratio] 21.2 mg/mg Normal [facility] Comment on above: Performed By: #### C MP, CK #### [facility] [address] [place] [address] Dr. Jasbir Ocampo SED RATE [facility] 2021 SED RATE 43 mm/hr Critically high <=20 [facility] Comment on above: Performed By: #### S EDR #### [facility] [address] [place] [address] Dr. Jasbir Ocampo CBC AUTO DIFFon 10-28-2021 BASO # 0.0 103/ul Normal 0.0-0.1 [facility] Comment on above: Performed By: #### C MP, CK #### [facility] [address] [place] [address] Dr. Jasbir Ocampo Basophils/100 WBC (Bld) 0.6 % Normal 0.2-2.0 [facility] Comment on above: Performed By: #### C MP, CK #### [facility] [address] [place] [address] Dr. Jasbir Ocampo EO # 0.1 103/ul Normal 0.0-0.7 [facility] Comment on above: Performed By: #### C MP, CK #### [facility] [address] [place] [address] Dr. Jasbir Ocampo Eosinophils/100 WBC (Bld) 2.3 % Normal 0.9-7.0 [facility] Comment on above: Performed By: #### C MP, CK #### [facility] [address] [place] [address] Dr. Jasbir Ocampo Erythrocyte distribution width (RBC) [Ratio] 13.7 % Normal 11.0-15.0 [facility] Comment on above: Performed By: #### C MP, CK #### [facility] [address] [place] [address] Dr. Jasbir Ocampo Hematocrit (Bld) [Volume fraction] 41.8 % Critically low 42.0-54.0 [facility] Comment on above: Performed By: #### C MP, CK #### [facility] [address] [place] [address] Dr. Jasbir Ocampo Hemoglobin (Bld) [Mass/Vol] 13.8 g/dL Critically low 14.0-18.0 [facility] Comment on above: Performed By: #### C MP, CK #### [facility] [address] [place] [address] Dr. Jasbir Ocampo IG # 0.02 10e3/ul Normal 0.00-0.03 [facility] Comment on above: Performed By: #### C MP, CK #### [facility] [address] [place] [address] Dr. Jasbir Ocampo IG % 0.4 % Normal 0.0-0.[address] [facility] Comment on above: Performed By: #### C MP, CK #### [facility] [address] [place] [address] Dr. Jasbir Ocampo LYMPH # 1.8 103/ul Normal 1.2-3.[address] [facility] Comment on above: Performed By: #### C MP, CK #### [facility] [address] [place] [address] Dr. Jasbir Ocampo Lymphocytes/100 WBC (Bld) 36.7 % Normal 20.5-60.0 [facility] Comment on above: Performed By: #### C MP, CK #### [facility] [address] [place] [address] Dr. Jasbir Ocampo MANUAL DIFF REQ NO Normal [facility] Comment on above: Performed By: #### C MP, CK #### [facility] [address] [place] [address] Dr. Jasbir Ocampo MCH (RBC) [Entitic mass] 31.9 pg Normal 25.9-34.[address] [facility] Comment on above: Performed By: #### C MP, CK #### [facility] [address] [place] [address] Dr. Jasbir Ocampo MCHC (RBC) [Mass/Vol] 33.0 g/dL Normal 29.9-35.[address] [facility] Comment on above: Performed By: #### C MP, CK #### [facility] [address] [place] [address] Dr. Jasbir Ocampo MCV (RBC) [Entitic vol] 96.8 fL Critically high 80.0-94.0 [facility] Comment on above: Performed By: #### C MP, CK #### [facility] [address] [place] [address] Dr. Jasbir Ocampo MONO # 0.4 103/ul Normal 0.3-0.8 [facility] Comment on above: Performed By: #### C MP, CK #### [facility] [address] [place] [address] Dr. Jasbir Ocampo Monocytes/100 WBC (Bld) 9.0 % Normal 1.7-12.[address] [facility] Comment on above: Performed By: #### C MP, CK #### [facility] [address] [place] [address] Dr. Jasbir Ocampo NEUT # 2.5 103/ul Normal 1.4-6.[address] [facility] Comment on above: Performed By: #### C MP, CK #### [facility] [address] [place] [address] Dr. Jasbir Ocampo Neutrophils/100 WBC (Bld) 51.0 % Normal 43.0-75.0 [facility] Comment on above: Performed By: #### C MP, CK #### [facility] [address] [place] [address] Dr. Jasbir Ocampo Platelet mean volume (Bld) [Entitic vol] 10.0 fL Normal 9.5-13.5 [facility] Comment on above: Performed By: #### C MP, CK #### [facility] [address] [place] [address] Dr. Jasbir Ocampo PLT 192 103/ul Normal 150-450 [facility] Comment on above: Performed By: #### C MP, CK #### [facility] [address] [place] [address] Dr. Jasbir Ocampo RBC 4.32 106/ul Critically low 4.70-6.10 [facility] Comment on above: Performed By: #### C MP, CK #### [facility] [address] [place] [address] Dr. Jasbir Ocampo WBC 4.9 103/ul Normal 4.0-11.0 [facility] Comment on above: Performed By: #### C MP, CK #### [facility] [address] [place] [address] Dr. Jasbir Ocampo CPKon 10-28-2021 CK [Catalytic activity/Vol] 163 U/L Normal 39-308 [facility] Comment on above: Performed By: #### C MP, CK #### [facility] [address] [place] [address] Dr. Jasbir Ocampo PROF 14(COMP METB)on 022 Albumin [Mass/Vol] 3.6 g/dL Normal 3.4-5.0 [facility] Comment on above: Performed By: #### C MP, CK #### [facility] [address] [place] [address] Dr. Jasbir Ocampo Albumin/Globulin [Mass ratio] 1.1 {ratio} Normal [facility] Comment on above: Performed By: #### C MP, CK #### [facility] [address] [address] [address] Jasbir Ocampo ALP [Catalytic activity/Vol] 71 U/L Normal 46-116 [facility] Comment on above: Performed By: #### C MP, CK #### [facility] [address] [address] [address] Jasbir Ocampo ALT [Catalytic activity/Vol] 24 U/L Normal 16-[address] [facility] Comment on above: Performed By: #### C MP, CK #### [facility] [address] [address] [address] Jasbir Ocampo Anion gap [Moles/Vol] 14.2 mmol/L Normal [facility] Comment on above: Performed By: #### C MP, CK #### [facility] [address] [address] [address] Jasbir Ocampo AST [Catalytic activity/Vol] 17 U/L Normal 15-37 [facility] Comment on above: Performed By: #### C MP, CK #### [facility] [address] [address] [address] Jasbir Ocampo Bilirubin [Mass/Vol] 0.6 mg/dL Normal 0.2-1.0 [facility] Comment on above: Performed By: #### C MP, CK #### [facility] [address] [address] [address] Jasbir Ocampo Calcium [Mass/Vol] 8.9 mg/dL Normal 8.5-10.1 [facility] Comment on above: Performed By: #### C MP, CK #### [facility] [address] [address] [address] Jasbir Ocampo Chloride [Moles/Vol] 105 mmol/L Normal 98-107 [facility] Comment on above: Performed By: #### C MP, CK #### [facility] [address] [address] [address] Jasbir Ocampo CO2 [Moles/Vol] 23.5 mmol/L Normal 21.0-32.0 [facility] Comment on above: Performed By: #### C MP, CK #### [facility] [address] [place] [address] Dr. Jasbir Ocampo Creatinine [Mass/Vol] 1.14 mg/dL Normal 0.70-1.[address] [facility] Comment on above: Performed By: #### C MP, CK #### [facility] [address] [address] [address] Jasbir Ocampo EGFR-AF TURKISH >60 Normal >=60 [facility] Comment on above: Performed By: #### C MP, CK #### [facility] [address] [place] [address] Dr. Jasbir Ocampo EGFR-NON AF TURKISH >60 Normal >=60 [facility] Comment on above: Performed By: #### C MP, CK #### [facility] [address] [place] [address] Dr. Jasbir Ocampo Globulin (S) [Mass/Vol] 3.4 g/dL Normal [facility] Comment on above: Performed By: #### C MP, CK #### [facility] [address] [place] [address] Dr. Jasbir Ocampo Glucose [Mass/Vol] 91 mg/dL Normal 74-106 [facility] Comment on above: Performed By: #### C MP, CK #### [facility] [address] [place] [address] Dr. Jasbir Ocampo Potassium [Moles/Vol] 4.7 mmol/L Normal 3.5-5.[address] [facility] Comment on above: Performed By: #### C MP, CK #### [facility] [address] [place] [address] Dr. Jasbir Ocampo Protein [Mass/Vol] 7.0 g/dL Normal 6.4-8.2 [facility] Comment on above: Performed By: #### C MP, CK #### [facility] [address] [place] [address] Dr. Jasbir Ocampo Sodium [Moles/Vol] 138 mmol/L Normal 136-145 [facility] Comment on above: Performed By: #### C MP, CK #### [facility] [address] [place] [address] Dr. Jasbir Ocampo Urea nitrogen [Mass/Vol] 20.0 mg/dL Critically high 7.0-18.0 [facility] Comment on above: Performed By: #### C MP, CK #### [facility] [address] [address] [address] Jasbir Ocampo Urea nitrogen/Creatinine [Mass ratio] 17.5 mg/mg Normal [facility] Comment on above: Performed By: #### C MP, CK #### [facility] [address] [address] [address] Jasbir Ocampo SED RATE [facility] 2021 SED RATE 11 mm/hr Normal <=20 [facility] Comment on above: Performed By: #### S EDR #### [facility] [address] [address] [address] Jasbir Ocampo Ambulatory Clinical Summaryo n 10-28-2020 Ambulatory Clinical Summary {[id number]}CD:[id number] Normal [facility] General Surgery Office/Clini c Noteon 10-28-2020 [...] Family History Family history is negative Normal [facility] Comment on above: Result Comment: Elec tronically Signed By: QING LAYTON, Wolf Rao\Date and Time Signed: 10/28/20 13:11 EDT Pathology Noteon 10-21-2020 Pathology Note [id number]:127 Normal [facility] Ambulatory Clinical Summaryo n 10-16-2020 Ambulatory Clinical Summary {[id number]}CD:[id number] Normal [facility] General Surgery Office/Clini c Noteon 10-16-2020 [...] 10/10/2020 Family History Family history is negative [facility] Comment on above: Result Comment: Elec tronically Signed By: QING LAYTON, Wolf Rao\Date and Time Signed: 10/16/20 09:17 EDT Ambulatory Clinical Summaryo n 10-10-2020 Ambulatory Clinical Summary {[id number]}CD:[id number] Normal [facility] Facesheeton 10-10-2020 Facesheet [id number]:127 Normal [facility] Insurance Correspondence Off iceon 10-10-2020 Insurance Correspondence Office [id number]:127 Normal [facility] Consultation Noteon 10-09-19 Consultation Note [id number]:127 Normal [facility] Vital Signs Date Time Vital Sign Value Performing Clinician Facility 07-15-2023 15:35-0400 Body height 177.8 cm [employer] DO Work Phone: [facility] [email or web address] [facility] 07-15-2023 15:35-0400 Body mass index (BMI) [Ratio] 24.88 kg/m2 [employer] DO Work Phone: [facility] [email or web address] [facility] 07-15-2023 15:35-0400 Body temperature 98.01 [degF] [employer] [facility] 07-15-2023 15:35-0400 Body weight 78.65 kg [employer] [facility] 07-15-2023 15:35-0400 Diastolic blood pressure 91 mm[Hg] [employer] [facility] 07-15-2023 15:35-0400 Heart rate 74 /min Naresh Altman DO Work Phone: [facility] [email or web address] [facility] 07-15-2023 15:35-0400 Respiratory rate 16 /min Naresh Altman [facility] 07-15-2023 15:35-0400 SaO2% (BldA) [Mass fraction] 94 % Naresh Altman DO Work Phone: [facility] 07-15-2023 15:35-0400 Systolic blood pressure 151 mm[Hg] Naresh Altman DO Work Phone: [facility] Encounters Encounter Date Encounter Type Care Provider Facility Start: 07-15-2023 ambulatory Naresh rebolledo DO Work Phone: [facility] Comment on above: Influenza A (Primary Dx); Pneumonia due to influenza A virus; Chronic obstructive pulmonary disease, unspecified COPD type ([facility]); Thrombocytopenia ([facility]); Stage 3 chronic kidney disease, unspecified whether stage 3a or 3b CKD ([facility]); Gastroesophageal reflux disease, unspecified whether esophagitis present; Hypothyroidism, unspecified type; Hyperlipidemia, unspecified hyperlipidemia type; Abnormality of gait and mobility; Severe persistent asthma with exacerbation; 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 Facility:[facility] Start: 03-11-2022 End: 03-12-[address] DOCTOR SEYMOUR Facility:[facility] Start: 10-28-2021 End: 10-29-[address] JELLY KAUR Facility: Plan of Treatment Date Care Activity Detail Author Start: 12-11-2023 Influenza vaccination Influenza Vaccine [facility] Start: 01-26-2001 Fall Risk Screening Fall Risk Screening [facility] Start: 01-26-1986 Administration of varicella zoster vaccine Zoster (Shingles) Vaccine ( 2) [facility] [email or web address] [facility] Start: 01-26-1955 DTaP,Tdap and Td Vaccines (1 - Tdap) DTaP,Tdap and Td Vaccines (1 - Tdap) [facility] Start: 01-26-1954 Adult BMI Screening Adult BMI Screening [facility] Start: 1948 Depression Screening Depression Screening [facility] Start: 1948 Tobacco Screening Tobacco Screening [facility] Start: 1935 Medicare Annual Wellness Visit Medicare Annual Wellness Visit [facility] Payers Date Payer Category Payer Private Health Insurance [facility] AARP SUPPLEMENT [id number] 2016-Present [phone] [address] [place] [address] [id number] 2001 Medicare MEDICARE MEDICAR E PART A & B [id number] 2001-Present [phone] [address] [place] [address] [id number] 1959 Medicare [id number] 1959 Private Health Insurance CLI [id number] Self-pay 1936 Unknown [id number] 1936 Unknown [id number] 1936 Unknown [id number] 1936 Unknown [id number] 1936 Unknown [id number] Social History Date Type Detail Facility Start: [facility] End: 04-11-1994 History of tobacco use Current smoker [facility] End: 04-11-1994 History of tobacco use Cigarette Smoker [facility] Start: 05-22-2020 End: 07-15-2023 Cigarettes smoked current (pack per day) - Reported 1 [facility] Start: 07-15-2023 Tobacco use and exposure Smokeless tobacco non-user [facility] Start: 07-15-2023 Alcohol intake Current drinke r of alcohol (finding) [facility] Start: 05-22-2020 End: 07-15-2023 Tobacco use panel [facility] Childcare Unknown [facility] Start: 1935 Sex Assigned At Not on file P [facility] History of Present illness Narrative 07-15-2023 Naresh Altman, DO - 07/15/2023 3:35 PM EDT Note Date & Type Note Facility 07-15-2023 History of Present illness Narrative Patient Name: Adams Noble Date of : 1935 Date of Service: 07/15/2023 Facility: [facility] Type of Visit: Admission H&P Subjective Adams Noble is a 88 y.o. male seen today at residential facility for admission H&P. Adams presents to [facility] for therapies. He was recently admitted to [facility] for influenza A pneumonia. He also [...] 250 mcg 2 puffs BID from the MS but has not been taking it. He would like to restart it. 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 He takes plaquenil, tylenol and tramadol for pain. He is only getting tramadol now and would like the other 2. He is also having a lot of swelling in his legs. He doesn't have any known heart failure. He had a CABG in 1998-double bypass. He also has a lot of bruising on arms and legs. Dr. Stack prescribes tramadol and he gets rest of [...] Exam Vitals reviewed. Exam conducted with a clinical lab assistant present (daughter and grand-daughter). Constitutional: General: He [...] Chronic obstructive pulmonary disease, unspecified COPD type ([facility]) 4. Thrombocytopenia ([facility]) 5. Stage 3 chronic kidney disease, unspecified whether stage 3a or 3b CKD ([facility]) 6. Gastroesophageal reflux [...] Naresh Altman DO documented in this encounter [facility] Clinical Note 10-10-2020 Note Date & [...] 10/10/2020 Family History Family history is negative [facility] Comment on above: Result Comment: Elec tronically Signed By: QING LAYTON, Wolf Rao\Date and Time Signed: 10/10/20 09:30 EDT Evaluation note Note Date & Type Note Facility Evaluation note Diagnosis Influenza A- Primary Influenza with other respiratory manifestations Pneumonia due to influenza A virus Chronic obstructive pulmonary disease, unspecified COPD type ([facility]) Thrombocytopenia ([facility]) Unspecified thrombocytopenia Stage 3 chronic kidney disease, unspecified whether stage 3a or 3b CKD ([facility]) Gastroesophageal reflux disease, [...] section and content) DATE CREATED AUTHOR 10/29/2020 [facility] DATE CREATED AUTHOR AUTHOR'S ORGANIZ ATION 08/19/2022 [facility] Care Teams (unrecognized sec tion and content) Dispatcher Service Chief Relationship Specialty Start Date End Date Ike Stack MD [address] [id number] PCP - General 01/26/17 FOR RECORDS PERTAINING [...] BE BASED ON THE PRIMARY CLINICAL RECORDS. [facility]. provides no warranty or guarantee of the accuracy or completeness of information in this document.
--- NOTE | 2023-09-17 06:23 | ED.GENADUL1 ---
HPI HPI - General Adult General Chief complaint: Skin/Abscess/Foreign Body Stated complaint: GROWTH ON ARM Time Seen by Provider: 09/17/23 06:14 Source: patient Mode of arrival: walk-in Limitations: no limitations History of Present Illness HPI narrative: swelling and discomfort left elbow past month. Informed family today and they brought him in this AM. No fever or nausea. Does have mild pain. Known history of arthritis Related Data Home Medications ?Medication ?Instructions ?Recorded ?Confirmed doxepin 25 mg capsule 50 mg PO .QHS insomnia 07/10/23 08/08/23 levothyroxine 112 mcg tablet 112 mcg PO .ACB 07/10/23 08/08/23 pantoprazole 40 mg tablet,delayed 40 mg PO .QD 07/10/23 08/08/23 release prednisone 5 mg tablet 5 mg PO .QOD 07/10/23 07/10/23 tramadol 50 mg tablet 50 mg PO BID PRN pain 07/11/23 08/08/23 aspirin 81 mg tablet,delayed 81 mg PO DAILY 08/08/23 08/08/23 release fluocinonide 0.05 % topical topical 08/08/23 ointment glucosamine sulfate 750 mg tablet 1,500 mg PO DAILY 08/08/23 08/08/23 simvastatin 40 mg tablet mg 08/08/23 Previous Rx's ?Medication ?Instructions ?Recorded levofloxacin 500 mg tablet 500 mg PO DAILY 7 days #7 tabs 07/13/23 prednisone 10 mg tablet 40 mg (4 x 10 mg) PO DAILY #32 tabs 07/13/23 tramadol 50 mg tablet 50 mg PO BID PRN pain #60 tabs 07/13/23 Allergies Allergy/AdvReac Type Severity Reaction Status Date / Time No Known Drug Allergies Allergy Verified 09/17/23 05:44 Opioid HPI Opioid Management Most Recent Opioid Data: Last Pain Scale 7 07/13/23 12:00 Last Pain Intensity 0 07/11/23 13:42 Last ORT Total Score 0 07/10/23 17:45 Last ORT Risk Category Low Risk 07/10/23 17:45 Review of Systems ROS Status of ROS 10 or more systems reviewed and unremarkable except as noted in history and below [facility] Medical History (Updated 09/17/23 @ 06:23 by Torito Car MD) Low back pain ?M54.50 - Low back pain, unspecified (ICD-10) Asthma exacerbation in COPD ?J44.1 - Chronic obstructive pulmonary disease with (acute) exacerbation (ICD-10) ?J45.901 - Unspecified asthma with (acute) exacerbation (ICD-10) Influenza A ?J10.1 - Influenza due to other identified influenza virus with other respiratory manifestations (ICD-10) Heart attack ?I21.9 - Acute myocardial infarction, unspecified (ICD-10) Coronary atherosclerosis of bypass graft ?I25.810 - Atherosclerosis of coronary artery bypass graft(s) without angina pectoris (ICD-10) Vertigo ?R42 - Dizziness and giddiness (ICD-10) Surgical History (Updated 07/10/23 @ 18:11 by Griselda Levi) H/O inguinal hernia repair ?Z98.890 - Other specified postprocedural states (ICD-10) ?Z87.19 - Personal history of other diseases of the digestive system (ICD-10) History of left knee replacement ?Z96.652 - Presence of left artificial knee joint (ICD-10) History of appendectomy ?Z90.49 - Acquired absence of other specified parts of digestive tract (ICD-10) Family History (Updated 07/10/23 @ 18:12 by Griselda Levi) Father Family history of cancer Social History Within the past year, how often did you have a drink containing alcohol: never Score interpretation: A score less than 4 is consistent with normal alcohol consumption. Smoking status: Former smoker Non-prescribed substance use: denies use Highest level of school completed/degree received: Associate degree: occupational, technical, vocational program Exam Constitutional Vital Signs, click to edit/add: Last Vital Signs Temp 97.9 F 09/17/23 05:44 Pulse 66 09/17/23 05:44 Resp 20 09/17/23 05:44 BP 123/74 09/17/23 05:44 Pulse Ox 95 09/17/23 05:44 O2 Del Method Room Air 09/17/23 05:44 Common normals: no apparent distress, oriented x3, healthy appearing and alert HENNH Common normals: normocephalic and head/scalp atraumatic Eye Common normals: EOMs intact bilaterally and conjunctivae normal Respiratory Other: fibrotic crackles bilat Cardio Common normals: regular rate, regular rhythm, S1 normal heart sound and S2 normal heart sound Extremity Other: large left olecranon swelling and focal erythema. mild tenderness Neuro Common normals: CN's II-XII intact bilaterally, moves all extremities and no focal motor deficits Psych Appearance: grossly normal Course Vital Signs Vital signs: Vital Signs Temperature 97.9 F 09/17/23 05:44 Pulse Rate 66 09/17/23 05:44 Respiratory Rate 20 09/17/23 05:44 Blood Pressure 123/74 09/17/23 05:44 Pulse Oximetry 95 09/17/23 05:44 Oxygen Delivery Method Room Air 09/17/23 05:44 Temperature 97.9 F 09/17/23 05:44 Pulse Rate 66 09/17/23 05:44 Respiratory Rate 20 09/17/23 05:44 Blood Pressure 123/74 09/17/23 05:44 Pulse Oximetry 95 09/17/23 05:44 Oxygen Delivery Method Room Air 09/17/23 05:44 Medical Decision Making [facility] Narrative Medical decision making narrative: patient presents with left olecranon bursitis that appears to be infected. It is warm but only mildly tender. Fairly large bursitis. Patient and family informed of the plan to treat with antibiotics and have him followup with ortho Discharge Plan Discharge Stand Alone Forms: Portal Instructions Chief Complaint: Skin/Abscess/Foreign Body Clinical Impression: Olecranon bursitis of left elbow Patient Disposition: Home, Self-Care Mode of Transportation: Private Vehicle Prescriptions / Home Meds: No Action doxepin 25 mg capsule 50 mg PO .QHS levothyroxine 112 mcg tablet 112 mcg PO .ACB pantoprazole 40 mg tablet,delayed release (DR/EC) 40 mg PO .QD prednisone 5 mg tablet 5 mg PO .QOD tramadol 50 mg tablet 50 mg PO BID PRN (Reason: pain) tramadol 50 mg Tablet 50 mg PO BID PRN (Reason: pain) Qty: 60 0RF prednisone 10 mg tablet 40 mg PO DAILY Qty: 32 0RF Rx Instructions: 5/day for 3 days. 4/day for 3 days, 3/day for 3 days, 2/day for 3 days, 1/day for 3 days, 1/2 /day for 4 days levofloxacin 500 mg tablet 500 mg PO DAILY 7 Days Qty: 7 0RF fluocinonide 0.05 % ointment TOPICAL simvastatin 40 mg tablet aspirin 81 mg tablet,delayed release (DR/EC) 81 mg PO DAILY glucosamine sulfate 750 mg tablet 1,500 mg PO DAILY Rx Instructions: administer with a meal Print Language: Tuvaluan Instructions: Elbow Bursitis (ED) Additional Instructions: follow up with Dr Poole next week Referrals: Ike Stack MD [Primary Care Provider] - 1 week
[2023-09-17] MEDS: AMOXICILLIN/POTASSIUM CLAV 1 TAB TABLET PO (06:35)
== END 2023-09-17 06:38 | disposition home or self-care (01) ==
PROVIDERS: Emergency Provider Internal Medicine; PCP Family Medicine
DX: M70.22 Olecranon bursitis, left elbow (principal); M19.90 Unspecified osteoarthritis, unspecified site; Z87.891 Personal history of nicotine dependence
CPT/HCPCS: 99283

== ENCOUNTER 2023-10-03 11:14 | Outpatient (OUT) | payer MEDICARE, SELFPAY ==
--- NOTE | 2023-10-03 | XR_ITS ---
[address] [address] Patient Name: BART FLETCHER MRN: [id number] date: 1935 Sex: M Assigned Patient Location: Current Patient Location: Accession/Order Number: [id number] Exam Date: 10/03/2023 11:15 Report Date: 10/03/2023 12:52 At the request of: JULIA CHO Procedure: XR elbow LT min 3V PROCEDURE: XR elbow LT min 3V COMPARISON: None. HISTORY: LEFT ELBOW PAIN FINDINGS: BONES:No acute fracture or dislocation. Minimal degenerative changes with marginal osteophyte formation SOFT TISSUES:Negative. No visible soft tissue swelling. EFFUSION:None visible. OTHER: Negative. XR/XR elbow LT min 3V IMPRESSION: Minimal degenerative change Electronically authenticated by: BRAD VIVAR Date: 10/03/2023 12:52
--- OUTSIDE RECORDS SUMMARY | 2023-10-03 11:19 | XMS_ITS | CCD ---
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 Role Phone NATASHA, DR REAVES Consulting Unavailable NATASHA, DR REAVES Attending Unavailable HOY ., DR PARRA Primary Care Unavailable KAUR, DR REAVES Admitting Unavailable MISC, DR GAINES Consulting Unavailable NATASHA, DR REAVES Attending Unavailable KAUR, DR REAVES [...] Sreekanth LAYTON, Ike Marks Primary Care Provider [phone] Medications Current Medications Medication Drug Class(es) Dates [...] myocardial infarction; Translations: [Atherosclerotic heart disease of [place] coronary artery without angina pectoris] Onset: 03-15-2022 [...] 03-15-2022 Chronic Other aftercare (1 source) 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 Jasbir Ocampo ATYPICAL LYMPH % Normal [facility] Comment on above: Performed By: #### C RUSS #### [facility] [address] [place] [address] Dr. Jasbir Ocampo BAND # 0.0 103/ul Normal 0.0-0.3 [facility] Comment on above: Performed By: #### C RUSS #### [facility] [address] [place] [address] Dr. Jasbir Ocampo BAND % 0 % Normal 0-5 [facility] Comment on above: Performed By: #### C RUSS #### [facility] [address] [place] [address] Dr. Jasbir Ocampo BASOM # 0.00 103/ul Normal 0.00-0.10 [facility] Comment on above: Performed By: #### C BCKELLY #### [facility] [address] [place] [address] Dr. Jasbir Ocampo BASOM % 0.0 % Critically low 0.2-2.0 [facility] Comment on above: Performed By: #### C BCKELLY #### [facility] [address] [place] [address] Dr. Jasbir Ocampo BLAST # Normal [facility] Comment on above: Performed By: #### C BCKELLY #### [facility] [address] [place] [address] Dr. Jasbir Ocampo BLAST % Normal [facility] Comment on above: Performed By: #### C RUSS #### [facility] [address] [place] [address] Dr. Jasbir Ocampo CORRECTED WBC Normal 4.0-11.0 [facility] Comment on above: Performed By: #### C RUSS #### [facility] [address] [place] [address] Dr. Jasbir Ocampo EOS # 0.05 103/ul Normal 0.00-0.70 [facility] Comment on above: Performed By: #### C RUSS #### [facility] [address] [place] [address] Dr. Jasbir Ocampo EOS% 1.0 % Normal 0.9-7.0 [facility] Comment on above: Performed By: #### C RUSS #### [facility] [address] [place] [address] Dr. Jasbir Ocampo HCT 42.5 % Normal 42.0-54.0 [facility] Comment on above: Performed By: #### C RUSS #### [facility] [address] [place] [address] Dr. Jasbir Ocampo HGB 14.2 g/dl Normal 14.0-18.0 [facility] Comment on above: Performed By: #### C RUSS #### [facility] [address] [place] [address] Dr. Jasbir Ocampo LYMPHM # 2.02 103/ul Normal 1.20-3.80 [facility] Comment on above: Performed By: #### C RUSS #### [facility] [address] [place] [address] Dr. Jasbir Ocampo LYMPHM% 43.0 % Normal 20.5-60.0 [facility] Comment on above: Performed By: #### C RUSS #### [facility] [address] [place] [address] Dr. Jasbir Ocampo MCH 32.1 pg Normal 25.9-34.0 [facility] Comment on above: Performed By: #### C RUSS #### [facility] [address] [place] [address] Dr. Jasbir Ocampo MCHC 33.4 g/dl Normal 29.9-35.2 [facility] Comment on above: Performed By: #### C RUSS #### [facility] [address] [place] [address] Dr. Jasbir Ocampo MCV 96.2 fL Critically high 80.0-94.0 [facility] Comment on above: Performed By: #### C RUSS #### [facility] [address] [place] [address] Dr. Jasbir Ocampo METAMYELOCYTE # Normal [facility] Comment on above: Performed By: #### C RUSS #### [facility] [address] [place] [address] Dr. Jasbir Ocampo METAMYELOCYTE % Normal [facility] Comment on above: Performed By: #### C RUSS #### [facility] [address] [place] [address] Dr. Jasbir Ocampo MONOM# 0.09 103/ul Critically low 0.30-0.80 [facility] Comment on above: Performed By: #### C RUSS #### [facility] [address] [place] [address] Dr. Jasbir Ocampo MONOM% 2.0 % Normal 1.7-12.0 [facility] Comment on above: Performed By: #### C RUSS #### [facility] [address] [place] [address] Dr. Jasbir Ocampo MPV 9.8 fL Normal 9.5-13.5 [facility] Comment on above: Performed By: #### C RUSS #### [facility] [address] [address] [address] Jasbir Ocampo MYELOCYTE # Normal [facility] Comment on above: Performed By: #### C RUSS #### [facility] [address] [address] [address] Jasbir Ocampo MYELOCYTE % Normal [facility] Comment on above: Performed By: #### C RUSS #### [facility] [address] [address] [address] Jasbir Ocampo NRBC Normal [facility] Comment on above: Performed By: #### C RUSS #### [facility] [address] [place] [address] Dr. Jasbir Ocampo PLT 171 103/ul Normal 150-450 [facility] Comment on above: Performed By: #### C RUSS #### [facility] [address] [place] [address] Dr. Jasbir Ocampo RBC 4.42 106/ul Critically low 4.70-6.10 [facility] Comment on above: Performed By: #### C RUSS #### [facility] [address] [place] [address] Dr. Jasbir Ocampo RDW 13.4 % Normal 11.0-15.0 [facility] Comment on above: Performed By: #### C RUSS #### [facility] [address] [place] [address] Dr. Jasbir Ocampo SEG # 2.54 103/ul Normal 1.40-6.50 [facility] Comment on above: Performed By: #### C RUSS #### [facility] [address] [place] [address] Dr. Jasbir Ocampo SEG % 54.0 % Normal 43.0-75.0 [facility] Comment on above: Performed By: #### C RUSS #### [facility] [address] [place] [address] Dr. Jasbir Ocampo WBC 4.7 103/ul Normal 4.0-11.0 [facility] Comment on above: Performed By: #### C RUSS #### [facility] [address] [place] [address] Dr. Jasbir Ocampo PROF 14(COMP METB)on 023 Albumin [Mass/Vol] 3.5 g/dL Normal 3.4-5.0 [facility] Comment on above: Performed By: #### C MP, CK #### [facility] [address] [place] [address] Dr. Jasbir Ocampo Albumin/Globulin [Mass ratio] 0.9 {ratio} Normal [facility] Comment on above: Performed By: #### C MP, CK #### [facility] [address] [place] [address] Dr. Jasbir Ocampo ALP [Catalytic activity/Vol] 71 U/L Normal 46-116 [facility] Comment on above: Performed By: #### C MP, CK #### [facility] [address] [place] [address] Dr. Jasbir Ocampo ALT [Catalytic activity/Vol] 32 U/L Normal 16-63 [facility] Comment on above: Performed By: #### C MP, CK #### [facility] [address] [place] [address] Dr. Jasbir Ocampo Anion gap [Moles/Vol] 11.2 mmol/L Normal [facility] Comment on above: Performed By: #### C MP, CK #### [facility] [address] [place] [address] Dr. Jasbir Ocampo AST [Catalytic activity/Vol] 21 U/L Normal 15-37 [facility] Comment on above: Performed By: #### C MP, CK #### [facility] [address] [place] [address] Dr. Jasbir Ocampo Bilirubin [Mass/Vol] 0.6 mg/dL Normal 0.2-1.0 [facility] Comment on above: Performed By: #### C MP, CK #### [facility] [address] [place] [address] Dr. Jasbir Ocampo Calcium [Mass/Vol] 8.7 mg/dL Normal 8.5-10.1 [facility] Comment on above: Performed By: #### C MP, CK #### [facility] [address] [place] [address] Dr. Jasbir Ocampo Chloride [Moles/Vol] 104 mmol/L Normal 98-107 [facility] Comment on above: Performed By: #### C MP, CK #### [facility] [address] [place] [address] Dr. Jasbir Ocampo CO2 [Moles/Vol] 26.9 mmol/L Normal 21.0-32.0 [facility] Comment on above: Performed By: #### C MP, CK #### [facility] [address] [place] [address] Dr. Jasbir Ocampo Creatinine [Mass/Vol] 1.21 mg/dL Normal 0.70-1.30 [facility] Comment on above: Performed By: #### C MP, CK #### [facility] [address] [place] [address] Dr. Jasbir Ocampo EGFR-AF MOZAMBICAN >60 Normal >=60 [facility] Comment on above: Performed By: #### C MP, CK #### [facility] [address] [place] [address] Dr. Jasbir Ocampo EGFR-NON AF MOZAMBICAN 57 mL/min/1.73m2 Critically low >=60 [facility] Comment on above: Performed By: #### C MP, CK #### [facility] [address] [place] [address] Dr. Jasbir Ocampo Globulin (S) [Mass/Vol] 3.7 g/dL Normal [facility] Comment on above: Performed By: #### C MP, CK #### [facility] [address] [place] [address] Dr. Jasbir Ocampo Glucose [Mass/Vol] 86 mg/dL Normal 74-106 [facility] Comment on above: Performed By: #### C MP, CK #### [facility] [address] [place] [address] Dr. Jasbir Ocampo Potassium [Moles/Vol] 4.1 mmol/L Normal 3.5-5.1 [facility] Comment on above: Performed By: #### C MP, CK #### [facility] [address] [place] [address] Dr. Jasbir Ocampo Protein [Mass/Vol] 7.2 g/dL Normal 6.4-8.2 [facility] Comment on above: Performed By: #### C MP, CK #### [facility] [address] [address] [address] Jasbir Ocampo Sodium [Moles/Vol] 138 mmol/L Normal 136-145 [facility] Comment on above: Performed By: #### C MP, CK #### [facility] [address] [place] [address] Dr. Jasbir Ocampo Urea nitrogen [Mass/Vol] 18.0 mg/dL Normal 7.0-18.0 [facility] Comment on above: Performed By: #### C MP, CK #### [facility] [address] [place] [address] Dr. Jasbir Ocampo Urea nitrogen/Creatinine [Mass ratio] 14.9 mg/mg Normal [facility] Comment on above: Performed By: #### C MP, CK #### [facility] [address] [place] [address] Dr. Jasbir Ocampo SED RATE [facility] 2022 SED RATE 13 mm/hr Normal <=20 [facility] Comment on above: Performed By: #### S EDR #### [facility] [address] [place] [address] Dr. Jasbir Ocampo XR KNEE RT 4V [...] CELESTE CREWS Date: 2022-03-13 11:27 Normal [facility] CBC AUTO DIFFon 03-11-2022 BASO # 0.0 103/ul Normal 0.0-0.1 [facility] Comment on above: Performed By: #### C BC #### [facility] [address] [address] [address] Jasbir Ocampo Basophils/100 WBC (Bld) 0.5 % Normal 0.2-2.0 [facility] Comment on above: Performed By: #### C BC #### [facility] [address] [address] [address] Jasbir Ocampo EO # 0.2 103/ul Normal 0.0-0.7 [facility] Comment on above: Performed By: #### C BC #### [facility] [address] [address] [address] Jasbir Ocampo Eosinophils/100 WBC (Bld) 2.8 % Normal 0.9-7.0 [facility] Comment on above: Performed By: #### C BC #### [facility] [address] [address] [address] Jasbir Ocampo Erythrocyte distribution width (RBC) [Ratio] 14.0 % Normal 11.0-15.0 [facility] Comment on above: Performed By: #### C BC #### [facility] [address] [address] [address] Jasbir Ocampo Hematocrit (Bld) [Volume fraction] 42.8 % Normal 42.0-54.0 [facility] Comment on above: Performed By: #### C BC #### [facility] [address] [address] [address] Jasbir Ocampo Hemoglobin (Bld) [Mass/Vol] 14.1 g/dL Normal 14.0-18.0 [facility] Comment on above: Performed By: #### C BC #### [facility] [address] [address] [address] Jasbir Ocampo IG # 0.04 10e3/ul Critically high 0.00-0.03 [facility] Comment on above: Performed By: #### C BC #### [facility] [address] [place] [address] Dr. Jasbir Ocampo IG % 0.7 % Critically high 0.0-0.5 [facility] Comment on above: Performed By: #### C BC #### [facility] [address] [place] [address] Dr. Jasbir Ocampo LYMPH # 2.5 103/ul Normal 1.2-3.8 [facility] Comment on above: Performed By: #### C BC #### [facility] [address] [place] [address] Dr. Jasbir Ocampo Lymphocytes/100 WBC (Bld) 44.1 % Normal 20.5-60.0 [facility] Comment on above: Performed By: #### C BC #### [facility] [address] [place] [address] Dr. Jasbir Ocampo MANUAL DIFF REQ NO Normal [facility] Comment on above: Performed By: #### C BC #### [facility] [address] [place] [address] Dr. Jasbir Ocampo MCH (RBC) [Entitic mass] 31.2 pg Normal 25.9-34.0 [facility] Comment on above: Performed By: #### C BC #### [facility] [address] [place] [address] Dr. Jasbir Ocampo MCHC (RBC) [Mass/Vol] 32.9 g/dL Normal 29.9-35.2 [facility] Comment on above: Performed By: #### C BC #### [facility] [address] [place] [address] Dr. Jasbir Ocampo MCV (RBC) [Entitic vol] 94.7 fL Critically high 80.0-94.0 [facility] Comment on above: Performed By: #### C BC #### [facility] [address] [place] [address] Dr. Jasbir Ocampo MONO # 0.5 103/ul Normal 0.3-0.8 [facility] Comment on above: Performed By: #### C BC #### [facility] [address] [address] [address] Jasbir Ocampo Monocytes/100 WBC (Bld) 7.8 % Normal 1.7-12.0 [facility] Comment on above: Performed By: #### C BC #### [facility] [address] [address] [address] Jasbir Ocampo NEUT # 2.5 103/ul Normal 1.4-6.5 [facility] Comment on above: Performed By: #### C BC #### [facility] [address] [address] [address] Jasbir Ocampo Neutrophils/100 WBC (Bld) 44.1 % Normal 43.0-75.0 [facility] Comment on above: Performed By: #### C BC #### [facility] [address] [place] [address] Dr. Jasbir Ocampo Platelet mean volume (Bld) [Entitic vol] 10.3 fL Normal 9.5-13.5 [facility] Comment on above: Performed By: #### C BC #### [facility] [address] [place] [address] Dr. Jasbir Ocampo PLT 238 103/ul Normal 150-450 [facility] Comment on above: Performed By: #### C BC #### [facility] [address] [place] [address] Dr. Jasbir Ocampo RBC 4.52 106/ul Critically low 4.70-6.10 [facility] Comment on above: Performed By: #### C BC #### [facility] [address] [place] [address] Dr. Jasbir Ocampo WBC 5.7 103/ul Normal 4.0-11.0 [facility] Comment on above: Performed By: #### C BC #### [facility] [address] [place] [address] Dr. Jasbir Ocampo CPKon 03-11-2022 CK [Catalytic activity/Vol] 130 U/L Normal 39-308 [facility] Comment on above: Performed By: #### C MP, CK #### [facility] [address] [address] [address] Jasbir Ocampo PROF 14(COMP METB)on 022 Albumin [Mass/Vol] 3.3 g/dL Critically low 3.4-5.0 [facility] Comment on above: Performed By: #### C MP, CK #### [facility] [address] [address] [address] Jasbir Ocampo Albumin/Globulin [Mass ratio] 0.8 {ratio} Normal [facility] Comment on above: Performed By: #### C MP, CK #### [facility] [address] [address] [address] Jasbir Ocampo ALP [Catalytic activity/Vol] 74 U/L Normal 46-116 [facility] Comment on above: Performed By: #### C MP, CK #### [facility] [address] [address] [address] Jasbir Ocampo ALT [Catalytic activity/Vol] 22 U/L Normal 16-63 [facility] Comment on above: Performed By: #### C MP, CK #### [facility] [address] [address] [address] Jasbir Ocampo Anion gap [Moles/Vol] 11.5 mmol/L Normal [facility] Comment on above: Performed By: #### C MP, CK #### [facility] [address] [address] [address] Jasbir Ocampo AST [Catalytic activity/Vol] 20 U/L Normal 15-37 [facility] Comment on above: Performed By: #### C MP, CK #### [facility] [address] [address] [address] Jasbir Ocampo Bilirubin [Mass/Vol] 0.5 mg/dL Normal 0.2-1.0 [facility] Comment on above: Performed By: #### C MP, CK #### [facility] [address] [address] [address] Jasbir Ocampo Calcium [Mass/Vol] 8.8 mg/dL Normal 8.5-10.1 [facility] Comment on above: Performed By: #### C MP, CK #### [facility] [address] [address] [address] Jasbir Ocampo Chloride [Moles/Vol] 102 mmol/L Normal 98-107 [facility] Comment on above: Performed By: #### C MP, CK #### [facility] [address] [address] [address] Jasbir Ocampo CO2 [Moles/Vol] 27.5 mmol/L Normal 21.0-32.0 [facility] Comment on above: Performed By: #### C MP, CK #### [facility] [address] [address] [address] Jasbir Ocampo Creatinine [Mass/Vol] 0.99 mg/dL Normal 0.70-1.30 [facility] Comment on above: Performed By: #### C MP, CK #### [facility] [address] [address] [address] Jasbir Ocampo EGFR-AF MOZAMBICAN >60 Normal >=60 [facility] Comment on above: Performed By: #### C MP, CK #### [facility] [address] [address] [address] Jasbir Ocampo EGFR-NON AF MOZAMBICAN >60 Normal >=60 [facility] Comment on above: Performed By: #### C MP, CK #### [facility] [address] [place] [address] Dr. Jasbir Ocampo Globulin (S) [Mass/Vol] 4.1 g/dL Normal [facility] Comment on above: Performed By: #### C MP, CK #### [facility] [address] [address] [address] Jasbir Ocampo Glucose [Mass/Vol] 90 mg/dL Normal 74-106 [facility] Comment on above: Performed By: #### C MP, CK #### [facility] [address] [address] [address] Jasbir Ocampo Potassium [Moles/Vol] 4.0 mmol/L Normal 3.5-5.1 [facility] Comment on above: Performed By: #### C MP, CK #### [facility] [address] [address] [address] Jasbir Ocampo Protein [Mass/Vol] 7.4 g/dL Normal 6.4-8.2 [facility] Comment on above: Performed By: #### C MP, CK #### [facility] [address] [address] [address] Jasbir Ocampo Sodium [Moles/Vol] 137 mmol/L Normal 136-145 [facility] Comment on above: Performed By: #### C MP, CK #### [facility] [address] [place] [address] Dr. Jasbir Ocampo Urea nitrogen [Mass/Vol] 21.0 mg/dL Critically high 7.0-18.0 [facility] Comment on above: Performed By: #### C MP, CK #### [facility] [address] [place] [address] Dr. Jasbir Ocampo Urea nitrogen/Creatinine [Mass ratio] 21.2 mg/mg Normal [facility] Comment on above: Performed By: #### C MP, CK #### [facility] [address] [place] [address] Dr. Jasbir Ocampo [facility] 43 mm/hr Critically high <=20 [facility] Comment on above: Performed By: #### S EDR #### [facility] [address] [place] [address] Dr. Jasbir Ocampo CBC AUTO DIFFon 10-28-2021 BASO # 0.0 103/ul Normal 0.0-0.1 [facility] Comment on above: Performed By: #### C MP, CK #### [facility] [address] [place] [address] Dr. Jasbir Ocampo Basophils/100 WBC (Bld) 0.6 % Normal 0.2-2.0 [facility] Comment on above: Performed By: #### C MP, CK #### [facility] [address] [place] [address] Dr. Jasbir Ocampo EO # 0.1 103/ul Normal 0.0-0.7 [facility] Comment on above: Performed By: #### C MP, CK #### [facility] [address] [place] [address] Dr. Jasbir Ocampo Eosinophils/100 WBC (Bld) 2.3 % Normal 0.9-7.0 [facility] Comment on above: Performed By: #### C MP, CK #### [facility] [address] [place] [address] Dr. Jasbir Ocampo Erythrocyte distribution width (RBC) [Ratio] 13.7 % Normal 11.0-15.0 [facility] Comment on above: Performed By: #### C MP, CK #### [facility] [address] [place] [address] Dr. Jasbir Ocampo Hematocrit (Bld) [Volume fraction] 41.8 % Critically low 42.0-54.0 [facility] Comment on above: Performed By: #### C MICHELA, CK #### [facility] [facility] [address] [place] [address] Dr. Jasbir Ocampo Hemoglobin (Bld) [Mass/Vol] 13.8 g/dL Critically low 14.0-18.0 [facility] Comment on above: Performed By: #### C MP, CK #### [facility] [address] [place] [address] Dr. Jasbir Ocampo IG # 0.02 10e3/ul Normal 0.00-0.03 [facility] Comment on above: Performed By: #### C MP, CK #### [facility] [address] [place] [address] Dr. Jasbir Ocampo IG % 0.4 % Normal 0.0-0.5 [facility] Comment on above: Performed By: #### C MP, CK #### [facility] [address] [place] [address] Dr. Jasbir Ocampo LYMPH # 1.8 103/ul Normal 1.2-3.8 [facility] Comment on above: Performed By: #### C MP, CK #### [facility] [address] [place] [address] Dr. Jasbir Ocampo Lymphocytes/100 WBC (Bld) 36.7 % Normal 20.5-60.0 [facility] Comment on above: Performed By: #### C MP, CK #### [facility] [address] [place] [address] Dr. Jasbir Ocampo MANUAL DIFF REQ NO Normal [facility] Comment on above: Performed By: #### C MP, CK #### [facility] [address] [place] [address] Dr. Jasbir Ocampo MCH (RBC) [Entitic mass] 31.9 pg Normal 25.9-34.0 [facility] Comment on above: Performed By: #### C MP, CK #### [facility] [address] [place] [address] Dr. Jasbir Ocampo MCHC (RBC) [Mass/Vol] 33.0 g/dL Normal 29.9-35.2 [facility] Comment on above: Performed By: #### C MP, CK #### [facility] [address] [place] [address] Dr. Jasbir Ocampo MCV (RBC) [Entitic vol] 96.8 fL Critically high 80.0-94.0 [facility] Comment on above: Performed By: #### C MP, CK #### [facility] [address] [place] [address] Dr. Jasbir Ocampo MONO # 0.4 103/ul Normal 0.3-0.8 [facility] Comment on above: Performed By: #### C MP, CK #### [facility] [address] [place] [address] Dr. Jasbir Ocampo Monocytes/100 WBC (Bld) 9.0 % Normal 1.7-12.0 [facility] Comment on above: Performed By: #### C MP, CK #### [facility] [address] [place] [address] Dr. Jasbir Ocampo NEUT # 2.5 103/ul Normal 1.4-6.5 [facility] Comment on above: Performed By: #### C MP, CK #### [facility] [address] [place] [address] Dr. Jasbir Ocampo Neutrophils/100 WBC (Bld) 51.0 % Normal 43.0-75.0 [facility] Comment on above: Performed By: #### C MP, CK #### [facility] [address] [place] [address] Dr. Jasbir Ocampo Platelet mean volume (Bld) [Entitic vol] 10.0 fL Normal 9.5-13.5 [facility] Comment on above: Performed By: #### C MP, CK #### [facility] [address] [place] [address] Dr. Jasbir Ocampo PLT 192 103/ul Normal 150-450 [facility] Comment on above: Performed By: #### C MP, CK #### [facility] [address] [place] [address] Dr. Jasbir Ocampo RBC 4.32 106/ul Critically low 4.70-6.10 [facility] Comment on above: Performed By: #### C MP, CK #### [facility] [address] [place] [address] Dr. Jasbir Ocampo WBC 4.9 103/ul Normal 4.0-11.0 [facility] Comment on above: Performed By: #### C MICHELA, CK #### [facility] [address] [place] [address] Dr. Jasbir Ocampo CPKon 10-28-2021 CK [Catalytic activity/Vol] 163 U/L Normal 39-308 [facility] Comment on above: Performed By: #### C MP, CK #### [facility] [address] [place] [address] Dr. Jasbir Ocampo PROF 14(COMP METB)on 022 Albumin [Mass/Vol] 3.6 g/dL Normal 3.4-5.0 [facility] Comment on above: Performed By: #### C MP, CK #### [facility] [address] [place] [address] Dr. Jasbir Ocampo Albumin/Globulin [Mass ratio] 1.1 {ratio} Normal [facility] Comment on above: Performed By: #### C MP, CK #### [facility] [address] [address] [address] Jasbir Ocampo ALP [Catalytic activity/Vol] 71 U/L Normal 46-116 [facility] Comment on above: Performed By: #### C MP, CK #### [facility] [address] [address] [address] Jasbir Ocampo ALT [Catalytic activity/Vol] 24 U/L Normal 16-63 [facility] Comment on above: Performed By: #### C MP, CK #### [facility] [address] [address] [address] Jasbir Ocampo Anion gap [Moles/Vol] 14.2 mmol/L Normal [facility] Comment on above: Performed By: #### C MP, CK #### [facility] [address] [address] [address] Jasbir Ocampo AST [Catalytic activity/Vol] 17 U/L Normal 15-37 [facility] Comment on above: Performed By: #### C MP, CK #### [facility] [address] [address] [address] Jasbir Ocampo Bilirubin [Mass/Vol] 0.6 mg/dL Normal 0.2-1.0 [facility] Comment on above: Performed By: #### C MP, CK #### [facility] [address] [address] [address] Jasbir Ocampo Calcium [Mass/Vol] 8.9 mg/dL Normal 8.5-10.1 [facility] Comment on above: Performed By: #### C MP, CK #### [facility] [address] [address] [address] Jasbir Ocampo Chloride [Moles/Vol] 105 mmol/L Normal 98-107 [facility] Comment on above: Performed By: #### C MP, CK #### [facility] [address] [address] [address] Jasbir Ocampo CO2 [Moles/Vol] 23.5 mmol/L Normal 21.0-32.0 [facility] Comment on above: Performed By: #### C MP, CK #### [facility] [address] [place] [address] Dr. Jasbir Ocampo Creatinine [Mass/Vol] 1.14 mg/dL Normal 0.70-1.30 [facility] Comment on above: Performed By: #### C MP, CK #### [facility] [address] [address] [address] Jasbir Ocampo EGFR-AF MOZAMBICAN >60 Normal >=60 [facility] Comment on above: Performed By: #### C MP, CK #### [facility] [address] [place] [address] Dr. Jasbir Ocampo EGFR-NON AF MOZAMBICAN >60 Normal >=60 [facility] Comment on above: Performed By: #### C MP, CK #### [facility] [address] [place] [address] Dr. Jasbir Ocampo Globulin (S) [Mass/Vol] 3.4 g/dL Normal [facility] Comment on above: Performed By: #### C MP, CK #### [facility] [address] [place] [address] Dr. Jasbir Ocampo Glucose [Mass/Vol] 91 mg/dL Normal 74-106 [facility] Comment on above: Performed By: #### C MP, CK #### [facility] [address] [place] [address] Dr. Jasbir Ocampo Potassium [Moles/Vol] 4.7 mmol/L Normal 3.5-5.1 [facility] Comment on above: Performed By: #### C MP, CK #### [facility] [address] [place] [address] Dr. Jasbir Ocampo Protein [Mass/Vol] 7.0 g/dL Normal 6.4-8.2 [facility] Comment on above: Performed By: #### C MP, CK #### [facility] [address] [place] [address] Dr. Jasbir Ocampo Sodium [Moles/Vol] 138 mmol/L Normal 136-145 [facility] Comment on above: Performed By: #### C MP, CK #### [facility] [address] [place] [address] Dr. Jasbir Ocampo Urea nitrogen [Mass/Vol] 20.0 mg/dL Critically high 7.0-18.0 [facility] Comment on above: Performed By: #### C MP, CK #### [facility] [address] [address] [address] Jasbir Ocampo Urea nitrogen/Creatinine [Mass ratio] 17.5 mg/mg Normal [facility] Comment on above: Performed By: #### C MP, CK #### [facility] [address] [address] [address] Jasbir Ocampo SED RATE [facility] 2021 SED RATE 11 mm/hr Normal <=20 [facility] Comment on above: Performed By: #### S EDR #### [facility] [address] [address] [address] Jasbir Ocampo Ambulatory Clinical Summaryo n 10-28-2020 Ambulatory Clinical Summary {[id number]}CD:[id number] Normal [facility] General Surgery Office/Clini c Noteon 10-28-2020 [...] Family History Family history is negative Normal [facility] Comment on above: Result Comment: Elec tronically Signed By: QING LAYTON, Wolf Rao\Date and Time Signed: 10/28/20 13:11 EDT Pathology Noteon 10-21-2020 Pathology Note [id number] 0CD:[address] [facility] Ambulatory Clinical Summaryo n 10-16-2020 Ambulatory Clinical Summary {[id number]}CD:[id number] Normal [facility] General Surgery Office/Clini c Noteon 10-16-2020 [...] 10/10/2020 Family History Family history is negative [facility] Comment on above: Result Comment: Elec tronically Signed By: QING LAYTON, Wolf Rao\Date and Time Signed: 10/16/20 09:17 EDT Ambulatory Clinical Summaryo n 10-10-2020 Ambulatory Clinical Summary {[id number]}CD:[id number] Normal [facility] Facesheeton 10-10-2020 Facesheet [id number] 0CD:[address] [facility] Insurance Correspondence Off iceon 10-10-2020 Insurance Correspondence Office [id number]:[address] [facility] Consultation Noteon 10-09-19 Consultation Note [id number] 0CD:[address] [facility] Vital Signs Date Time Vital Sign Value Performing Clinician Facility 07-15-2023 15:35-0400 Body height 177.8 cm [employer] Work Phone: [facility] [employer] [facility] 07-15-2023 15:35-0400 Body mass index (BMI) [Ratio] 24.88 kg/m2 [employer] DO Work Phone: [facility] [employer] [facility] 07-15-2023 15:35-0400 Body temperature 98.01 [degF] [employer] [facility]-15-2023 15:35-0400 Body weight 78.65 kg [employer] [facility] 07-15-2023 15:35-0400 Diastolic blood pressure 91 mm[Hg] [employer] [facility] 07-15-2023 15:35-0400 Heart rate 74 /min Naresh Altman DO Work Phone: [facility] [employer] [facility] 07-15-2023 15:35-0400 Respiratory rate 16 /min Naresh Altman [facility] 07-15-2023 15:35-0400 SaO2% (BldA) [Mass fraction] 94 % Naresh Altman DO Work Phone: [facility] 07-15-2023 15:35-0400 Systolic blood pressure 151 mm[Hg] Naresh Altman DO Work Phone: [facility] Encounters Encounter Date Encounter Type Care Provider Facility Start: 07-15-2023 ambulatory Naresh rebolledo DO Work Phone: [facility] Comment on above: Influenza A (Primary Dx); Pneumonia due to influenza A virus; Chronic obstructive pulmonary disease, unspecified COPD type ([facility]); Thrombocytopenia ([facility]); Stage 3 chronic kidney disease, unspecified whether stage 3a or 3b CKD ([facility]); Gastroesophageal reflux disease, unspecified whether esophagitis present; Hypothyroidism, unspecified type; Hyperlipidemia, unspecified hyperlipidemia type; Abnormality of gait and mobility; Severe persistent asthma with exacerbation; 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 Facility:[facility] Start: 03-11-2022 End: 03-12-[address] DOCTOR SEYMOUR Facility:[facility] Start: 10-28-2021 End: 10-29-[address] JELLY KAUR Facility: Plan of Treatment Date Care Activity Detail Author Start: 12-11-2023 Influenza vaccination Influenza Vaccine [facility] Start: 01-26-2001 Fall Risk Screening Fall Risk Screening [facility] Start: 01-26-1986 Administration of varicella zoster vaccine Zoster (Shingles) Vaccine (1 of 2) [facility] [employer] [facility] Start: 01-26-1955 DTaP,Tdap and Td Vaccines (1 - Tdap) DTaP,Tdap and Td Vaccines (1 - Tdap) [facility] Start: 01-26-1954 Adult BMI Screening Adult BMI Screening [facility] Start: 1948 Depression Screening Depression Screening [facility] Start: 1948 Tobacco Screening Tobacco Screening [facility] Start: 1935 Medicare Annual Wellness Visit Medicare Annual Wellness Visit [facility] Payers Date Payer Category Payer Private Health Insurance [facility] AARP SUPPLEMENT [id number] 2016-Present [phone] [address] [place] [address] [id number] 2001 Medicare MEDICARE MEDICAR E PART A & B [id number] 2001-Present [phone] [address] [place] [address] [id number] 1959 Medicare [id number] 1959 Private Health Insurance [id number] Self-pay 1936 Unknown [id number] 1936 Unknown [id number] 1936 Unknown [id number] 1936 Unknown [id number] 1936 Unknown [id number] Social History Date Type Detail Facility Start: 07-15-2023 [facility] End: 04-11-1994 History of tobacco use Current smoker [facility] End: 04-11-1994 History of tobacco use Cigarette Smoker [facility] Start: 05-22-2020 End: 07-15-2023 Cigarettes smoked current (pack per day) - Reported 1 [facility] Start: 07-15-2023 Tobacco use and exposure Smokeless tobacco non-user [facility] Start: 07-15-2023 Alcohol intake Current drinke r of alcohol (finding) [facility] Start: 05-22-2020 End: 07-15-2023 Tobacco use panel [facility] Childcare Unknown [facility] Start: 1935 Sex Assigned At Not on file P [facility] History of Present illness Narrative 07-15-2023 Naresh Altman, DO - 07/15/2023 3:35 PM EDT Note Date & Type Note Facility 07-15-2023 History of Present illness Narrative Patient Name: Adams Noble Date of : 1935 Date of Service: 07/15/2023 Facility: [facility] Type of Visit: Admission H&P Subjective Adams Noble is a 88 y.o. male seen today at [facility] for admission H&P. Adams presents to [facility] for therapies. He was recently admitted to [facility] for influenza A pneumonia. He also has [...] 250 mcg 2 puffs BID from the [place] but has not been taking it. He would like to restart it. 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 He takes plaquenil, tylenol and tramadol for [...] Exam Vitals reviewed. Exam conducted with a tapper bit present (daughter and grand-daughter). Constitutional: General: He [...] Chronic obstructive pulmonary disease, unspecified COPD type ([facility]) 4. Thrombocytopenia ([facility]) 5. Stage 3 chronic kidney disease, unspecified whether stage 3a or 3b CKD ([facility]) 6. Gastroesophageal reflux [...] Naresh Altman DO documented in this encounter [facility] Clinical Note 10-10-2020 Note Date & Type [...] Chronic obstructive pulmonary disease, unspecified COPD type ([facility]) Thrombocytopenia ([facility]) Unspecified thrombocytopenia Stage 3 chronic kidney disease, unspecified whether stage 3a or 3b CKD ([facility]) Gastroesophageal reflux disease, [...] content) DATE CREATED AUTHOR 10/29/2020 [facility] DATE CREATED AUTHOR AUTHOR'S ORGANIZ ATION 08/19/2022 [facility] Care Teams (unrecognized sec tion and content) 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 [email or web address] [facility]. provides no warranty or guarantee of the accuracy or completeness of information in this document.
== END 2023-10-03 11:15 | disposition home or self-care (01) ==
LOC: EC 11:14
PROVIDERS: PCP Family Medicine; Visit Provider Orthopaedic Surgery
DX: M25.522 Pain in left elbow (principal)
CPT/HCPCS: 73080